=== PATIENT | male | born 1940 | race Caucasian/White ===

== ENCOUNTER 2022-05-02 15:31 | Inpatient (IN) | payer MEDICARE, OTHER ==
[2022-05-02] MEDS ORDERED: Alteplase PER PHARMACY Stroke 1 EACH MISC MISCELLANE PRN (15:47)
--- NOTE | 2022-05-02 15:51 | CT ---
EXAMINATION TYPE: CT brain wo con for TPA DATE OF EXAM: 05/02/2022 COMPARISON: 05/01/2014 HISTORY: 82-year-old male Neuro deficits, code alteplase TECHNIQUE: Examination was done in axial plane without intravenous contrast. Coronal and sagittal r econstructions performed. CT DLP: 1176.6 mGycm Automated exposure control for dose reduction was used. FINDINGS: There is no evidence of acute intracranial hemorrhage, acute ischemic changes, mass, mass-effect, or extra-axial fluid collection. There is no effacement of cerebral sulci or basal subarachnoid cister ns. There is no midline shift. Lee-white matter distinction is preserved. Hyperdense M1 segment left MCA, axial image 23, new from the 2015 exam. Mild ventriculomegaly is unchanged. Mild white matter hypodensities posterior hemispheres. Mastoid air cells are well pneumatized. Visualized paranasal sinuses are well pneumatized. IMPRESSION: Hyperdense M1 segment left MCA, new from 2015. Acute left MCA thrombus not excluded. No acute intracr anial hemorrhage, mass effect, or midline shift seen. Mild ventriculomegaly is unchanged and may part related to central cerebral atrophy.
[2022-05-02] MEDS ORDERED: ALTEPLASE BOLUS FOR STROKE 5 MG in EMPTY SYRINGE 1 SYR IV STA (15:52)
[2022-05-02] MEDS ORDERED: ALTEPLASE IV STA (15:52)
--- NOTE | 2022-05-02 15:53 | ED ---
Neuro HPI - General Stated Complaint: CBA Time Seen by Provider: 05/02/22 15:31 Source: patient, EMS, RN notes reviewed, old records reviewed Mode of arrival: EMS - History of Present Illness Is the patient presenting with stroke symptoms?: Yes Initial Comments: 82-year-old male with a history of ooaed-agd-tfox amputations bilaterally from peripheral vascular disease history of hypertension and hypertensive cardiovascular disease developmental delay and bipolar disorder who apparently took a nap around 12:30 today he was in his normal state he woke up around 2 hours later is found have right facial droop some slurred speech right upper extremity weakness. Patient is a poor historian no further information was available the information gathered this time was from paramedics. - Related Data Home Medications: Home Medications Medication Instructions Recorded Confirmed Metoprolol Succinate [Toprol XL] 25 mg PO DAILY@0800 04/09/05/02/22 QUEtiapine [SEROquel] 50 mg PO HS@199906/03/14 05/02/22 Bacitracin Zinc Oint 1 applic TOPICAL BID@0800,199905/02/22 05/02/22 Cholecalciferol [Vitamin D3 (25 50 mcg PO HS@199905/02/22 05/02/22 Mcg = 1000 Iu)] Melatonin 3 mg PO HS@199905/02/22 05/02/22 Multivitamins, Thera [Multivitamin 1 tab PO HS@199905/02/22 05/02/22 (formulary)] Sertraline [Zoloft] 50 mg PO HS@199905/02/22 05/02/22 Tamsulosin [Flomax] 0.4 mg PO DAILY@1600 05/02/22 05/02/22 amLODIPine [Norvasc] 5 mg PO DAILY@0800 05/02/22 05/02/22 hydrALAZINE HCL [Apresoline] 25 mg PO TID@0800,1600,199905/02/22 05/02/22 Allergies/Adverse Reactions: Allergies Allergy/AdvReac Type Severity Reaction Status Date / Time tuberculin, purified protein Allergy Unknown Verified 05/02/22 17:17 deriva [tuberculin,purif.prot.deriv.] Review of Systems ROS Statement: Those systems with pertinent positive or pertinent negative responses have been documented in the HPI. ROS Other: All systems not noted in ROS Statement are negative. Limitations: ROS unobtainable due to patients medical condition General Exam - General Exam Comments Initial Comments: This a well-developed well-nourished awake alert soda respond male who at times is respond and other times does not really does appear to be awake General appearance: alert, in no apparent distress Head exam: Present: atraumatic, normocephalic, normal inspection Eye exam: Present: normal appearance, PERRL, EOMI. Absent: scleral icterus, conjunctival injection, periorbital swelling ENT exam: Present: other (Right facial asymmetry with forehead sparing) Neck exam: Present: normal inspection, full ROM, other. Absent: tenderness, meningismus, lymphadenopathy Respiratory exam: Present: normal lung sounds bilaterally (No stridor JVD or bruits). Absent: respiratory distress, wheezes, rales, rhonchi, stridor Cardiovascular Exam: Present: regular rate, normal rhythm, normal heart sounds. Absent: systolic murmur, diastolic murmur, rubs, gallop, clicks GI/Abdominal exam: Present: soft, normal bowel sounds. Absent: distended, te nderness, guarding, rebound, rigid Extremities exam: Present: full ROM, normal capillary refill, other (Eqyiv-xtr-qskj agitation bilaterally with no evidence of any wound dehiscence) Neurological exam: Present: altered, motor sensory deficit (Right upper extremity weakness). Absent: CN II-XII intact (Right facial droop) Psychiatric exam: Present: normal affect, normal mood Skin exam: Present: warm, dry, intact, normal color. Absent: rash Stroke MDM - Lab Data Result diagrams: 05/02/22 15:54 05/02/22 15:54 Lab Results 05/02/22 05/02/22 05/02/22 Range/Units 15:54 15:54 15:54 WBC 8.4 (3.8-10.6) k/uL RBC 3.85 L (4.30-5.90) m/uL Hgb 12.2 L (13.0-17.5) gm/dL Hct 35.2 L (39.0-53.0) % MCV 91.4 (80.0-100.0) fL MCH 31.8 (25.0-35.0) pg MCHC 34.8 (31.0-37.0) g/dL RDW 13.0 (11.5-15.5) % Plt Count 96 L (150-450) k/uL MPV 11.6 Neutrophils % 56 % Lymphocytes % 34 % Monocytes % 4 % Eosinophils % 3 % Basophils % 0 % Neutrophils # 4.7 (1.3-7.7) k/uL Lymphocytes # 2.8 (1.0-4.8) k/uL Monocytes # 0.4 (0-1.0) k/uL Eosinophils # 0.3 (0-0.7) k/uL Basophils # 0.0 (0-0.2) k/uL Manual Slide Review Performed PT 10.7 (9.0-12.0) sec INR 1.0 (<1.2) APTT 26.9 (22.0-30.0) sec Sodium 133 L (137-145) mmol/L Potassium 4.2 (3.5-5.1) mmol/L Chloride 101 (98-107) mmol/L Carbon Dioxide 26 (22-30) mmol/L Anion Gap 6 mmol/L BUN 22 H (9-20) mg/dL Creatinine 0.70 (0.66-1.25) mg/dL Est GFR (CKD-EPI)AfAm >90 (>60 ml/min/1.73 sqM) Est GFR (CKD-EPI)NonAf 89 (>60 ml/min/1.73 sqM) Glucose 108 H (74-99) mg/dL POC Glucose (mg/dL) (70-110) mg/dL POC Glu Athletic Instructor ID Calcium 8.2 L (8.4-10.2) mg/dL Total Bilirubin 0.2 (0.2-1.3) mg/dL AST 24 (17-59) U/L ALT 14 (4-49) U/L Alkaline Phosphatase 77 (38-126) U/L Troponin I (0.000-0.034) ng/mL Total Protein 6.4 (6.3-8.2) g/dL Albumin 3.6 (3.5-5.0) g/dL 05/02/22 05/02/22 Range/Units 15:54 15:56 WBC (3.8-10.6) k/uL RBC (4.30-5.90) m/uL Hgb (13.0-17.5) gm/dL Hct (39.0-53.0) % MCV (80.0-100.0) fL MCH (25.0-35.0) pg MCHC (31.0-37.0) g/dL RDW (11.5-15.5) % Plt Count (150-450) k/uL MPV Neutrophils % % Lymphocytes % % Monocytes % % Eosinophils % % Basophils % % Neutrophils # (1.3-7.7) k/uL Lymphocytes # (1.0-4.8) k/uL Monocytes # (0-1.0) k/uL Eosinophils # (0-0.7) k/uL Basophils # (0-0.2) k/uL Manual Slide Review PT (9.0-12.0) sec INR (<1.2) APTT (22.0-30.0) sec Sodium (137-145) mmol/L Potassium (3.5-5.1) mmol/L Chloride (98-107) mmol/L Carbon Dioxide (22-30) mmol/L Anion Gap mmol/L BUN (9-20) mg/dL Creatinine (0.66-1.25) mg/dL Est GFR (CKD-EPI)AfAm (>60 ml/min/1.73 sqM) Est GFR (CKD-EPI)NonAf (>60 ml/min/1.73 sqM) Glucose (74-99) mg/dL POC Glucose (mg/dL) 111 H (70-110) mg/dL POC Glu Athletic Instructor ID Rodriguez, Edgar Calcium (8.4-10.2) mg/dL Total Bilirubin (0.2-1.3) mg/dL AST (17-59) U/L ALT (4-49) U/L Alkaline Phosphatase (38-126) U/L Troponin I <0.012 (0.000-0.034) ng/mL Total Protein (6.3-8.2) g/dL Albumin (3.5-5.0) g/dL - NIH Stroke Scale 1a. Level of Consciousness: (1) not alert, arousable 1b. LOC Questions: (2) answers no questions correctly 1c. LOC Commands: (2) performs no tasks correctly 2. Best Gaze: (0) normal 3. Visual: (0) no visual loss 4. Facial Palsy: (2) partial paralysis 5a. Motor Arm Left: (0) no drift 5b. Motor Arm Right: (3) no gravity effort 6a. Motor Leg Left: (0) no drift 6b. Motor Leg Right: (0) no drift 7. Limb Ataxia: (2) present 2 limbs 8. Sensory: (0) normal 9. Best Language: (1) mild/moderate aphasia 10. Dysarthria: (1) mild/moderate dysarthria 11. Extinction/Inattention: (0) no abnormality - Thrombolytic Inclusion/Exclusion Thrombolytic Inclusion Criteria: Symptom Onset < 4.5 h - Core Measures AMI Core Measures Followed: Yes - Medical Decision Making I did reevaluate patient on multiple occasions he did receive TPA he is a DO NOT RESUSCITATE no code patient but caregiver did request medication be given patient did have TPA/alteplase given ECG responding as improvement in his symptoms since arrival. Was pt. sent in by a medical professional or institution? @ No -[by , PA, COMPUTER HARDWARE DEVELOPER, urgent care, hospital, or senior living] Did you speak to anyone other than the patient for history? @ Paramedics upon arrival -[EMS, parent, family, police, friend?] Did you review nursing and triage notes? @ Gas and agree-[agree or disagree, why?] Were old charts reviewed? @ Yes-[outside hosp., previous admissions, EMS record, old EKG, old radiological studies, urgent care reports/EKGs, senior living records?] Differential Diagnosis? @ And she will bleed versus ischemic stroke versus hypoglycemia blood sugar was adequate no evidence of any bleeding-[chest pain, altered mental status abdominal pain women, abdominal pain men, vaginal bleeding, weakness, fever, d yspnea, syncope, headache, dizziness, GI bleed, back pain, seizure] EKG interpreted by me (3pts min.)? @ S as above as as above yes-[none] X-rays interpreted by me (1pt min.)? @ -[none] CT interpreted by me (1pt min.)? @ Yes as above-[none] U/S interpreted by me (1pt. min.)? @ -[none] What testing was considered but not performed? (CT, X-rays, U/S, labs)? Why? @ [CT, X-rays, U/S, labs? Why?] What meds were considered but not given? Why? @ -[none] Did you discuss the management of the patient with other professionals? @ Dr. Charles, Dr. Leroy, Dr. Joaquin, Dr. Guillaume's service- [professionals i.e. Dr, PA, COMPUTER HARDWARE DEVELOPER, Lab, RT, Psych Nurse, Gaming Worker, Cyanide Furnace Operator, Teacher, Primer Charging Tool Setter, field case manager? Give summary] Did you reconcile home meds? @ -[none] Was smoking cessation discussed for >3mins.? @ -[none] Was critical care preformed (if so, how long)? @ Yes 49 minutes-[none] Were there social determinants of health that impacted care today? How? (Homelessness, low income, unemployed, alcoholism, drug addiction, transportation, low edu. Level, literacy, decrease access to med. care, group home, rehab)? @ No-[Homelessness, low income, unemployed, alcoholism, drug addiction, transportation, low edu. Level, literacy, decrease access to med. care, group home, rehab?] Was there de-escalation of care discussed even if they declined? (Discuss DNR or withdrawal of care, Hospice)? @ Yes patient is a DO NOT RESUSCITATE no resuscitation medication only-[Discuss DNR or withdrawal of care, Hospice?] What co-morbidities impacted this encounter? (DM, HTN, Smoking, COPD, CAD, Cancer, CVA, Hep., AIDS, mental health diagnosis, sleep apnea, morbid obesity)? @ Hypertensive cardiovascular disease, peripheral vascular disease -[DM, HTN, Smoking, COPD, CAD, Cancer, CVA, Hep., AIDS, mental health diagnosis, sleep ap ruthy, morbid obesity?] Was patient admitted / discharged? @ Patient was admitted to this facility to ICU-[hospital course] Undiagnosed new problem with uncertain prognosis? @ -[none] Drug Therapy requiring intensive monitoring for toxicity (Heparin, Nitro, Insulin, Cardizem)? @ -[none] Were any procedures done? @ -[none] Diagnosis/symptom? @ Acute ischemic stroke-[default] Acute, or Chronic, or Acute on Chronic? @ Acute-[default] Uncomplicated (without systemic symptoms) or Complicated (systemic symptoms)? @ Systemic symptoms were positive for facial droop and aphasia and right upper extremity [default] Side effects of treatment? @ -[none] Exacerbation, Progression, or Severe Exacerbation] @ -[no] Poses a threat to life or bodily function? @ Potential-[no] - Radiology Data interpreted by me: I did review the imaging evidence of a left MCA occlusion both seen and evidence of density in the plain CT as well as on the contrast CT. - EKG Data -: EKG Interpreted by Me EKG shows normal: sinus rhythm (EKG read by me sinus rhythm a 69. Interval 181 QRS duration 138 daily since QTC 420/447 red bundle-branch block pattern nonspecific anterior configuration) Past Medical History Past Medical History: COPD, Eye Disorder, GERD/Reflux, Hypertension, Seizure Disorder, Vascular Disorder Additional Past Medical History / Comment(s): developmental delay/mental retardation. Ulcer right ankle, 2010 ULCER, SEIZURES YEARS AGO NOT TAKING MEDS FOR IT SINCE OCTOBER 2013, hypertension, PAD, carotid artery disease, hyponatremia, COPD, GERD. History of Any Multi-Drug Resistant Organisms: None Reported Additional Past Surgical History / Comment(s): L Carotid endarectomy, angiogram was done on 05/24/2014 at [facility]. Past Anesthesia/Blood Transfusion Reactions: No Reported Reaction Additional Psychological History / Comment(s): NOT ON MEDS FOR IT CURRENTLT DF/T LETHARGY - Past Family History Father Family Medical History: Unable to Obtain (Patient is adopted for further information.) Mother Family Medical History: Unable to Obtain (Patient is adopted no further information.) Course Vital Signs 05/02/22 05/02/22 05/02/22 15:35 16:06 16:15 Temperature 98.0 F Pulse Rate 68 67 67 Respiratory 18 19 21 Rate Blood Pressure 112/72 133/79 O2 Sat by Pulse 98 97 97 Oximetry 05/02/22 05/02/22 05/02/22 16:30 16:45 17:00 Temperature Pulse Rate 65 71 69 Respiratory 21 15 20 Rate Blood Pressure 132/77 116/66 126/77 O2 Sat by Pulse 96 95 96 Oximetry 05/02/22 05/02/22 05/02/22 17:30 17:45 18:00 Temperature Pulse Rate 68 68 70 Respiratory 19 17 16 Rate Blood Pressure 107/59 72/52 98/71 O2 Sat by Pulse 97 98 98 Oximetry 05/02/22 18:15 Temperature Pulse Rate 68 Respiratory 15 Rate Blood Pressure 117/70 O2 Sat by Pulse 98 Oximetry - Reevaluation(s) Reevaluation #1: 05/02/22 15:53 The patient was a code alteplase. CT was done with and without contrast. Interpretation by me initially Imaging reveals evidence of density in the right MCA the left side this is confirmed with evidence of a thrombosed on CT angio. Reevaluation #2: 05/02/22 19:15 Reevaluation the patient post alteplase reveals improvement in his facial symptoms as well as he is moving his Reevaluation #3: 05/02/22 19:16 I did discuss the case with Dr. Guillaume service patient is not a candidate for intervention. Reevaluation #4: 05/02/22 19:17 I also discussed case with Dr. Leroy from neurology and Dr. Spence in from ICU. Critical Care Time Critical Care Time: Yes Total Critical Care Time: 49 Critical Care Time: 49 minutes of critical care time which includes initial presentation with hist ory physical discussed with paramedics chart review multiple reevaluation the patient discussed with multiple physicians admission orders documentation the above Disposition Clinical Impression: Cerebrovascular accident (CVA) Disposition: ADMITTED IP TO THIS [facility] Condition: Fair Referrals: None,Stated [Primary Care Provider] - 1-2 days Decision Date: 05/02/22 Decision Time: 18:00
[2022-05-02 15:58] LABS: Glucose,Whole Blood 111 mg/dL (70-110)
--- NOTE | 2022-05-02 16:02 | CT ---
EXAMINATION TYPE: CT angio head neck DATE OF EXAM: 05/02/2022 COMPARISON: CT head same day HISTORY: 82-year-old male neurologic deficit on the right, acute, stroke suspected TECHNIQUE: Contiguous axial scanning of the head and neck performed with IV Contrast, patient injecte d with 70 mL of Isovue 370. Coronal/sagittal reconstructions performed. 3-D reconstructions generated on a dedicated independent workstation. CT DLP: 448.8 mGycm Automated exposure control for dose reduction was used. FINDINGS: NECK: There appears to be a very large hiatal hernia involving the entire stomach and occupying the left gr eater than right lower thoraces, the hernia occupies up to the left mid chest on the left [id number] atherosclerotic changes at the arch vessel origins. Moderate atherosclerotic narrowing proximal subclavian artery on the right. Moderate to severe focal stenosis origin of the right vertebral artery. Left vertebral artery is slightly more dominant. The right vertebral artery becomes even more hypopla stic at the V4 segment. Severe atherosclerotic calcification at the right carotid bifurcation with severe, greater than 80% n arrowing at the origin of both right external and internal carotid arteries by NASCET criteria. Moderate, 50% narrowing distal left common carotid artery and mild, less than 25% involving the left carotid bulb. There appears to be a large 8 mm sialolith left submandibular gland. HEAD: Again, hypoplastic V4 segment right vertebral artery. Otherwise, the left vertebral and basilar arter ies are patent. There is persistent origin left posterior cerebral artery. Otherwise, the poste rior circulation is patent. Moderate atherosclerotic calcifications in the bilateral carotid siphons without significant stenosis . There is cut off of at the distal M1 segment left MCA. One of the branch vessels appears to continue opacification. Refer to coronal image 32 and axial image 672. Remainder of the anterior circulation is patent. No aneurysmal change is seen. IMPRESSION: HEAD: 1. Acute large vessel occlusion at the M1/M2 junction left MCA. One of the M2 branch vessels remain o pacified. Critical findings called to Dr. Nix in the ER at 3:45pm. 2. Persistent origin left EVENT AV OPERATOR. Hypoplastic right vertebral artery. NECK: 3. Severe, greater than 80% proximal right ICA stenosis. 4. Moderate, approximately 50% distal left CCA stenosis. 5. Moderate atherosclerotic narrowing proximal right subclavian artery. Moderate to severe focal sten osis at the origin of the hypoplastic right vertebral artery. 6. Note a very large hiatal hernia. On the left, this occupies the left mid and lower lung. On the ri ght, at least the entire lower lung is occupied.
[2022-05-02 16:14] LABS: Partial Thromboplastin Time 26.9 sec (22.0-30.0); Prothrombin Time 10.7 sec (9.0-12.0)
[2022-05-02 16:17] LABS: Basophils % (A) 0 %; Eosinophils # (A) 0.3 k/uL (0-0.7); Eosinophils % (A) 3 %; HCT 35.2 % (39.0-53.0); HGB 12.2 gm/dL (13.0-17.5); Lymphocytes # (A) 2.8 k/uL (1.0-4.8); Lymphocytes % (A) 34 %; MCH 31.8 pg (25.0-35.0); MCHC 34.8 g/dL (31.0-37.0); MCV 91.4 fL (80.0-100.0); Mean Platelet Volume 11.6; Monocytes # (A) 0.4 k/uL (0-1.0); Monocytes % (A) 4 %; Neutrophils # (A) 4.7 k/uL (1.3-7.7); Neutrophils % (A) 56 %; RBC 3.85 m/uL (4.30-5.90); WBC 8.4 k/uL (3.8-10.6)
[2022-05-02 16:21] LABS: ALT 14 U/L (4-49); AST 24 U/L (17-59); African American GFR (CKD) >90 (>60 ml/min/1.73 sqM); Albumin 3.6 g/dL (3.5-5.0); Alkaline Phosphatase 77 U/L (38-126); Anion Gap 6 mmol/L; Blood Urea Nitrogen 22 mg/dL (9-20); Calcium 8.2 mg/dL (8.4-10.2); Carbon Dioxide 26 mmol/L (22-30); Chloride 101 mmol/L (98-107); Glucose 108 mg/dL (74-99); Non-African American GFR(CKD) 89 (>60 ml/min/1.73 sqM); Potassium 4.2 mmol/L (3.5-5.1); Sodium 133 mmol/L (137-145); Total Bilirubin 0.2 mg/dL (0.2-1.3); Total Protein 6.4 g/dL (6.3-8.2)
[2022-05-02] MEDS ORDERED: SODIUM CHLORIDE 0.9% 50 ML MINI-BAG IV ONE ×2 (16:52→20:36)
[2022-05-02 17:43] LABS: Platelet Count 96 k/uL (150-450)
--- NOTE | 2022-05-02 17:44 | XR ---
EXAMINATION TYPE: XR chest 2V DATE OF EXAM: 05/02/2022 COMPARISON: 05/01/2014 HISTORY: Altered mental status TECHNIQUE: 2 views FINDINGS: There is some patchy infiltrate in the right lung. There is elevated left diaphragm. Thorac ic aorta is atheromatous. There are chest leads. There is large hiatal hernia. IMPRESSION: Patchy right-sided interstitial infiltrate. 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 Patchy density in the right lung is new compared to the old exam.
[2022-05-02] MEDS: SODIUM CHLORIDE 0.9% 1,000 ML IV STA ×3 (19:16→20:58)
[2022-05-02 20:19] LABS: Glucose,Whole Blood 126 mg/dL (70-110)
[2022-05-02] MEDS ORDERED: NALOXONE 0.4 MG/ML 1 ML VIAL IV PRN (20:34)
[2022-05-02] MEDS: MELATONIN 3 MG TABLET PO SCH (20:56)
[2022-05-02] MEDS: hydrALAZINE HCL 25 MG TAB PO SCH (20:56)
[2022-05-02] MEDS: QUEtiapine 50 MG TAB PO SCH (20:56)
[2022-05-02] MEDS: CHOLECALCIFEROL 25 MCG (1000 IU) TABLET PO SCH (20:56)
[2022-05-02] MEDS: MULTIVITAMINS, THERA 1 EACH TAB PO SCH (20:56)
[2022-05-02] MEDS: ATORVASTATIN 80 MG TAB PO SCH (20:57)
[2022-05-02] MEDS: SERTRALINE 50 MG TAB PO SCH (20:57)
[2022-05-02] MEDS: SODIUM CHLORIDE 0.9% 1,000 ML IV SCH (20:59)
[2022-05-02] MEDS: FAMOTIDINE 20 MG/2 ML VIAL IV SCH (22:43)
--- NOTE | 2022-05-03 00:04 | P.HPIM ---
History of Present Illness H&P Date: 05/02/22 The patient is an 82-year-old male with a PMH of peripheral arterial disease with bilateral AKA, COPD, hypertension, seizure disorder, developmental delay who was brought into the emergency room by his grades 7 and 8 teacher due to concerns for stroke. The patient was confused at the time of interview with history obtained from the ED provider and from the patient's grades 7 and 8 teacher at the bedside. The patient had reportedly taken a nap earlier today at around 12:30 PM and when he woke up at around 2, the grades 7 and 8 teacher noticed that the patient now was confused and had a right-sided facial droop as well as slurred speech. He immediately activated EMS who brought the patient emergency room. Code stroke was activated and the case was discussed by the ED physician with neuro second language tutor. CT angiogram revealed an acute large vessel occlusion of the left MCA. The neuro second language tutor recommended TPA which was subsequently administered. The patient was thereafter taken to the medical ICU where he was seen and evaluated. As per the grades 7 and 8 teacher at the bedside, the patient's slurred speech and facial droop had resolved but he continued to be confused albeit improved from presentation. The patient was a very poor historian but denied any active complaints at the time of interview. Chest x-ray in the emergency room revealed patchy right-sided interstitial infiltrate with an elevated left diaphragm suggestive of diaphragmatic paralysis. EKG had revealed sinus rhythm at 69 bpm with right bundle branch blo ck with Q waves in the inferior leads as reviewed by me. Laboratory evaluation was remarkable for platelet count of 96, down from 172 in 2015. Review of systems: Unable to obtain due to mental status Physical examination: General: non toxic, no distress, appears at stated age, normal weight Derm: no unusual rashes/lesions, warm Head: atraumatic, normocephalic, symmetric Eyes: EOMI, no lid lag, anicteric sclera, pupils equal round reactive to light ENT: Nose and ears atraumatic Neck: No cervical lymphadenopathy, trachea midline, supple Mouth: no lip lesion, mucus membranes moist Cardiovascular: S1S2 reg, no murmur, positive dorsalis pedis pulse bilateral, no edema Lungs: CTA bilateral, no rhonchi, no rales, no accessory muscle use Abdominal: soft, nontender to palpation, no guarding Ext: Bilateral AKA, muscle strength 5 out of 5 of bilateral upper extremities, no gross muscle atrophy, no contractures Neuro: CN II-XI grossly intact, no gross focal neuro deficits Psych: Confused, oriented only to self, not oriented to time or place Assessment/plan 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 -Neurology consulted -Follow-up CT brain without contrast post TPA -Neuro checks -GENERAL MILLING SUPERINTENDENT and PT consults -Nothing by mouth for now -Optimal blood pressure control Thrombocytopenia -Unclear etiology -Monitor for now Chronic conditions: Hypertension, hyperlipidemia -Continue with home meds DVT prophylaxis -Bakari AKA, s/p TPA The patient is admitted with an anticipated greater than 2 midnight stay for evaluation of acute CVA CODE STATUS: Full Code Discussed with: Secondary Connector Armature, ED physician Anticipated discharge date: 2-[address]: Home Review of Systems ROS unobtainable: due to mental status Past Medical History Past Medical History: Coronary Artery Disease (CAD), COPD, Eye Disorder, GERD/ Reflux, Hypertension, Seizure Disorder, Vascular Disorder Additional Past Medical History / Comment(s): developmental delay/mental retardation. Ulcer right ankle, 2010 ULCER, SEIZURES YEARS AGO NOT TAKING MEDS FOR IT SINCE OCTOBER 2013, PAD, hyponatremia. History of Any Multi-Drug Resistant Organisms: None Reported Additional Past Surgical History / Comment(s): L Carotid endarectomy, angiogram was done on 05/24/2014 at [facility], bilateral AKA Past Anesthesia/Blood Transfusion Reactions: No Reported Reaction Past Psychological History: Bipolar Additional Psychological History / Comment(s): NOT ON MEDS FOR IT CURRENTLT DF/T LETHARGY Smoking Status: Former smoker Past Alcohol Use History: Rare Past Drug Use History: None Reported Additional Drug Use History / Comment(s): patient drinks 1 NA beer per month - Past Family History Father Family Medical History: Unable to Obtain Mother Family Medical History: Unable to Obtain Additional Family Medical History / Comment(s): Patient confused Medications and Allergies Home Medications Medication Instructions Recorded Confirmed Type Metoprolol Succinate [Toprol XL] 25 mg PO DAILY@0800 04/09/14 05/02/22 History QUEtiapine [SEROquel] 50 mg PO HS@199906/03/14 05/02/22 History Bacitracin Zinc Oint 1 applic TOPICAL BID@799,199905/02/22 05/02/22 History Cholecalciferol [Vitamin D3 (25 50 mcg PO HS@199905/02/22 05/02/22 History Mcg = 1000 Iu)] Melatonin 3 mg PO HS@199905/02/22 05/02/22 History Multivitamins, Thera [Multivitamin 1 tab PO HS@199905/02/22 05/02/22 History (formulary)] Sertraline [Zoloft] 50 mg PO HS@199905/02/22 05/02/22 History Tamsulosin [Flomax] 0.4 mg PO DAILY@1600 05/02/22 05/02/22 History amLODIPine [Norvasc] 5 mg PO DAILY@0800 05/02/22 05/02/22 History hydrALAZINE HCL [Apresoline] 25 mg PO TID@0800,1600,199905/02/22 05/02/22 History Allergies Allergy/AdvReac Type Severity Reaction Status Date / Time tuberculin, purified protein Allergy Unknown Verified 05/02/22 17:17 deriva [tuberculin,purif.prot.deriv.] Physical Exam Vitals: Vital Signs Temp Pulse Resp BP Pulse Ox 05/02/22 23:15 71 19 135/75 96 05/02/22 23:00 71 20 118/64 95 05/02/22 22:45 64 5 L 96 05/02/22 22:30 64 13 115/79 91 L 05/02/22 22:15 68 22 96 05/02/22 22:00 64 21 117/81 95 05/02/22 21:45 65 14 117/81 95 05/02/22 21:30 71 15 113/79 95 05/02/22 21:15 71 14 113/79 95 05/02/22 21:00 74 16 129/71 97 05/02/22 20:45 70 22 129/71 95 05/02/22 20:30 99.0 F 73 13 139/124 94 L 05/02/22 20:21 99.0 F 05/02/22 20:15 71 13 139/124 97 05/02/22 20:11 139/124 05/02/22 19:45 14 121/89 96 05/02/22 19:30 66 28 H 119/78 96 05/02/22 19:15 71 10 L 105/66 97 05/02/22 19:00 67 13 105/53 97 05/02/22 18:45 67 16 91/56 98 05/02/22 18:30 70 17 127/74 97 05/02/22 18:15 68 15 117/70 98 05/02/22 18:00 70 16 98/71 98 05/02/22 17:45 68 17 72/52 98 05/02/22 17:30 68 19 107/59 97 05/02/22 17:00 69 20 126/77 96 05/02/22 16:45 71 15 116/66 95 05/02/22 16:30 65 21 132/77 96 05/02/22 16:15 67 21 133/79 97 05/02/22 16:06 67 19 112/72 97 05/02/22 15:35 98.0 F 68 18 98 Intake and Output 05/02/22 05/02/22 05/03/22 14:59 22:59 06:59 Intake Total 200 100 Output Total 0 Balance 200 100 Intake: IV 200 100 Sodium Chloride 0.9% 1, 200 100 000 ml @ 100 mls/hr IV . Q10H [facility] Rx#:[id number] Output: Urine 0 Other: # Voids 1 Weight 52.526 kg Results CBC & Chem 7: 05/02/22 15:54 05/02/22 15:54 Labs: Abnormal Lab Results - Last 24 Hours (Table) 05/02/22 05/02/22 05/02/22 Range/Units 15:54 15:54 15:56 RBC 3.85 L (4.30-5.90) m/uL Hgb 12.2 L (13.0-17.5) gm/dL Hct 35.2 L (39.0-53.0) % Plt Count 96 L (150-450) k/uL Sodium 133 L (137-145) mmol/L BUN 22 H (9-20) mg/dL Glucose 108 H (74-99) mg/dL POC Glucose (mg/dL) 111 H (70-110) mg/dL Calcium 8.2 L (8.4-10.2) mg/dL 05/02/22 Range/Units 20:17 RBC (4.30-5.90) m/uL Hgb (13.0-17.5) gm/dL Hct (39.0-53.0) % Plt Count (150-450) k/uL Sodium (137-145) mmol/L BUN (9-20) mg/dL Glucose (74-99) mg/dL POC Glucose (mg/dL) 126 H (70-110) mg/dL Calcium (8.4-10.2) mg/dL Thrombosis Risk Factor Assmnt - Choose All That Apply Each Risk Factor Represents 3 Points: Age 75 years or older Other congenital or acquired thrombophilia - If yes, enter type in comment: No Each Risk Factor Represents 5 Points: Stroke (< 1 month) Thrombosis Risk Factor Assessment Total Risk Factor Score: 8 Thrombosis Risk Factor Assessment Level: High Risk
[2022-05-03] MEDS: SODIUM CHLORIDE 0.9% 1,000 ML IV SCH ×2 (04:55→15:30)
[2022-05-03 06:19] LABS: Basophils # (A) 0.1 k/uL (0-0.2); Basophils % (A) 0 %; Eosinophils # (A) 0.2 k/uL (0-0.7); Eosinophils % (A) 1 %; HCT 37.3 % (39.0-53.0); HGB 12.7 gm/dL (13.0-17.5); Lymphocytes # (A) 4.7 k/uL (1.0-4.8); Lymphocytes % (A) 38 %; MCH 31.7 pg (25.0-35.0); MCV 93.2 fL (80.0-100.0); Mean Platelet Volume 11.9; Monocytes # (A) 0.5 k/uL (0-1.0); Monocytes % (A) 4 %; Neutrophils # (A) 6.9 k/uL (1.3-7.7); Neutrophils % (A) 55 %; Platelet Count 102 k/uL (150-450); RBC 4.01 m/uL (4.30-5.90); WBC 12.6 k/uL (3.8-10.6)
[2022-05-03 06:32] LABS: African American GFR (CKD) >90 (>60 ml/min/1.73 sqM); Anion Gap 7 mmol/L; Blood Urea Nitrogen 14 mg/dL (9-20); Calcium 8.3 mg/dL (8.4-10.2); Carbon Dioxide 24 mmol/L (22-30); Chloride 105 mmol/L (98-107); Glucose 93 mg/dL (74-99); Magnesium 1.8 mg/dL (1.6-2.3); Non-African American GFR(CKD) >90 (>60 ml/min/1.73 sqM); Potassium 4.2 mmol/L (3.5-5.1); Sodium 136 mmol/L (137-145)
--- NOTE | 2022-05-03 07:17 | P.CNPUL ---
History of Present Illness Consult date: 05/03/22 Chief complaint: CVA History of present illness: 82-year-old male patient, with multiple medical problems and comorbidities. The patient is quite debilitated and the patient has developmental delay in addition to severe peripheral vascular disease and the patient has undergone previous AKA in addition to that the patient has COPD and hypertension and seizure disorder. The patient was brought to the emergency department by his fashion designer due to concerns of stroke. At that time, the patient was confused. The patient apparently was taking a nap at around 12:30 PM and he woke up at around 2 PM and he was noted to be confused and that has been some right facial droop also. Based on that, he came into the emergency. CAT scan of the brain was done in the form of CT angiogram and the patient had an acute large vessel occlusion involving the left MCA. The neuro male infertility specialist recommended TPA. This was administered in the emergency department and the patient following that was transferred to the intensive care unit for further management. Note that he does have also a component of chronic thrombocytopenia. His platelet count has been 96 yesterday and 102 today. On today's evaluation, the patient has a don't was about 4.6 with a hemoglobin 12.7 and a platelet count of 102. BUN is at 14 with a creatinine of 0.6 and a sodium level is at 136. Troponins are negative. Liver function tests are essentially within normal limits. 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 On today's evaluation,the patient has some residual weakness in his right upper extremity. He also has some residual right facial droop. He is unable to communicate and is unable to provide adequate history because of an underlying developmental delay. No seizure activity has been noted. The blood pressure this morning is 124/66. No issues with hypertension overnight. Review of Systems ROS unobtainable: due to mental status Past Medical History Past Medical History: Coronary Artery Disease (CAD), COPD, Eye Disorder, GERD/Reflux, Hypertension, Seizure Disorder, Vascular Disorder Additional Past Medical History / Comment(s): developmental delay/mental retardation. Ulcer right ankle, 2010 ULCER, SEIZURES YEARS AGO NOT TAKING MEDS FOR IT SINCE OCTOBER 2013, PAD, hyponatremia. History of Any Multi-Drug Resistant Organisms: None Reported Additional Past Surgical History / Comment(s): L Carotid endarectomy, angiogram was done on 05/24/2014 at [facility], bilateral AKA Past Anesthesia/Blood Transfusion Reactions: No Reported Reaction Past Psychological History: Bipolar Additional Psychological History / Comment(s): NOT ON MEDS FOR IT CURRENTLT DF/T LETHARGY Smoking Status: Former smoker Past Alcohol Use History: Rare Past Drug Use History: None Reported Additional Drug Use History / Comment(s): patient drinks 1 NA beer per month - Past Family History Father Family Medical History: Unable to Obtain Mother Family Medical History: Unable to Obtain Additional Family Medical History / Comment(s): Patient confused Medications and Allergies Home Medications Medication Instructions Recorded Confirmed Type Metoprolol Succinate [Toprol XL] 25 mg PO DAILY@0800 04/09/14 05/02/22 History QUEtiapine [SEROquel] 50 mg PO HS@199906/03/14 05/02/22 History Bacitracin Zinc Oint 1 applic TOPICAL BID@0800,199905/02/22 05/02/22 History Cholecalciferol [Vitamin D3 (25 50 mcg PO HS@199905/02/22 05/02/22 History Mcg = 1000 Iu)] Melatonin 3 mg PO HS@199905/02/22 05/02/22 History Multivitamins, Thera [Multivitamin 1 tab PO HS@199905/02/22 05/02/22 History (formulary)] Sertraline [Zoloft] 50 mg PO HS@199905/02/22 05/02/22 History Tamsulosin [Flomax] 0.4 mg PO DAILY@1600 05/02/22 05/02/22 History amLODIPine [Norvasc] 5 mg PO DAILY@0800 05/02/22 05/02/22 History hydrALAZINE HCL [Apresoline] 25 mg PO TID@0800,1600,199905/02/22 05/02/22 History Allergies Allergy/AdvReac Type Severity Reaction Status Date / Time tuberculin, purified protein Allergy Unknown Verified 05/02/22 17:17 deriva [tuberculin,purif.prot.deriv.] Physical Exam Vitals: Vital Signs Temp Pulse Resp BP Pulse Ox 05/03/22 07:00 60 16 132/81 96 05/03/22 06:45 58 L 16 136/75 96 05/03/22 06:30 66 27 H 140/59 96 05/03/22 06:15 64 13 139/73 92 L 05/03/22 06:00 59 L 19 131/77 96 05/03/22 05:45 63 15 152/71 95 05/03/22 05:30 65 16 146/88 89 L 05/03/22 05:15 64 20 122/62 96 05/03/22 05:00 69 16 138/67 96 05/03/22 04:45 62 13 125/69 95 05/03/22 04:30 62 9 L 117/87 95 05/03/22 04:15 62 9 L 104/67 95 05/03/22 04:00 98.2 F 61 10 L 115/60 96 05/03/22 03:45 60 16 104/59 97 05/03/22 03:30 63 12 129/63 96 05/03/22 03:15 70 17 109/60 94 L 05/03/22 03:00 63 14 05/03/22 02:45 66 23 94 L 05/03/22 02:30 64 29 H 98 05/03/22 02:15 73 35 H 94 L 05/03/22 02:00 84 11 L 118/72 93 L 05/03/22 01:45 76 12 91 L 05/03/22 01:30 74 14 114/66 97 05/03/22 01:15 22 94 L 05/03/22 01:00 72 12 112/73 95 05/03/22 00:45 63 12 96 05/03/22 00:30 68 15 118/61 96 05/03/22 00:15 63 15 95 05/03/22 00:03 69 24 94 L 05/03/22 00:00 99.1 F 65 16 123/71 95 05/02/22 23:51 99.1 F 66 12 118/61 93 L 05/02/22 23:45 65 26 H 96 05/02/22 23:30 67 13 135/75 97 05/02/22 23:15 71 19 135/75 96 05/02/22 23:00 71 20 118/64 95 05/02/22 22:45 64 5 L 96 05/02/22 22:30 64 13 115/79 91 L 05/02/22 22:15 68 22 96 05/02/22 22:00 64 21 117/81 95 05/02/22 21:45 65 14 117/81 95 05/02/22 21:30 71 15 113/79 95 05/02/22 21:15 71 14 113/79 95 05/02/22 21:00 74 16 129/71 97 05/02/22 20:45 70 22 129/71 95 05/02/22 20:30 99.0 F 73 13 139/124 94 L 05/02/22 20:21 99.0 F 05/02/22 20:15 71 13 139/124 97 05/02/22 20:11 139/124 05/02/22 19:45 14 121/89 96 05/02/22 19:30 66 28 H 119/78 96 05/02/22 19:15 71 10 L 105/66 97 05/02/22 19:00 67 13 105/53 97 05/02/22 18:45 67 16 91/56 98 05/02/22 18:30 70 17 127/74 97 05/02/22 18:15 68 15 117/70 98 05/02/22 18:00 70 16 98/71 98 05/02/22 17:45 68 17 72/52 98 05/02/22 17:30 68 19 107/59 97 05/02/22 17:00 69 20 126/77 96 05/02/22 16:45 71 15 116/66 95 05/02/22 16:30 65 21 132/77 96 05/02/22 16:15 67 21 133/79 97 05/02/22 16:06 67 19 112/72 97 05/02/22 15:35 98.0 F 68 18 98 Intake and Output 05/02/22 05/03/22 05/03/22 22:59 06:59 14:59 Intake Total 200 700 Output Total 0 100 Balance 200 600 Intake: IV 200 700 Sodium Chloride 0.9% 1, 200 700 000 ml @ 100 mls/hr IV . Q10H [facility] Rx#:[id number] Output: Urine 0 100 Other: Voiding Method External Catheter # Voids 1 1 Weight 52.526 kg 50.2 kg General: non toxic, no distress, appears at stated age, currently on 2 L of O2 nasal cannula Derm: no unusual rashes/lesions, warm Head: atraumatic, normocephalic, symmetric Eyes: EOMI, no lid lag, anicteric sclera, pupils equal round reactive to light ENT: Nose and ears atraumatic Neck: No cervical lymphadenopathy, trachea midline, supple Mouth: no lip lesion, mucus membranes moist Cardiovascular: S1S2 reg, no murmur, positive dorsalis pedis pulse bilateral, no edema Lungs: Diminished breath on lung bases more so on the left lung base Abdominal: soft, nontender to palpation, no guarding Ext: Bilateral AKA, no gross muscle atrophy, no contractures Neuro: Neurologically, the patient is awake. He is unable to follow commands and answering questions and he is or 81. At the same time, there is an obvious facial droop on the right and a right upper extremities weaker compared to the left. I would assume the motor power in the right upper extremity is 4/5 in the motor function left side is 5 over 5. The patient has bilateral amputations and lower activities above the knee. Psych: Confused, oriented only to self, not oriented to time or place Results - Laboratory Findings CBC and BMP: 05/03/22 05:44 05/03/22 05:44 PT/INR, D-dimer PT 10.7 sec (9.0-12.0) 05/02/22 15:54 INR 1.0 (<1.2) 05/02/22 15:54 Abnormal lab findings: Abnormal Labs 05/02/22 05/02/22 05/02/22 15:54 15:54 15:56 WBC RBC 3.85 L Hgb 12.2 L Hct 35.2 L Plt Count 96 L Sodium 133 L BUN 22 H Creatinine Glucose 108 H POC Glucose (mg/dL) 111 H Calcium 8.2 L 05/02/22 05/03/22 05/03/22 20:17 05:44 05:44 WBC 12.6 H RBC 4.01 L Hgb 12.7 L Hct 37.3 L Plt Count 102 L Sodium 136 L BUN Creatinine 0.62 L Glucose POC Glucose (mg/dL) 126 H Calcium 8.3 L Assessment and Plan Plan: Acute CVA post TPA administration. The patient presented with right facial droop and right approximately weakness. The patient had large vessel occlusion involving the M1/M2 junction, left MCA. Note that CVA also showed a persistent origin of the left GRILL ATTENDANT and hypoplastic right vertebral artery. There was also evidence of severe greater than 80% occlusion of the proximal right ICA and moderate 50% distal left GRILL ATTENDANT stenosis. 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 The patient received thrombolytics. There has been some interval neurologic improvement although residual right facial weakness still present. Hemodynamically stable. 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 Neuro checks Neurologic consultation CAT scan of the brain 24 hours post thrombolytic administration and this has been ordered May likely benefit from an MRI of the brain This is likely a thrombotic CVA origin could be the right ICA. Vascular surgery will be also involved. Echocardiogram Fasting lipid profile Will start antiplatelet treatment post 24 hours Start the patient on high-dose statins with Lipitor 80 mg daily speech to evaluate his swallow Aspiration precautions Hold his hydralazine and Norvasc for now. I do not want to drop his blood pressure any further. He does not have any acute hypertensive reaction We'll continue to follow
[2022-05-03] MEDS: hydrALAZINE HCL 25 MG TAB PO SCH ×3 (09:31→20:20)
[2022-05-03] MEDS: METOPROLOL SUCCINATE (ER) 25 MG TAB.ER.24H PO SCH (09:31)
[2022-05-03] MEDS: amLODIPine 5 MG TAB PO SCH (09:31)
[2022-05-03] MEDS: FAMOTIDINE 20 MG/2 ML VIAL IV SCH ×2 (09:33→20:25)
--- NOTE | 2022-05-03 10:59 | P.CNNES ---
History of Present Illness Consult date: 05/03/22 Requesting physician: Haroon Nix Reason for Consult: ischemic stroke status post alteplase History of Present Illness: This is an 82-year-old gentleman with history of the mental delay, left carotid endarterectomy, hypertension, amputation above both knees due to peripheral vascular disease, coronary artery disease who presented emergency department on 05/02/2022 around 15:31 because of right upper extremity weakness, facial droop and slurred speech. Vision presented to our facility at around Patient could not provide a history for me. History is obtained from ED physician and his caregiver. Seems to the patient apparently took a nap around 12:30 in the afternoon yesterday and he was in his normal state then 2 hours later he was found to have right facial droop, some slurred speech, right upper extremity weakness. As a result of it was suspected that the patient had a stroke and was taken to the hospital via EMS. They she is not on any anticoagulation or any antiplatelet. According to his caregiver she is not aware that the patient has history of seizure and she's been taking care of him for 6 month but according to the medical record it seems that he has a history of seizure disorder and he' s not been on any medication since 2013. Some of the workup during this hospital visit consisted of: As a result of his stroke symptoms a stroke code was activated. Initial serum glucose is 108, sodium is 133 calcium is 8.2 magnesium is 1.8 AST and ALT is within normal limits. CT of the head is reported as hyperdense M1 segment left MCA knee from 2015. Acute left MCA thrombus not excluded. No acute intracranial hemorrhage, mass effect or midline shift is seen. Mild ventriculomegaly is unchanged and may be partly related to central cerebral atrophy. I personally reviewed the CT of the head and I agree of the report. CT angiography of the head is reported as acute large vessel occlusion at the M1 and M2 junction of the left MCA. One of the M2 branches vessel remains opacified. Persistent origin of the left MUNICIPAL FIREFIGHTER. Hypoplastic right vertebral artery. CT angiography of the neck is reported as severe greater than 80% proximal right ICA stenosis. Moderate approximate 50% distal left common carotid stenosis. Moderate office carotid narrowing proximal right subclavian artery. 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 Note a very large hiatal hernia. On the left this occupies the left and mid and lower lung. On the right at least the entire lower lung is occupied. EKG is reported as sinus rhythm. Right bundle branch block, anterior myocardial infarction of indeterminate age. Abnormal EKG. NIH stroke scale 12 per ED. The points were 1 for level of consciousness, 2 points for loss of conscious questions, 2 points for loss consciousness commands, 2 points for partial paralysis for the phase, motor arm weakness is 3, limb ataxia was 2, best language is 1 and dysarthria is 1. As a result the ED spoke with the stroke attending (Dr. Guillaume) and it was agreed to pursue with IV TPA. The ED physician notified me that after the IV also place the patient symptoms was improving compared to his initial presentation. Patient received a bolus of 5 mg at around 1600 and the the infusion of 43 mg was completed at 1700. Also per the ED physician called me and stated his legal guardians did not went to pursue with any intervention for the thrombus on the left at MCA and it's noted in the ED physician that the interventional neurologist stated that he is not a candidate for intervention. Review of Systems Review of system: The 12 point system was reviewed and apparent positive and negative per HPI. Past Medical History Past Medical History: Coronary Artery Disease (CAD), COPD, Eye Disorder, GERD/Reflux, Hypertension, Seizure Disorder, Vascular Disorder Additional Past Medical History / Comment(s): developmental delay/mental retardation. Ulcer right ankle, 2011 ULCER, SEIZURES YEARS AGO NOT TAKING MEDS FOR IT SINCE OCTOBER 2013, PAD, hyponatremia. History of Any Multi-Drug Resistant Organisms: None Reported Additional Past Surgical History / Comment(s): L Carotid endarectomy, angiogram was done on 05/24/2014 at [facility], bilateral AKA Past Anesthesia/Blood Transfusion Reactions: No Reported Reaction Past Psychological History: Bipolar Additional Psychological History / Comment(s): NOT ON MEDS FOR IT CURRENTLT DF/T LETHARGY Smoking Status: Former smoker Past Alcohol Use History: Rare Past Drug Use History: None Reported Additional Drug Use History / Comment(s): patient drinks 1 NA beer per month - Past Family History Father Family Medical History: Unable to Obtain Mother Family Medical History: Unable to Obtain Additional Family Medical History / Comment(s): Patient confused Medications and Allergies Home Medications Medication Instructions Recorded Confirmed Type Metoprolol Succinate [Toprol XL] 25 mg PO DAILY@0800 04/09/14 05/02/22 History QUEtiapine [SEROquel] 50 mg PO HS@199906/03/14 05/02/22 History Bacitracin Zinc Oint 1 applic TOPICAL BID@0800,199905/02/22 05/02/22 History Cholecalciferol [Vitamin D3 (25 50 mcg PO HS@199905/02/22 05/02/22 History Mcg = 1000 Iu)] Melatonin 3 mg PO HS@199905/02/22 05/02/22 History Multivitamins, Thera [Multivitamin 1 tab PO HS@199905/02/22 05/02/22 History (formulary)] Sertraline [Zoloft] 50 mg PO HS@199905/02/22 05/02/22 History Tamsulosin [Flomax] 0.4 mg PO DAILY@159905/02/22 05/02/22 History amLODIPine [Norvasc] 5 mg PO DAILY@0800 05/02/22 05/02/22 History hydrALAZINE HCL [Apresoline] 25 mg PO TID@0800,1600,199905/02/22 05/02/22 History Allergies Allergy/AdvReac Type Severity Reaction Status Date / Time tuberculin, purified protein Allergy Unknown Verified 05/02/22 17:17 deriva [tuberculin,purif.prot.deriv.] Physical Examination - Vital Signs Vital Signs: Vital Signs Temp Pulse Resp BP Pulse Ox 05/03/22 07:00 60 16 132/81 96 05/03/22 06:45 58 L 16 136/75 96 05/03/22 06:30 66 27 H 140/59 96 05/03/22 06:15 64 13 139/73 92 L 05/03/22 06:00 59 L 19 131/77 96 05/03/22 05:45 63 15 152/71 95 05/03/22 05:30 65 16 146/88 89 L 05/03/22 05:15 64 20 122/62 96 05/03/22 05:00 69 16 138/67 96 05/03/22 04:45 62 13 125/69 95 05/03/22 04:30 62 9 L 117/87 95 05/03/22 04:15 62 9 L 104/67 95 05/03/22 04:00 98.2 F 61 10 L 115/60 96 05/03/22 03:45 60 16 104/59 97 05/03/22 03:30 63 12 129/63 96 05/03/22 03:15 70 17 109/60 94 L 05/03/22 03:00 63 14 05/03/22 02:45 66 23 94 L 05/03/22 02:30 64 29 H 98 05/03/22 02:15 73 35 H 94 L 05/03/22 02:00 84 11 L 118/72 93 L 05/03/22 01:45 76 12 91 L 05/03/22 01:30 74 14 114/66 97 05/03/22 01:15 22 94 L 05/03/22 01:00 72 12 112/73 95 05/03/22 00:45 63 12 96 05/03/22 00:30 68 15 118/61 96 05/03/22 00:15 63 15 95 05/03/22 00:03 69 24 94 L 05/03/22 00:00 99.1 F 65 16 123/71 95 05/02/22 23:51 99.1 F 66 12 118/61 93 L 05/02/22 23:45 65 26 H 96 05/02/22 23:30 67 13 135/75 97 05/02/22 23:15 71 19 135/75 96 05/02/22 23:00 71 20 118/64 95 05/02/22 22:45 64 5 L 96 05/02/22 22:30 64 13 115/79 91 L 05/02/22 22:15 68 22 96 05/02/22 22:00 64 21 117/81 95 05/02/22 21:45 65 14 117/81 95 05/02/22 21:30 71 15 113/79 95 05/02/22 21:15 71 14 113/79 95 05/02/22 21:00 74 16 129/71 97 05/02/22 20:45 70 22 129/71 95 05/02/22 20:30 99.0 F 73 13 139/124 94 L 05/02/22 20:21 99.0 F 05/02/22 20:15 71 13 139/124 97 05/02/22 20:11 139/124 05/02/22 19:45 14 121/89 96 05/02/22 19:30 66 28 H 119/78 96 05/02/22 19:15 71 10 L 105/66 97 05/02/22 19:00 67 13 105/53 97 05/02/22 18:45 67 16 91/56 98 05/02/22 18:30 70 17 127/74 97 05/02/22 18:15 68 15 117/70 98 05/02/22 18:00 70 16 98/71 98 05/02/22 17:45 68 17 72/52 98 05/02/22 17:30 68 19 107/59 97 05/02/22 17:00 69 20 126/77 96 05/02/22 16:45 71 15 116/66 95 05/02/22 16:30 65 21 132/77 96 05/02/22 16:15 67 21 133/79 97 05/02/22 16:06 67 19 112/72 97 05/02/22 15:35 98.0 F 68 18 98 Intake and Output 05/02/22 05/03/22 05/03/22 22:59 06:59 14:59 Intake Total 200 700 100 Output Total 0 100 0 Balance 200 600 100 Intake: IV 200 700 100 Sodium Chloride 0.9% 1, 200 700 100 000 ml @ 100 mls/hr IV . Q10H [facility] Rx#:[id number] Output: Urine 0 100 0 Other: Voiding Method External Catheter # Voids 1 1 Weight 52.526 kg 50.2 kg GENERAL: The patient is lying in bed and is not in acute distress. CHEST: The heart rate is regular rate rhythm. No murmurs to auscultation. LUNG: Clear to auscultation bilaterally no wheezing noted throughout. Not labored breathing. ABDOMEN/GI: Bowel sounds present in all 4 quadrants. No tenderness to palpation throughout. NEUROLOGICAL: Somewhat limited because of his cooperation. Higher mental function: The patient is awake, alert, oriented to self. He could not tell me the month and year or place and with options he would yes to all options. Patient appears to have expressive aphasia. Patient is following simple commands. No neglect. Cranial nerves: The pupils are round, equal and reactive to light. Visual monteiro is a bit limited since was looking at finger and not nose while examining him but appear full throughout. Extraocular movement is intact no nystagmus is noted. Facial sensation is normal to touch throughout. The facial strength is mild right lower facial weakness. Tongue is midline and moved [id number] without any difficulty. No dysarthria is noted. Shoulder shrug is normal bilaterally. Motor: The strength is somewhat limited because of cooperation but no pronator drift in uppers and appears equal. 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 Has above knee amputation and able to raise proximally bilaterally. Normal tone and bulk. Cerebellum: Normal finger to nose bilaterally. Sensation: Sensation is normal to touch throughout. Reflexes (right/left): 1+ throughout. Plantars: Has above knee amputation bilaterally. Results - Laboratory Findings CBC and BMP: 05/03/22 05:44 05/03/22 05:44 Abnormal Lab Findings: Abnormal Labs 05/02/22 05/02/22 05/02/22 15:54 15:54 15:56 WBC RBC 3.85 L Hgb 12.2 L Hct 35.2 L Plt Count 96 L Sodium 133 L BUN 22 H Creatinine Glucose 108 H POC Glucose (mg/dL) 111 H Calcium 8.2 L 05/02/22 05/03/22 05/03/22 20:17 05:44 05:44 WBC 12.6 H RBC 4.01 L Hgb 12.7 L Hct 37.3 L Plt Count 102 L Sodium 136 L BUN Creatinine 0.62 L Glucose POC Glucose (mg/dL) 126 H Calcium 8.3 L Assessment and Plan Assessment: Acute ischemic stroke status post IV TPA (presented with right sided weakness, facial weakness, speech difficulty and dysarthria with NIH 12 on presentation). Currently symptoms improving but continues to have right facial droop and expressive aphasia Left MCA thrombus (M1/M2 junction). Stroke seems embolic. 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 Continue Lipitor 80 mg daily at bedtime for secondary stroke prophylaxis and as well as help stabilize the plaque. I also ordered MRI of the brain 2-D echo, lipid panel are ordered and pending Vascular surgery team is consulted for the carotid stenosis. Also he has Moderate carotid narrowing proximal right subclavian artery. 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 It seems that the legal guardian declined any intervention for the thrombus of the left MCA according to ED physician and interventional neurologist (Dr. Guillaume) stated no intervention since patient improvement and risk outweigh the benefit. PT OT and SWINE NUTRITIONIST are consulted Continue neuro checks Continue cardiac monitoring Per the IV TPA protocol blood pressure should be less than 185 and a systolic and diastolic less than 110. We'll defer management to the primary team. We'll defer the rest of the medical measure the primary team For DVT prophylaxis continue SCDs and will start subq heparin or Lovenox if negative for bleed on repeat Ct head. The plan was discussed with the patient and his caregiver (Ashely) as well patient's nurse. Thank you for the consultation. Time with Patient: Greater than 30
--- NOTE | 2022-05-03 11:25 | P.GSCN ---
History of Present Illness Consult date: 05/03/22 Reason for Consult: Severe right ICA stenosis Requesting physician: Eric Martinez History of present illness: This is a pleasant 82-year-old male who was brought into the emergency department yesterday for concerns for stroke. Patient has a past medical history including developmental delay, bipolar disorder, peripheral vascular disease status post bilateral [id number] amputations, coronary artery disease, hypertension, COPD and seizure disorder. Apparently yesterday patient had taken a nap and when he woke up the automotive service writer noticed that he had a right facial droop and some slurring of his speech as well as right upper extremity weakness. He was brought into the emergency department and a code stroke was called and patient was started on alteplase. He had a CT of the brain that showed a hyperdense area M1 segment left MCA possible left MCA thrombus. He also had a CT angiogram of the head and neck the neck showed greater than 80% both external and internal carotid arteries on the right and approximately 25% narrowing of the left carotid bulb. He also had a right subclavian artery with moderate narrowing in the head showed a large vessel occlusion M1 M2 junction at left MCA. Vascular surgery was consulted for right ICA stenosis. Patient seen and examined in the ICU. His caretakers at the bedside. Patient is very pleasant she's awake and alert he is oriented to self which seems to be his baseline per automotive service writer. He is able to follow commands. Does appear to have slight right facial droop and minimal weakness of the right upper extremity. No other complaints at this time per patient. He denies chest pain, shortness of breath, abdominal pain, nausea or vomiting. He does not report any visual changes. As he was evaluated by speech this morning who recommended initiation of dysphagia type to ground with nectar thickened liquids and aspiration precautions. Imaging Brain CT: Hyperdense M1 segment of left MCA, new from 2014. Acute left MCA thrombus not excluded. No acute intracranial hemorrhage, mass effect or midline shift seen. Mild ventriculomegaly is unchanged and may part related to central cerebral atrophy CT angiogram head and neck: Head reports acute large vessel occlusion at the M1/M2 junction left MCA. One of the M2 branch vessels remain opacified. Per sistent origin left PHYSICIAN ASSISTANT CERTIFIED. Hypoplastic right vertebral artery. Neck. Severe greater than 80% proximal right ICA stenosis, moderate approximately 50% distal left CCA stenosis. Moderate arthrosclerotic narrowing proximal right subclavian artery. Moderate to severe focal stenosis at the origin of the hypoplastic right vertebral artery. Very large hiatal hernia on left eye twice left mid and lower lung. On the right at least entire lower lung is occupied. Review of Systems A 14 point review systems was completed all pertinent positives and negatives as stated in the HPI. Past Medical History Past Medical History: Coronary Artery Disease (CAD), COPD, Eye Disorder, GERD/Reflux, Hypertension, Seizure Disorder, Vascular Disorder Additional Past Medical History / Comment(s): developmental delay/mental retardation. Ulcer right ankle, 2010 ULCER, SEIZURES YEARS AGO NOT TAKING MEDS FOR IT SINCE OCTOBER 2013, PAD, hyponatremia. History of Any Multi-Drug Resistant Organisms: None Reported Additional Past Surgical History / Comment(s): L Carotid endarectomy, angiogram was done on 05/24/2014 at [facility], bilateral AKA Past Anesthesia/Blood Transfusion Reactions: No Reported Reaction Past Psychological History: Bipolar Additional Psychological History / Comment(s): NOT ON MEDS FOR IT CURRENTLT DF/T LETHARGY Smoking Status: Former smoker Past Alcohol Use History: Rare Past Drug Use History: None Reported Additional Drug Use History / Comment(s): patient drinks 1 NA beer per month - Past Family History Father Family Medical History: Unable to Obtain Mother Family Medical History: Unable to Obtain Additional Family Medical History / Comment(s): Patient confused Medications and Allergies Home Medications Medication Instructions Recorded Confirmed Type Metoprolol Succinate [Toprol XL] 25 mg PO DAILY@0800 04/09/14 05/02/22 History QUEtiapine [SEROquel] 50 mg PO HS@199906/03/14 05/02/22 History Bacitracin Zinc Oint 1 applic TOPICAL BID@0800,199905/02/22 05/02/22 History Cholecalciferol [Vitamin D3 (25 50 mcg PO HS@199905/02/22 05/02/22 History Mcg = 1000 Iu)] Melatonin 3 mg PO HS@199905/02/22 05/02/22 History Multivitamins, Thera [Multivitamin 1 tab PO HS@199905/02/22 05/02/22 History (formulary)] Sertraline [Zoloft] 50 mg PO HS@199905/02/22 05/02/22 History Tamsulosin [Flomax] 0.4 mg PO DAILY@1600 05/02/22 05/02/22 History amLODIPine [Norvasc] 5 mg PO DAILY@0800 05/02/22 05/02/22 History hydrALAZINE HCL [Apresoline] 25 mg PO TID@0800,1600,2000 05/02/22 05/02/22 History Allergies Allergy/AdvReac Type Severity Reaction Status Date / Time tuberculin, purified protein Allergy Unknown Verified 05/02/22 17:17 deriva [tuberculin,purif.prot.deriv.] Surgical - Exam Vital Signs Temp Pulse Resp Pulse Ox 98.0 F 68 18 98 05/02/22 15:35 05/02/22 15:35 05/02/22 15:35 05/02/22 15:35 General appearance: The patient is alert, oriented to self, appears in no acute distress. HET: Head is normocephalic and atraumatic. Pupils are equal and reactive. Neck: Supple without lymphadenopathy. Trachea midline. Right carotid bruit present. Heart: Regular. Lungs: Equal expansion, normal respiratory effort. Abdomen: Soft, nontender, nondistended. Extremities: Bilateral [id number] amputations. Neurological: Alert and oriented 1. Patient able to follow commands to some extent. Show some mild weakness in the right upper extremity, speech is fluent, patient protrudes tongue midline, there appears to be a slight right facial droop. Results - Labs 05/03/22 05:44 05/03/22 05:44 Abnormal Lab Results - Last 24 Hours (Table) 05/02/22 05/02/22 05/02/22 Range/Units 15:54 15:54 15:56 WBC (3.8-10.6) k/uL RBC 3.85 L (4.30-5.90) m/uL Hgb 12.2 L (13.0-17.5) gm/dL Hct 35.2 L (39.0-53.0) % Plt Count 96 L (150-450) k/uL Sodium 133 L (137-145) mmol/L BUN 22 H (9-20) mg/dL Creatinine (0.66-1.25) mg/dL Glucose 108 H (74-99) mg/dL POC Glucose (mg/dL) 111 H (70-110) mg/dL Calcium 8.2 L (8.4-10.2) mg/dL 05/02/22 05/03/22 05/03/22 Range/Units 20:17 05:44 05:44 WBC 12.6 H (3.8-10.6) k/uL RBC 4.01 L (4.30-5.90) m/uL Hgb 12.7 L (13.0-17.5) gm/dL Hct 37.3 L (39.0-53.0) % Plt Count 102 L (150-450) k/uL Sodium 136 L (137-145) mmol/L BUN (9-20) mg/dL Creatinine 0.62 L (0.66-1.25) mg/dL Glucose (74-99) mg/dL POC Glucose (mg/dL) 126 H (70-110) mg/dL Calcium 8.3 L (8.4-10.2) mg/dL Diabetes panel 05/02/22 05/03/22 Range/Units 15:54 05:44 Sodium 133 L 136 L (137-145) mmol/L Potassium 4.2 4.2 (3.5-5.1) mmol/L Chloride 101 105 (98-107) mmol/L Carbon Dioxide 26 24 (22-30) mmol/L BUN 22 H 14 (9-20) mg/dL Creatinine 0.70 0.62 L (0.66-1.25) mg/dL Glucose 108 H 93 (74-99) mg/dL Calcium 8.2 L 8.3 L (8.4-10.2) mg/dL AST 24 (17-59) U/L ALT 14 (4-49) U/L Alkaline Phosphatase 77 (38-126) U/L Total Protein 6.4 (6.3-8.2) g/dL Albumin 3.6 (3.5-5.0) g/dL Calcium panel 05/02/22 05/03/22 Range/Units 15:54 05:44 Calcium 8.2 L 8.3 L (8.4-10.2) mg/dL Albumin 3.6 (3.5-5.0) g/dL Pituitary panel 05/02/22 05/03/22 Range/Units 15:54 05:44 Sodium 133 L 136 L (137-145) mmol/L Potassium 4.2 4.2 (3.5-5.1) mmol/L Chloride 101 105 (98-107) mmol/L Carbon Dioxide 26 24 (22-30) mmol/L BUN 22 H 14 (9-20) mg/dL Creatinine 0.70 0.62 L (0.66-1.25) mg/dL Glucose 108 H 93 (74-99) mg/dL Calcium 8.2 L 8.3 L (8.4-10.2) mg/dL Adrenal panel 05/02/22 05/03/22 Range/Units 15:54 05:44 Sodium 133 L 136 L (137-145) mmol/L Potassium 4.2 4.2 (3.5-5.1) mmol/L Chloride 101 105 (98-107) mmol/L Carbon Dioxide 26 24 (22-30) mmol/L BUN 22 H 14 (9-20) mg/dL Creatinine 0.70 0.62 L (0.66-1.25) mg/dL Glucose 108 H 93 (74-99) mg/dL Calcium 8.2 L 8.3 L (8.4-10.2) mg/dL Total Bilirubin 0.2 (0.2-1.3) mg/dL AST 24 (17-59) U/L ALT 14 (4-49) U/L Alkaline Phosphatase 77 (38-126) U/L Total Protein 6.4 (6.3-8.2) g/dL Albumin 3.6 (3.5-5.0) g/dL Assessment and Plan Assessment: 1. Asymptomatic Right ICA stenosis, greater than 80%, left ICA stenosis 25% per CT angiogram 2. Acute ischemic stroke status post IV TPA 3. Left MCA thrombus M1/M2 junction 4. History left carotid endarterectomy 5. Large hiatal hernia 6. Developmental delay 7. History of hypertension 8. History of coronary artery disease 9. History of peripheral vascular disease status post bilateral [id number] amputations 10. Plan: 1. Continue high-dose statin recommend antiplatelet therapy when cleared by neurology 2. Continue with recommendations from neurology 3. PT/OT 4. No indication for any acute surgical intervention at this time. We will follow along. Patient will need outpatient follow-up for right ICA stenosis. Thank you for this consultation, we will continue to follow. The impression and plan of care has been dictated as directed. Dr. Jerez I performed a history and examination of this patient, discussed the same with the dictator. I agree with the dictator's note ,documented as a scribe. Any additional findings or plans will be noted.
--- NOTE | 2022-05-03 12:22 | US ---
EXAMINATION TYPE: US carotid duplex BILAT DATE OF EXAM: 05/03/2022 COMPARISON: NONE CLINICAL HISTORY: 82-year-old male Ishcemic stroke. TECHNIQUE: Carotid duplex ultrasound examination. Indirect Doppler criteria was utilized. FINDINGS: EXAM MEASUREMENTS: RIGHT: Peak Systolic Velocity (PSV) cm/sec ----- Right CCA: 81.3 ----- Right ICA: 546.3 ----- Right ECA: 290.2 ICA/CCA ratio: 6.7 RIGHT: End Diastole cm/sec ----- Right CCA: 11.5 ----- Right ICA: 188.4 ----- Right ECA: 35.9 LEFT: Peak Systolic Velocity (PSV) cm/sec ----- Left CCA: 66.3 ----- Left ICA: 181.2 ----- Left ECA: 198.5 ICA/CCA ratio: 2.7 LEFT: End Diastole cm/sec ----- Left CCA: 16.9 ----- Left ICA: 43.7 ----- Left ECA: 0.00 VERTEBRALS (direction of flow): Right Vertebral: Antegrade Left Vertebral: Antegrade CLINICAL LAW PROFESSOR NOTES: Significant stenosis visualized Right>Left carotid bulb/ICA proximal/ECA proximal. IMPRESSION: Measurements indicate a significant, severe, greater than 70% proximal right ICA stenosis and modera te (50-69%) proximal left ICA stenosis. There is extensive atherosclerotic change at both bifurcation s. Criteria for Assigning % of Stenosis / Diameter reduction (Estimation based on the indirect measurements of the internal carotid artery velocities (ICA PSV). 1. Normal (no stenosis)=ICA PSV < 125 cm/s: ratio < 2.0: ICA EDV<40 cm/s. 2. Less than 50% stenosis=ICA PSV < 125 cm/s: ratio < 2.0: ICA EDV<40 cm/s. 3. 50 to 69% stenosis=ICA PSV of 125 to 230 cm/s: ration 2.0 ? 4.0: ICA EDV 40-100 cm/s. 4. Greater than 70% stenosis to near occlusion= ICA PSV > 230 cm/s: ratio > 4.0: ICA EDV > 100 cm/s. 5. Near occlusion= ICA PSV velocities may be low or undetectable: variable ratio and ICA EDV. 6. Total occlusion=unable to detect flow.
--- NOTE | 2022-05-03 13:03 | CA ---
Transthoracic Echo Report Name: Indio Mcgee Age: 82 Gender: M : 1940 Exam Date: 05/03/2022 07:45 Exam Location: [facility] Ht (in): 40 Wt (lb): 110 Ordering Physician: Eric Martinez Attending/Referring Phys: Cork Insulator Helper Jennifer Schulz RDCS Procedure CPT: Indications: CVA; evaluate cardiac function Cardiac Hx: Technical Quality: Technically difficult study Contrast 1: Lumason Total Dose (mL): 4 Contrast 2: Total Dose (mL): MEASUREMENTS (Male / Female) Normal Values 2D ECHO LV Diastolic Diameter PLAX 3.1 cm 4.2 - 5.9 / 3.9 - 5.3 cm LV Systolic Diameter PLAX 1.7 cm IVS Diastolic Thickness 1.0 cm 0.6 - 1.0 / 0.6 - 0.9 cm LVPW Diastolic Thickness 1.3 cm 0.6 - 1.0 / 0.6 - 0.9 cm LV Relative Wall Thickness 0.7 LA Volume 80.0 cm??? 18 - 58 / 22 - 52 cm??? DOPPLER AV Peak Velocity 142.9 cm/s AV Peak Gradient 8.2 mmHg AV Mean Velocity 109.1 cm/s AV Mean Gradient 5.0 mmHg AV Velocity Time Integral 39.0 cm MV Peak Velocity 247.5 cm/s MV Peak Gradient 24.5 mmHg MV Mean Velocity 123.0 cm/s MV Mean Gradient 7.2 mmHg MV Velocity Time Integral 50.1 cm MV Area PHT 1.9 cm??? Mitral E Point Velocity 128.5 cm/s Mitral A Point Velocity 187.6 cm/s Mitral E to A Ratio 0.7 MV Deceleration Time 408.7 ms FINDINGS Left Ventricle Mildly increased left ventricular wall thickness. Normal left ventricular systolic function with no obvious regional wall motion abnormalities. Left ventricular ejection fraction is estimated at 55 %. Right Ventricle Right ventricle not well visualized. Right Atrium Right atrium not well visualized. Left Atrium Severely increased left atrial volume. Mildly increased left atrial area. Mitral Valve Mitral valve thickened. Severe mitral annular calcification. Mild mitral stenosis. Moderate mitral regurgitation. Aortic Valve Aortic valve not well visualized. No aortic regurgitation. No aortic stenosis. Tricuspid Valve Tricuspid valve not well visualized. Pulmonic Valve Pulmonic valve not well visualized. Pericardium No pericardial effusion. Aorta Aortic root and proximal ascending aorta not well visualized. CONCLUSIONS Mild increased left ventricular wall thickness Left ventricular ejection fraction 55% Severe mitral and your calcification Mild mitral stenosis Moderate mitral regurgitation No pericardial effusion Previewed by: Dr. Cortez Lawrence DO (Electronically Signed) Final Date: 03 May 2022 13:02
[2022-05-03 14:00] LABS: Chol/HDL Ratio 2.39 Ratio; LDL Cholesterol,Calculated 92.8 mg/dL (0.0-131.0)
--- NOTE | 2022-05-03 14:30 | CT ---
EXAMINATION TYPE: CT brain wo con CT DLP: 1143.4 mGycm, Automated exposure control for dose reduction was used. DATE OF EXAM: 05/03/2022 2:13 PM COMPARISON: CT head 05/02/2022, CTA head and neck 05/02/2022. CLINICAL INDICATION:Male, 82 years old with history of Neuro deficit, acute, stroke suspected, 24 [place] rs post TPA TECHNIQUE: Brain: Multiple axial CT images of the brain were obtained without IV contrast. Coronal and sagittal reformats reviewed. FINDINGS: Brain: Extra-axial spaces: No abnormal extra-axial fluid collections. Ventricular system: Dilatation in proportion to cerebral atrophy. Cerebral parenchyma: Cerebral atrophy. New focus of hyperdensity within the left temporal lobe (serie s 202, image 20). New hypodense regions with loss of carlson-white differentiation within the left parie keith lobe (series 202, image 29 and 36). The remaining carlson-white junction is well differentiated. Sca ttered hypoattenuating areas are seen within the white matter. Cerebellum: Unremarkable. Mass effect: No evidence of midline shift. Intracranial vasculature: Atherosclerotic calcifications of the intracranial vessels. Previously seen hyperdense left MCA is not well visualized on today's exam. Soft tissues: Normal. Calvarium/osseous structures: No depressed skull fracture. Paranasal sinuses and mastoid air cells: Mild scattered paranasal sinus disease. Visualized orbits: The lenses are surgically removed from the globes. IMPRESSION: 1. New focus of hyperdensity within the left upper lobe concerning for intraparenchymal hemorrhage. A ttention on follow-up. 2. New hypodense regions within the left parietal lobe concerning for acute/subacute ischemia. 3. Previously seen hyperdense left MCA is not well-visualized on today's exam. 4. Nonspecific white matter changes likely due to chronic microangiopathy. Findings called to and discussed with the patient's nurse Med at 2:27 PM on 05/03/2022.
--- NOTE | 2022-05-03 15:08 | P.PN ---
Subjective Progress Note Date: 05/03/22 Patient seen and examined at bedside. Instructor Industrial Design was in the room due to patient's learning disability. Patient was up and awake and answering questions appropriately. Patient denies chest pain shortness of breath nausea vomiting fevers or chills. further denies focal neurological deficits dizziness lightheadedness pain or numbness. Patient was given TPA as a result he is in the ICU for further monitoring. Repeat CT of the head did reveal new focus of hyperdensity within the left upper lobe concern for intraparenchymal hemorrhage. New hypodense regions within the left parietal lobe concerning for acute subacute ischemia. Previously seen hyper dense left MCA is not well visualized on repeat CT. Objective - Vital Signs Vital signs: Vital Signs Temp 98.1 F 05/03/22 12:00 Pulse 63 05/03/22 13:00 Resp 16 05/03/22 13:00 BP 107/69 05/03/22 13:00 Pulse Ox 98 05/03/22 13:00 FiO2 Intake & Output 05/02/22 05/03/22 05/03/22 18:59 06:59 18:59 Intake Total 900 860 Output Total 100 350 Balance 800 510 Weight 52.526 kg 50.2 kg Intake: IV 900 700 Sodium Chloride 0.9% 1, 900 700 000 ml @ 100 mls/hr IV . Q10H [facility] Rx#:[id number] Oral 160 Output: Urine 100 350 Other: Voiding Method External Catheter External Catheter # Voids 1 1 - Exam General: [non toxic], [no distress], [appears at stated age] Derm: [warm], [dry] Head: [atraumatic], [normocephalic], [symmetric] Eyes: [EOMI], [no lid lag], [anicteric sclera] Mouth: [no lip lesion], [mucus membranes moist] Cardiovascular: [S1S2 reg], [no murmur], [positive posterior tibial pulse bilateral], Lungs: [CTA bilateral], [no rhonchi, no rales] , [no accessory muscle use] Abdominal: [soft], [ nontender to palpation], [no guarding], [no appreciable organomegaly] Ext: Bilateral AKA Neuro: [ CN II-XI grossly intact], [no focal neuro deficits] Psych: [Alert], [oriented], [appropriate affect] - Labs CBC & Chem 7: 05/03/22 05:44 05/03/22 05:44 Labs: Abnormal Lab Results - Last 24 Hours (Table) 05/02/22 05/02/22 05/02/22 Range/Units 15:54 15:54 15:56 WBC (3.8-10.6) k/uL RBC 3.85 L (4.30-5.90) m/uL Hgb 12.2 L (13.0-17.5) gm/dL Hct 35.2 L (39.0-53.0) % Plt Count 96 L (150-450) k/uL Sodium 133 L (137-145) mmol/L BUN 22 H (9-20) mg/dL Creatinine (0.66-1.25) mg/dL Glucose 108 H (74-99) mg/dL POC Glucose (mg/dL) 111 H (70-110) mg/dL Calcium 8.2 L (8.4-10.2) mg/dL HDL Cholesterol (40.00-60.00) mg/dL 05/02/22 05/03/22 05/03/22 Range/Units 20:17 05:44 05:44 WBC 12.6 H (3.8-10.6) k/uL RBC 4.01 L (4.30-5.90) m/uL Hgb 12.7 L (13.0-17.5) gm/dL Hct 37.3 L (39.0-53.0) % Plt Count 102 L (150-450) k/uL Sodium 136 L (137-145) mmol/L BUN (9-20) mg/dL Creatinine 0.62 L (0.66-1.25) mg/dL Glucose (74-99) mg/dL POC Glucose (mg/dL) 126 H (70-110) mg/dL Calcium 8.3 L (8.4-10.2) mg/dL HDL Cholesterol 75.70 H (40.00-60.00) mg/dL Assessment and Plan Assessment: 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 New hypodense regions within the left parietal lobe concerning for acute subacute ischemia. Previously seen hyperdense left MCA is not well visualized on repeat CT. -Neurology following -Continue neuro assessments -PT OT Mild leukocytosis likely reactive -Monitor CBC Thrombocytopenia -Unclear etiology -Monitor for now Chronic conditions: Hypertension, hyperlipidemia -Continue with home meds DVT prophylaxis -Bakari AKA, s/p TPA The patient is admitted with an anticipated greater than 2 midnight stay for evaluation of acute CVA CODE STATUS: Full Code Discussed with: Automotive Brake Technician Anticipated discharge date: 2-[address]: Home
[2022-05-03] MEDS: TAMSULOSIN 0.4 MG CAP.ER.24H PO SCH (17:51)
[2022-05-03] MEDS: SERTRALINE 50 MG TAB PO SCH (20:24)
[2022-05-03] MEDS: CHOLECALCIFEROL 25 MCG (1000 IU) TABLET PO SCH (20:24)
[2022-05-03] MEDS: ATORVASTATIN 80 MG TAB PO SCH (20:24)
[2022-05-03] MEDS: MELATONIN 3 MG TABLET PO SCH (20:24)
[2022-05-03] MEDS: MULTIVITAMINS, THERA 1 EACH TAB PO SCH (20:24)
[2022-05-03] MEDS: QUEtiapine 50 MG TAB PO SCH (20:24)
[2022-05-04] MEDS: SODIUM CHLORIDE 0.9% 1,000 ML IV SCH ×2 (03:01→11:07)
[2022-05-04 04:35] LABS: Glucose,Whole Blood 114 mg/dL (70-110)
--- NOTE | 2022-05-04 06:38 | CT ---
EXAMINATION TYPE: CT brain wo con DATE OF EXAM: 05/04/2022 HISTORY: brain bleed on latest CT head, recent abnormal CT. CT DLP: 1201.4 mGycm. Automated Exposure Control for Dose Reduction was Utilized. TECHNIQUE: CT scan of the head is performed without contrast. COMPARISON: CT brain from one day earlier and older studies. FINDINGS: Evhq-uy-qzpovtjy ventricular and sulcal prominence redemonstrated. Mild hypodensities in th e periventricular space again seen. There is persistent peripheral area of low attenuation left parie keith lobe posterior watershed region axial image 31 for reference with some focal hyperdense areas jessica ng the periphery. No midline shift. The globes are intact and the visualized sinuses are clear. Pa tchy cerumen in the bilateral external auditory canals is redemonstrated. IMPRESSION: There is [id number] diffuse cerebral atrophy and mild chronic small vessel ischemic change redemonstrated. There is suspected evolving acute/subacute infarct left parietal lobe display manager ior watershed region with hemorrhagic transformation similar in appearance to most recent CT.
[2022-05-04 07:03] LABS: Basophils % (A) 0 %; Eosinophils # (A) 0.1 k/uL (0-0.7); Eosinophils % (A) 1 %; HCT 35.6 % (39.0-53.0); HGB 12.1 gm/dL (13.0-17.5); Lymphocytes # (A) 2.4 k/uL (1.0-4.8); Lymphocytes % (A) 21 %; MCH 31.4 pg (25.0-35.0); MCHC 33.8 g/dL (31.0-37.0); MCV 92.8 fL (80.0-100.0); Mean Platelet Volume 11.8; Monocytes # (A) 0.3 k/uL (0-1.0); Monocytes % (A) 3 %; Neutrophils # (A) 8.5 k/uL (1.3-7.7); Neutrophils % (A) 74 %; RBC 3.84 m/uL (4.30-5.90); RDW 12.9 % (11.5-15.5); WBC 11.5 k/uL (3.8-10.6)
[2022-05-04 07:09] LABS: African American GFR (CKD) >90 (>60 ml/min/1.73 sqM); Anion Gap 5 mmol/L; Blood Urea Nitrogen 17 mg/dL (9-20); Calcium 8.3 mg/dL (8.4-10.2); Carbon Dioxide 26 mmol/L (22-30); Chloride 104 mmol/L (98-107); Glucose 116 mg/dL (74-99); Non-African American GFR(CKD) 87 (>60 ml/min/1.73 sqM); Sodium 135 mmol/L (137-145)
--- NOTE | 2022-05-04 07:11 | P.PN ---
Subjective Progress Note Date: 05/04/22 82-year-old male patient, with multiple medical problems and comorbidities. The patient is quite debilitated and the patient has developmental delay in addition to severe peripheral vascular disease and the patient has undergone previous AKA in addition to that the patient has COPD and hypertension and seizure disorder. The patient was brought to the emergency department by his oil changer due to concerns of stroke. At that time, the patient was confused. The patient apparently was taking a nap at around 12:30 PM and he woke up at around 2 PM and he was noted to be confused and that has been some right facial droop also. Based on that, he came into the emergency. CAT scan of the brain was done in the form of CT angiogram and the patient had an acute large vessel occlusion involving the left MCA. The neuro investment representative recommended TPA. This was administered in the emergency department and the patient following that was transferred to the intensive care unit for further management. Note that he does have also a component of chronic thrombocytopenia. His platelet count has been 96 yesterday and 102 today. On today's evaluation, the patient has a don't was about 4.6 with a hemoglobin 12.7 and a platelet count of 102. BUN is at 14 with a creatinine of 0.6 and a sodium level is at 136. Troponins are negative. Liver function tests are essentially within normal limits. 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 On today's evaluation,the patient has some residual weakness in his right upper extremity. He also has some residual right facial droop. He is unable to communicate and is unable to provide adequate history because of an underlying developmental delay. No seizure activity has been noted. The blood pressure this morning is 124/66. No issues with hypertension overnight. On today's evaluation of 05/04/2022, the neurologically the patient is lethargic and sleepy. He is easily arousable. The left unstimulated, he would go back to sleep. Note that he had to follow-up CAT scans following the thrombolytic administration. Note that the first CAT scan was done yesterday afternoon and it showed new focus of hyperdensity within the left parietal area consistent with hemorrhagic transformation. This was in the left parietal lobe. There was also a new focus of hyperdensity within the left temporal lobe. The remaining carlson-white junction is well-differentiated. The patient does have cerebral atrophy. A subsequent CAT scan of the brain was done this morning at 6:31 AM and it showed cerebral atrophy, chronic small vessel ischemic changes and suspected evolving subacute infarct and left parietal lobe with hemorrhagic transformation similar in appearance and unchanged compared to the earlier CAT scan. The patient is post thrombolytics. No antiplatelet agents haven't provided. He is having second material and is able to tolerate them adequately based on her nursing staff. Hemodynamically stable. Blood pressure is nonelevated. No episodes of hypotension. Carotid Doppler was done and the patient was found to have more than 70% stenosis on the right and 50-70% stenosis on the left. The patient was also seen by vascular surgery. No indication for any acute surgical intervention at this point in time. Meanwhile, an echo of the heart was also done that showed preserved LV function, severe mitral calcification with mild mitral stenosis and moderate degree of regurgitation. Cardiac rhythm is sinus. On today's neurologic evaluation, there is an unchanged motor power in his right upper extremity. His active extremity is weak yet my assessment is unchanged since yesterday. He does have some ongoing facial droop on the right. No agitation. He is on oxygen at 2 L. Objective - Vital Signs Vital signs: Vital Signs Temp 99.2 F 05/04/22 04:00 Pulse 74 05/04/22 06:00 Resp 20 05/04/22 06:00 BP 107/69 05/04/22 06:00 Pulse Ox 94 L 05/04/22 06:00 FiO2 Intake & Output 05/03/22 05/03/22 05/04/22 06:59 18:59 06:59 Intake Total 900 860 700 Output Total 100 350 275 Balance 800 510 425 Weight 50.2 kg 49.5 kg Intake: IV 900 700 600 Sodium Chloride 0.9% 1, 900 700 600 000 ml @ 100 mls/hr IV . Q10H [facility] Rx#:[id number] Oral 160 100 Output: Urine 100 350 275 Other: Voiding Method External Catheter External Catheter External Catheter # Voids 1 1 - Exam General: non toxic, no distress, appears at stated age, currently on 2 L of O2 nasal cannula Derm: no unusual rashes/lesions, warm Head: atraumatic, normocephalic, symmetric Eyes: EOMI, no lid lag, anicteric sclera, pupils equal round reactive to light ENT: Nose and ears atraumatic Neck: No cervical lymphadenopathy, trachea midline, supple Mouth: no lip lesion, mucus membranes moist Cardiovascular: S1S2 reg, no murmur, positive dorsalis pedis pulse bilateral, no edema Lungs: Diminished breath on lung bases more so on the left lung base Abdominal: soft, nontender to palpation, no guarding Ext: Bilateral AKA, no gross muscle atrophy, no contractures Neuro: Neurologically, the patient is awake. He is unable to follow commands and answering questions and he is or 81. At the same time, there is an obvious facial droop on the right and a right upper extremities weaker compared to the left. I would assume the motor power in the right upper extremity is 4/5 in the motor function left side is 5 over 5. The patient has bilateral amputations and lower activities above the knee. Psych: Confused, oriented only to self, not oriented to time or place - Labs CBC & Chem 7: 05/03/22 05:44 05/03/22 05:44 Labs: Abnormal Lab Results - Last 24 Hours (Table) 05/03/22 05/04/22 Range/Units 05:44 04:34 POC Glucose (mg/dL) 114 H (70-110) mg/dL HDL Cholesterol 75.70 H (40.00-60.00) mg/dL Assessment and Plan Plan: Acute CVA post TPA administration. The patient presented with right facial droop and right approximately weakness. The patient had large vessel occlusion involving the M1/M2 junction, left MCA. Note that CVA also showed a persistent origin of the left ORTHO NURSE and hypoplastic right vertebral artery. There was also evidence of severe greater than 80% occlusion of the proximal right ICA and moderate 50% distal left ORTHO NURSE stenosis. 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 The patient received thrombolytics. There has been some interval neurologic improvement although residual right facial weakness still present. Hemodynamically stable. Neurologic functions remain unchanged. On today's evaluation slightly somnolent and sleepy. He is arousable. Limited hemorrhagic transformation of the left parietal CVA. Evolving left parietal stroke with some limited evolving hemorrhagic transformation based on a follow-up CAT scan of the brain. Severe peripheral vascular disease with bilateral above-knee amputations 80% occlusion of the right ICA, 50-70% stenosis on the left Proximal subclavian artery stenosis moderate to severe focal stenosis at the origin of the right vertebral artery Coronary artery disease COPD Left hemidiaphragmatic passes with a possibility of a large diaphragmatic hernia History of seizure disorder Developmental delay and the patient is a poor historian and unable to communicate Acid reflux Plan MRI of the brain today Keep the patient in the ICU for the next 24 hours. Neuro checks Do not use any antiplatelet agents for now May need another CAT scan of the brain within the next 24 hours to assess progression of the hemorrhagic transformation of the brain CVA involving the parietal and temporal lobe No rales for any vascular intervention Neurologic consultation appreciated Echocardiogram noted Fasting lipid profile is at 92 and the patient is currently on Lipitor Aspiration precautions We'll continue to follow
[2022-05-04 07:16] LABS: Platelet Count 94 k/uL (150-450)
[2022-05-04] MEDS: amLODIPine 5 MG TAB PO SCH (08:36)
[2022-05-04] MEDS: hydrALAZINE HCL 25 MG TAB PO SCH ×3 (08:37→21:33)
[2022-05-04] MEDS: METOPROLOL SUCCINATE (ER) 25 MG TAB.ER.24H PO SCH (08:40)
[2022-05-04] MEDS: FAMOTIDINE 20 MG/2 ML VIAL IV SCH ×2 (10:21→21:34)
--- NOTE | 2022-05-04 12:46 | MR ---
EXAMINATION TYPE: MR brain wo con DATE OF EXAM: 05/04/2022 COMPARISON: CT brain 05/04/2022 HISTORY: Right sided weakness, ischemic stroke. CONTRAST: Performed utilizing 0 mL intravenous Gadavist gadolinium contrast. TECHNIQUE: Multiplanar, multiecho imaging on a 3.0 Melisa magnet is performed through the brain. Stud y is performed within 24 hours of arrival to the hospital. The craniovertebral junction is normal. The pituitary is normal. Diffusion-weighted imaging is performed. There is increased cortical signal through the left tempora l lobe and along the insular cortex. Additional hyperintensity is within the left parietal-occipital watershed region and along the cortex of the posterior left parietal lobe. Additional punctate hyperi ntensities are within the bosch radiata on the left. Some cortical increased signal is within the an terior and mid left parietal cortex. Findings are compatible with acute ischemic changes. Diffusion images appears to correlate with the hyperintensities identified on the inversion recovery weighted sequences. The coronal radiata uptake however is not as well visualized. Ventricles and sulci are prominent for the patient age. IMPRESSIONS: 1. Acute ischemic type changes through the left temporal lobe, insular cortex, mid and distal parieta l lobe. Some abnormal diffusion signal is within the left watershed region and left bosch radiata. T hese findings can be compatible with acute ischemic changes. 2. Atrophy
--- NOTE | 2022-05-04 13:21 | P.PN ---
Subjective Progress Note Date: 05/04/22 Principal diagnosis: Ischemic stroke, bilateral carotid stenosis Patient was seen and examined today as follow-up for ischemic stroke with bilateral carotid stenosis. Patient with no acute changes through the night. No antiplatelet therapy had been started. Neurology is following closely. He did have a repeat CT of the brain done yesterday reporting a new focus of hyperdensity within the left upper lobe concerning for intraparenchymal hemorrhage. New hypodense regions within the left parietal lobe concerning for acute/subacute ischemia. Previously seen hyperdense left MCA not well seen. This morning he also had another repeat CT of the brain with suspected evolving acute/subacute infarct left parietal lobe posterior watershed region with hemorrhagic transformation some layering appearance to most recent CT. Patient scheduled for MRI that showed acute ischemic type changes through the left temporal lobe, insular cortex, mid and distal parietal lobe. Some abnormal diffusion signal is within the left watershed region and left bosch radiata. Compatible with acute ischemic changes. Atrophy. Patient underwent carotid duplex yesterday that does report 70% right ICA stenosis however is reporting 50-69% left ICA stenosis compared to reported 25% stenosis of left carotid bulb on CT angiogram. Patient is awake and alert. He is able to follow simple commands. No change in exam from yesterday. Still has some slight facial droop on the right side with some right upper extremity weakness. Objective - Vital Signs Vital signs: Vital Signs Temp 99.2 F 05/04/22 04:00 Pulse 73 05/04/22 07:00 Resp 12 05/04/22 07:00 BP 133/72 05/04/22 07:00 Pulse Ox 94 L 05/04/22 07:00 FiO2 Intake & Output 05/03/22 05/04/22 05/04/22 18:59 06:59 18:59 Intake Total 860 700 Output Total 350 275 Balance 510 425 Weight 49.5 kg Intake: IV 700 600 Sodium Chloride 0.9% 1, 700 600 000 ml @ 100 mls/hr IV . Q10H [facility] Rx#:[id number] Oral 160 100 Output: Urine 350 275 Other: Voiding Method External Catheter External Catheter # Voids 1 - Exam General appearance: The patient is alert, oriented to self, appears in no acute distress. HET: Head is normocephalic and atraumatic. Pupils are equal and reactive. Neck: Supple without lymphadenopathy. Trachea midline. Right carotid bruit present. Heart: Regular. Lungs: Equal expansion, normal respiratory effort. Abdomen: Soft, nontender, nondistended. Extremities: Bilateral otowt-vxm-xhyj amputations. Neurological: Alert and oriented 1. Patient able to follow commands to some extent. Show some mild weakness in the right upper extremity, speech is fluent, patient protrudes tongue midline, there appears to be a slight right facial droop. - Labs CBC & Chem 7: 05/04/22 06:29 05/04/22 06:29 Labs: Abnormal Lab Results - Last 24 Hours (Table) 05/03/22 05/04/22 05/04/22 Range/Units 05:44 04:34 06:29 WBC 11.5 H (3.8-10.6) k/uL RBC 3.84 L (4.30-5.90) m/uL Hgb 12.1 L (13.0-17.5) gm/dL Hct 35.6 L (39.0-53.0) % Plt Count 94 L (150-450) k/uL Neutrophils # 8.5 H (1.3-7.7) k/uL Sodium (137-145) mmol/L Glucose (74-99) mg/dL POC Glucose (mg/dL) 114 H (70-110) mg/dL Calcium (8.4-10.2) mg/dL HDL Cholesterol 75.70 H (40.00-60.00) mg/dL 05/04/22 Range/Units 06:29 WBC (3.8-10.6) k/uL RBC (4.30-5.90) m/uL Hgb (13.0-17.5) gm/dL Hct (39.0-53.0) % Plt Count (150-450) k/uL Neutrophils # (1.3-7.7) k/uL Sodium 135 L (137-145) mmol/L Glucose 116 H (74-99) mg/dL POC Glucose (mg/dL) (70-110) mg/dL Calcium 8.3 L (8.4-10.2) mg/dL HDL Cholesterol (40.00-60.00) mg/dL Assessment and Plan Assessment: 1. Asymptomatic Right ICA stenosis, greater than 80%, left ICA stenosis 50-69% per carotid duplex 2. Acute ischemic stroke status post IV TPA 3. Left MCA thrombus M1/M2 junction 4. History left carotid endarterectomy 5. Large hiatal hernia 6. Developmental delay 7. History of hypertension 8. History of coronary artery disease 9. History of peripheral vascular disease status post bilateral [id number] amputations 10. Plan: 1. Continue high-dose statin 2. Continue with recommendations from neurology 3. PT/OT 4. No indication for any acute surgical intervention at this time. Recommend outpatient follow-up for bilateral ICA stenosis. Thank you for this consultation, we will sign off at this time. The impression and plan of care has been dictated as directed. Dr. Jerez I performed a history and examination of this patient, discussed the same with the dictator. I agree with the dictator's note ,documented as a scribe. Any additional findings or plans will be noted.
--- NOTE | 2022-05-04 15:59 | P.PN ---
Subjective Progress Note Date: 05/04/22 Patient seen and examined at bedside. Patient seems a little more confused today than yesterday. Patient had trouble following commands and answering questions appropriately. Objective - Vital Signs Vital signs: Vital Signs Temp 97.9 F 05/04/22 08:00 Pulse 71 05/04/22 14:00 Resp 23 05/04/22 14:00 BP 99/73 05/04/22 13:00 Pulse Ox 98 05/04/22 14:00 FiO2 Intake & Output 05/03/22 05/04/22 05/04/22 18:59 06:59 18:59 Intake Total 860 700 850 Output Total 350 275 50 Balance 510 425 800 Weight 49.5 kg Intake: IV 700 600 800 Sodium Chloride 0.9% 1, 700 600 800 000 ml @ 100 mls/hr IV . Q10H [facility] Rx#:[id number] Oral 160 100 50 Output: Urine 350 275 50 Other: Voiding Method External Catheter External Catheter External Catheter # Voids 1 - Exam General: [non toxic], [no distress], [appears at stated age] Derm: [warm], [dry] Head: [atraumatic], [normocephalic], [symmetric] Eyes: [EOMI], [no lid lag], [anicteric sclera] Mouth: [no lip lesion], [mucus membranes moist] Cardiovascular: [S1S2 reg], [no murmur], [positive posterior tibial pulse bilateral], Lungs: [CTA bilateral], [no rhonchi, no rales] , [no accessory muscle use] Abdominal: [soft], [ nontender to palpation], [no guarding], [no appreciable organomegaly] Ext: Bilateral [id number] amputee Neuro: [ CN II-XI grossly intact], [no focal neuro deficits] Psych: [Alert confused - Labs CBC & Chem 7: 05/04/22 06:29 05/04/22 06:29 Labs: Abnormal Lab Results - Last 24 Hours (Table) 05/04/22 05/04/22 05/04/22 Range/Units 04:34 06:29 06:29 WBC 11.5 H (3.8-10.6) k/uL RBC 3.84 L (4.30-5.90) m/uL Hgb 12.1 L (13.0-17.5) gm/dL Hct 35.6 L (39.0-53.0) % Plt Count 94 L (150-450) k/uL Neutrophils # 8.5 H (1.3-7.7) k/uL Sodium 135 L (137-145) mmol/L Glucose 116 H (74-99) mg/dL POC Glucose (mg/dL) 114 H (70-110) mg/dL Calcium 8.3 L (8.4-10.2) mg/dL Assessment and Plan Assessment: 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 Some abnormal diffusion signal is within the left watershed region and left bosch radiata. These findings can be compatible with acute ischemic changes. Atrophy noted. -Repeat CT of the brain did reveals new focus of hyperdensity within the left upper lobe concern for intraparenchymal hemorrhage. New hypodense regions within the left parietal lobe concerning for acute subacute ischemia. Previously seen hyperdense left MCA is not well visualized on repeat CT. -Neurology following -Continue neuro assessments -PT OT Mild leukocytosis likely reactive -Monitor CBC -Currently trending down Thrombocytopenia -Unclear etiology -Monitor for now Chronic conditions: Hypertension, hyperlipidemia -Continue with home meds DVT prophylaxis -Bakari AKA, s/p TPA The patient is admitted with an anticipated greater than 2 midnight stay for evaluation of acute CVA CODE STATUS: Full Code Discussed with: Exterminator Anticipated discharge date: 2-[address]: Home
--- NOTE | 2022-05-04 16:17 | P.PN ---
Subjective Progress Note Date: 05/04/22 The patient is seen at bedside and per nurse he continues to have speech findings difficulties. Objective - Vital Signs Vital signs: Vital Signs Temp 97.9 F 05/04/22 08:00 Pulse 71 05/04/22 14:00 Resp 23 05/04/22 14:00 BP 99/73 05/04/22 13:00 Pulse Ox 98 05/04/22 14:00 FiO2 Intake & Output 05/03/22 05/04/22 05/04/22 18:59 06:59 18:59 Intake Total 860 700 850 Output Total 350 275 50 Balance 510 425 800 Weight 49.5 kg Intake: IV 700 600 800 Sodium Chloride 0.9% 1, 700 600 800 000 ml @ 100 mls/hr IV . Q10H [facility] Rx#:[id number] Oral 160 100 50 Output: Urine 350 275 50 Other: Voiding Method External Catheter External Catheter External Catheter # Voids 1 - Exam GENERAL: The patient is lying in bed and is not in acute distress. NEUROLOGICAL: Somewhat limited because of his cooperation. Higher mental function: The patient is awake, alert, oriented to self. He could not tell me the month and year or place and with options he would yes to all options. Patient appears to have expressive aphasia. Patient is following simple commands. No neglect. Cranial nerves: The pupils are round, equal and reactive to light. Visual monteiro is a bit limited since was looking at finger and not nose while examining him but appear full throughout. Extraocular movement is intact no nystagmus is noted. Facial sensation is normal to touch throughout. The facial strength is mild right lower facial weakness. Tongue is midline and moved [id number] without any difficulty. No dysarthria is noted. Shoulder shrug is normal bilaterally. Motor: The strength is somewhat limited because of cooperation but no pronator drift in uppers and appears equal. 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 Has above knee amputation and able to raise proximally bilaterally. Normal tone and bulk. Cerebellum: Normal finger to nose bilaterally. Sensation: Sensation is normal to touch throughout. Reflexes (right/left): 1+ throughout. Plantars: Has above knee amputation bilaterally. Some of the workup during this hospital visit consisted of: Lipid panel: It is reported as triglycerides 62, cholesterol 181, LDL of [address] of the head is reported as hyperdense M1 segment left MCA knee from 2014. Acute left MCA thrombus not excluded. No acute intracranial hemorrhage, mass effect or midline shift is seen. Mild ventriculomegaly is unchanged and may be partly related to central cerebral atrophy. I personally reviewed the CT of the head and I agree of the report. CT angiography of the head is reported as acute large vessel occlusion at the M1 and M2 junction of the left MCA. One of the M2 branches vessel remains opacified. Persistent origin of the left OUTDOOR [employer]SUITS INSTRUCTOR. Hypoplastic right vertebral artery. CT angiography of the neck is reported as severe greater than 80% proximal right ICA stenosis. Moderate approximate 50% distal left common carotid stenosis. Moderate office carotid narrowing proximal right subclavian artery. 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 Note a very large hiatal hernia. On the left this occupies the left and mid and lower lung. On the right at least the entire lower lung is occupied. Carotid duplex is reported as measurements indicate significant severe greater than 70% proximal right ICA stenosis and moderate 50-69 proximal left ICA stenosis. There is extensive atherosclerotic changes in both bifurcation. Repeat CT had 24 hour post-TPA on 05/03/2022: Is reported as new focus of hyperd ensity within the left upper lobe concerning for intraparenchymal hemorrhage. Attention on follow-up. Hypotensive region in the left parietal lobe concerning for acute/subacute ischemia. Previously seen hyperdense left MCA is not well visualized on today's exam. Nonspecific white matter changes likely due to a chronic microangiopathy. I personally reviewed the CT head and I do agree about the hypodensity over the left parietal lobe concerning for stroke acute the subacute regarding the bleed it's such a small minimal focus. Repeat CT of the head on 05/04/2022 is reported as there is mild to moderate diffuse cerebral atrophy and mild chronic small vessel ischemic changes redemonstrated. They're suspected evolving acute subacute infarct over left parietal lobe posterior watershed region with hemorrhagic transformation similar appearance to most recent CT. I personally reviewed the CT and I agree with the reports again the bleed is not significant and is a very small focus MRI brain is reported as acute ischemic type changes throughout the left temporal insular cortex and mid and distal parietal lobe. Some abnormal diffusion the signal in the left watershed region and left bosch radiata. These findings can be compatible with acute ischemic changes. Atrophy EKG is reported as sinus rhythm. Right bundle branch block, anterior myocardial infarction of indeterminate age. Abnormal EKG. 2-D echo was reported as mild increased left ventricular wall thickness. Left ventricular ejection fraction of 55. Severe mitral calcification. Moderate mitral regurgitation. - Labs CBC & Chem 7: 05/04/22 06:29 05/04/22 06:29 Labs: Abnormal Lab Results - Last 24 Hours (Table) 05/04/22 05/04/22 05/04/22 Range/Units 04:34 06:29 06:29 WBC 11.5 H (3.8-10.6) k/uL RBC 3.84 L (4.30-5.90) m/uL Hgb 12.1 L (13.0-17.5) gm/dL Hct 35.6 L (39.0-53.0) % Plt Count 94 L (150-450) k/uL Neutrophils # 8.5 H (1.3-7.7) k/uL Sodium 135 L (137-145) mmol/L Glucose 116 H (74-99) mg/dL POC Glucose (mg/dL) 114 H (70-110) mg/dL Calcium 8.3 L (8.4-10.2) mg/dL Assessment and Plan Assessment: Acute ischemic stroke post IV TPA with small focus of hemorrhagic transformation (very small bleed). Presented with right sided weakness, facial weakness, speech difficulty and dysarthria with NIH 12 on presentation. Currently symptoms improving but continues to have right facial droop and expressive aphasia. MRI Brain is left temporal/parietal and watershed over the left insular. Stroke appear embolic. Possibly has artery to artery (on carotid has 50-69% stenosis on Left ICA). Rule out cardioembolic Left MCA thrombus (M1/M2 junction). Stroke seems embolic. Asymptomatic right ICA stenosis Left ICA stenosis about 50% on CTA but on duplex is 50-69% stenosis Large hiatal hernia History of left carotid endarterectomy Developmental delay History of seizure and the last seizure per medical record stopped medications in 2013 Amputation above both knees due to peripheral vascular disease, Coronary artery disease Bipolar Plan: Patient does not need any reversible factor for bleed since it is such a small/minimal focus and stable on repeat CT head. I will start patient on ASA 81mg daily starting and not dual antiplatelets because of increased risk for bleed. I'll get a repeat CT of the head for tomorrow to make sure the bleed is not any better and if it still stable no fu rther imaging of the brain if the patient is clean exam does not deteriorate. Continue Lipitor 80 mg daily at bedtime for secondary stroke prophylaxis and as well as help stabilize the plaque. Vascular surgery team is consulted for the carotid stenosis. Also he has Moderate carotid narrowing proximal right subclavian artery. 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 Vascular surgery team did not feel like the patient is a surgical candidate and rec ommended outpatient follow-up. PT OT and POLICY ADVISOR are consulted Continue neuro checks Continue cardiac monitoring We'll defer the rest of the medical measure the primary team For DVT prophylaxis with the patient on subcu heparin 5000 units every 8 hours. The plan was discussed with the patient and his nurse. Time with Patient: Less than 30
[2022-05-04] MEDS: ASPIRIN 81 MG PO SCH (17:45)
[2022-05-04] MEDS: HEPARIN SODIUM,PORCINE/PF 5,000 UNIT/0.5 ML SYRINGE SQ SCH (17:45)
[2022-05-04] MEDS: TAMSULOSIN 0.4 MG CAP.ER.24H PO SCH (17:46)
[2022-05-04] MEDS: CHOLECALCIFEROL 25 MCG (1000 IU) TABLET PO SCH (21:33)
[2022-05-04] MEDS: MULTIVITAMINS, THERA 1 EACH TAB PO SCH (21:33)
[2022-05-04] MEDS: MELATONIN 3 MG TABLET PO SCH (21:33)
[2022-05-04] MEDS: ATORVASTATIN 80 MG TAB PO SCH (21:33)
[2022-05-04] MEDS: SERTRALINE 50 MG TAB PO SCH (21:34)
[2022-05-04] MEDS: QUEtiapine 50 MG TAB PO SCH (21:34)
[2022-05-05] MEDS: SODIUM CHLORIDE 0.9% 1,000 ML IV SCH ×3 (00:57→18:58)
[2022-05-05] MEDS: HEPARIN SODIUM,PORCINE/PF 5,000 UNIT/0.5 ML SYRINGE SQ SCH ×3 (00:57→16:08)
[2022-05-05] MEDS: amLODIPine 5 MG TAB PO SCH (08:38)
[2022-05-05] MEDS: METOPROLOL SUCCINATE (ER) 25 MG TAB.ER.24H PO SCH (08:38)
--- NOTE | 2022-05-05 08:58 | CT ---
EXAMINATION TYPE: CT brain wo con DATE OF EXAM: 05/05/2022 HISTORY: Assess size of bleed. CT DLP: 1094.1 mGycm. Automated Exposure Control for Dose Reduction was Utilized. TECHNIQUE: CT scan of the head is performed without contrast. COMPARISON: CT and MRI brain 1 day earlier and older studies. FINDINGS: Eizk-rp-[id number] ventricular and sulcal prominence redemonstrated. Mild hypodensities in the periventricular space are again seen. Area of hypodensity near the parietotemporal junction axial image 24 is redemonstrated. No significant hyperdense component currently. Better visualized hypoden sity involving the left temporal lobe anteriorly superiorly sagittal image 40 on current study corres ponding to area of restricted diffusion on MRI. Tiny hyperdense focus in the left temporal lobe axial image 21 remains present. No midline shift. The globes are intact and the visualized sinuses are cl ear. Cerumen in the bilateral external auditory canals is redemonstrated. IMPRESSION: There is cuer-on-[id number] diffuse age-related cerebral atrophy and mild chronic small ves johanna ischemic change redemonstrated. Evolving left-sided acute infarction in the MCA distribution aga in seen and better appreciated on recent MRI. No new or increasing acute hemorrhagic transformation.
[2022-05-05] MEDS: ASPIRIN 81 MG PO SCH (09:01)
[2022-05-05] MEDS: FAMOTIDINE 20 MG/2 ML VIAL IV SCH ×2 (09:01→20:08)
[2022-05-05] MEDS: hydrALAZINE HCL 25 MG TAB PO SCH ×3 (09:02→20:03)
[2022-05-05 11:38] LABS: African American GFR (CKD) 102.6 (60.0-200.0); Anion Gap 8.7 mmol/L (10.00-18.00); BUN/Creat Ratio 21.57 Ratio (12.00-20.00); Blood Urea Nitrogen 15.1 mg/dL (9.0-27.0); Calcium 8.2 mg/dL (8.7-10.3); Carbon Dioxide 22.3 mmol/L (20.0-27.5); Non-African American GFR(CKD) 88.5 (60.0-200.0); Potassium 3.7 mmol/L (3.5-5.5)
--- NOTE | 2022-05-05 14:00 | P.PN ---
Subjective Progress Note Date: 05/05/22 Patient seen and examined at bedside. Patient is acting more appropriately today. Patient is following commands as directed. Patient denies chest pain shortness of breath. He was coloring his coloring book today. Objective - Vital Signs Vital signs: Vital Signs Temp 97.4 F L 05/05/22 12:37 Pulse 61 05/05/22 12:37 Resp 18 05/05/22 12:37 BP 116/61 05/05/22 12:37 Pulse Ox 99 05/05/22 12:37 FiO2 Intake & Output 05/04/22 05/05/22 05/05/22 18:59 06:59 18:59 Intake Total 1550 1300 180 Output Total 100 50 650 Balance 1450 1250 -470 Intake: IV 900 1100 Sodium Chloride 0.9% 1, 900 1100 000 ml @ 100 mls/hr IV . Q10H [facility] Rx#:[id number] Oral 650 200 180 Output: Urine 100 50 650 Other: Voiding Method External Catheter External Catheter External Catheter # Voids 1 - Exam General: [non toxic], [no distress], [appears at stated age] Derm: [warm], [dry] Head: [atraumatic], [normocephalic], [symmetric] Eyes: [EOMI], [no lid lag], [anicteric sclera] Mouth: [no lip lesion], [mucus membranes moist] Cardiovascular: [S1S2 reg], [no murmur], [positive posterior tibial pulse bilateral], Lungs: [CTA bilateral], [no rhonchi, no rales] , [no accessory muscle use] Abdominal: [soft], [ nontender to palpation], [no guarding], [no appreciable organomegaly] Ext: [no gross muscle atrophy], [no edema], [no contractures] Neuro: [ CN II-XI grossly intact], [no focal neuro deficits] Psych: [Alert], [oriented to person and place developmental delay - Labs CBC & Chem 7: 05/04/22 06:29 05/05/22 07:08 Labs: Abnormal Lab Results - Last 24 Hours (Table) 05/05/22 Range/Units 07:08 Anion Gap 8.70 L (10.00-18.00) mmol/L BUN/Creatinine Ratio 21.57 H (12.00-20.00) Ratio Calcium 8.2 L (8.7-10.3) mg/dL Assessment and Plan Assessment: 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 Some abnormal diffusion signal is within the left watershed region and left bosch radiata. These findings can be compatible with acute ischemic changes. Atrophy noted. -Repeat CT of the brain did reveals new focus of hyperdensity within the left upper lobe concern for intraparenchymal hemorrhage. New hypodense regions within the left parietal lobe concerning for acute subacute ischemia. Previously seen hyperdense left MCA is not well visualized on repeat CT. -Neurology following patient has been started on aspirin 81 mg daily by neurology continue to monitor closely -Continue neuro assessments -PT OT Carotid artery stenosis with Moderate carotid narrowing proximal right subclavian artery. 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 Vascular surgery feels that patient is not a surgical candidate and recommended outpatient follow-up. Mild leukocytosis likely reactive -Monitor CBC -Currently trending down Thrombocytopenia -Unclear etiology -Monitor for now Chronic conditions: Hypertension, hyperlipidemia -Continue with home meds DVT prophylaxis -Bakari AKA, s/p TPA The patient is admitted with an anticipated greater than 2 midnight stay for evaluation of acute CVA CODE STATUS: Do Not Resuscitate Discussed with: Supervisor Intelligence Analyst Anticipated discharge date: 2-[address]: Home
--- NOTE | 2022-05-05 14:07 | P.PN ---
Subjective Progress Note Date: 05/05/22 82-year-old male patient, with multiple medical problems and comorbidities. The patient is quite debilitated and the patient has developmental delay in addition to severe peripheral vascular disease and the patient has undergone previous AKA in addition to that the patient has COPD and hypertension and seizure disorder. The patient was brought to the emergency department by his culinary assistant due to concerns of stroke. At that time, the patient was confused. The patient apparently was taking a nap at around 12:30 PM and he woke up at around 2 PM and he was noted to be confused and that has been some right facial droop also. Based on that, he came into the emergency. CAT scan of the brain was done in the form of CT angiogram and the patient had an acute large vessel occlusion involving the left MCA. The neuro waste reclaimer recommended TPA. This was administered in the emergency department and the patient following that was transferred to the intensive care unit for further management. Note that he does have also a component of chronic thrombocytopenia. His platelet count has been 96 yesterday and 102 today. On today's evaluation, the patient has a don't was about 4.6 with a hemoglobin 12.7 and a platelet count of 102. BUN is at 14 with a creatinine of 0.6 and a sodium level is at 136. Troponins are negative. Liver function tests are essentially within normal limits. 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 On today's evaluation,the patient has some residual weakness in his right upper extremity. He also has some residual right facial droop. He is unable to communicate and is unable to provide adequate history because of an underlying developmental delay. No seizure activity has been noted. The blood pressure this morning is 124/66. No issues with hypertension overnight. On today's evaluation of 05/04/2022, the neurologically the patient is lethargic and sleepy. He is easily arousable. The left unstimulated, he would go back to sleep. Note that he had to follow-up CAT scans following the thrombolytic administration. Note that the first CAT scan was done yesterday afternoon and it showed new focus of hyperdensity within the left parietal area consistent with hemorrhagic transformation. This was in the left parietal lobe. There was also a new focus of hyperdensity within the left temporal lobe. The remaining carlson-white junction is well-differentiated. The patient does have cerebral atrophy. A subsequent CAT scan of the brain was done this morning at 6:31 AM and it showed cerebral atrophy, chronic small vessel ischemic changes and suspected evolving subacute infarct and left parietal lobe with hemorrhagic transformation similar in appearance and unchanged compared to the earlier CAT scan. The patient is post thrombolytics. No antiplatelet agents haven't provided. He is having second material and is able to tolerate them adequately based on her nursing staff. Hemodynamically stable. Blood pressure is nonelevated. No episodes of hypotension. Carotid Doppler was done and the patient was found to have more than 70% stenosis on the right and 50-70% stenosis on the left. The patient was also seen by vascular surgery. No indication for any acute surgical intervention at this point in time. Meanwhile, an echo of the heart was also done that showed preserved LV function, severe mitral calcification with mild mitral stenosis and moderate degree of regurgitation. Cardiac rhythm is sinus. On today's neurologic evaluation, there is an unchanged motor power in his right upper extremity. His active extremity is weak yet my assessment is unchanged since yesterday. He does have some ongoing facial droop on the right. No agitation. He is on oxygen at 2 L. 1 2022, the patient is also the intensive care unit. No active pulmonary or critical care issues for now. The patient is hemodynamically stable. The patient underwent an MRI of the brain and the patient was found to have an acute ischemic Stroke involving the left temporal lobe, is alert and mild to distal parietal lobes. The patient currently is on aspirin. Hemodynamically stable. Electrolytes are all within normal limits. Objective - Vital Signs Vital signs: Vital Signs Temp 97.4 F L 05/05/22 12:37 Pulse 61 05/05/22 12:37 Resp 18 05/05/22 12:37 BP 116/61 05/05/22 12:37 Pulse Ox 99 05/05/22 12:37 FiO2 Intake & Output 05/04/22 05/05/22 05/05/22 18:59 06:59 18:59 Intake Total 1550 1300 180 Output Total 100 50 650 Balance 1450 1250 -470 Intake: IV 900 1100 Sodium Chloride 0.9% 1, 900 1100 000 ml @ 100 mls/hr IV . Q10H [facility] Rx#:[id number] Oral 650 200 180 Output: Urine 100 50 650 Other: Voiding Method External Catheter External Catheter External Catheter # Voids 1 - Exam General: non toxic, no distress, appears at stated age, currently on 2 L of O2 nasal cannula Derm: no unusual rashes/lesions, warm Head: atraumatic, normocephalic, symmetric Eyes: EOMI, no lid lag, anicteric sclera, pupils equal round reactive to light ENT: Nose and ears atraumatic Neck: No cervical lymphadenopathy, trachea midline, supple Mouth: no lip lesion, mucus membranes moist Cardiovascular: S1S2 reg, no murmur, positive dorsalis pedis pulse bilateral, no edema Lungs: Diminished breath on lung bases more so on the left lung base Abdominal: soft, nontender to palpation, no guarding Ext: Bilateral AKA, no gross muscle atrophy, no contractures Neuro: Neurologically, the patient is awake. He is unable to follow commands and answering questions and he is or 80. At the same time, there is an obvious facial droop on the right and a right upper extremities weaker compared to the left. I would assume the motor power in the right upper extremity is 4/5 in the motor function left side is 5 over 5. The patient has bilateral amputations and lower activities above the knee. Psych: Confused, oriented only to self, not oriented to time or place - Labs CBC & Chem 7: 05/04/22 06:29 05/05/22 07:08 Labs: Abnormal Lab Results - Last 24 Hours (Table) 05/05/22 Range/Units 07:08 Anion Gap 8.70 L (10.00-18.00) mmol/L BUN/Creatinine Ratio 21.57 H (12.00-20.00) Ratio Calcium 8.2 L (8.7-10.3) mg/dL Assessment and Plan Plan: Acute CVA post TPA administration. The patient presented with right facial droop and right approximately weakness. The patient had large vessel occlusion involving the M1/M2 junction, left MCA. Note that CVA also showed a persistent origin of the left G[employer] LINE [employer] and hypoplastic right vertebral artery. There was also evidence of severe greater than 80% occlusion of the proximal right ICA and moderate 50% distal left G[employer] LINE [employer]TER stenosis. 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 The patient received thrombolytics. There has been some interval neurologic improvement although residual right facial weakness still present. Hemodynamically stable. Neurologic functions remain unchanged. On today's evaluation slightly somnolent and sleepy. He is arousable. MRI of the brain was noted Evolving left parietal stroke with some limited evolving hemorrhagic transformation based on a follow-up CAT scan of the brain. Severe peripheral vascular disease with bilateral above-knee amputations 80% occlusion of the right ICA, 50-70% stenosis on the left Proximal subclavian artery stenosis moderate to severe focal stenosis at the origin of the right vertebral artery Coronary artery disease COPD Left hemidiaphragmatic passes with a possibility of a large diaphragmatic hernia History of seizure disorder Developmental delay and the patient is a poor historian and unable to communicate Acid reflux Plan Neurologically stable MRI of the brain was noted Patient is also the intensive care unit Aspirate was started Neurologic consultation appreciated Echocardiogram noted Fasting lipid profile is at 92 and the patient is currently on Lipitor Aspiration precautions We will going to sign off the case and leave the rest of the management of the medicine.
[2022-05-05 14:35] LABS: HCT 32.6 % (39.6-50.0); HGB 10.6 g/dL (13.0-17.0); MCH 30.9 pg (27.0-32.0); MCHC 32.5 g/dL (32.0-37.0); Mean Platelet Volume 13.5 fL (9.5-12.2); NRBC Per 100 WBC 0 /100 WBCS (0.0-0.0); Platelet Count 85 X 10*3/uL (140-440); RBC 3.43 X 10*6/uL (4.40-5.60); RDW 12.6 % (11.5-14.5)
[2022-05-05 14:36] LABS: Basophils # (M) 0 X 10*3/uL (0.00-0.10); Neutrophils % (M) 34 %
--- NOTE | 2022-05-05 14:42 | P.PN ---
Subjective Progress Note Date: 05/05/22 The patient is seen at bedside and is about the same. Objective - Vital Signs Vital signs: Vital Signs Temp 97.4 F L 05/05/22 12:37 Pulse 61 05/05/22 12:37 Resp 18 05/05/22 12:37 BP 116/61 05/05/22 12:37 Pulse Ox 99 05/05/22 12:37 FiO2 Intake & Output 05/04/22 05/05/22 05/05/22 18:59 06:59 18:59 Intake Total 1550 1300 180 Output Total 100 50 650 Balance 1450 1250 -470 Intake: IV 900 1100 Sodium Chloride 0.9% 1, 900 1100 000 ml @ 100 mls/hr IV . Q10H AGUSTIN Rx#:[id number] Oral 650 200 180 Output: Urine 100 50 650 Other: Voiding Method External Catheter External Catheter External Catheter # Voids 1 - Exam GENERAL: The patient is lying in bed and is not in acute distress. NEUROLOGICAL: Limited since patient was sleeping. Mild right facial weakness. Some of the workup during this hospital visit consisted of: Lipid panel: It is reported as triglycerides 62, cholesterol 181, LDL of [address] of the head is reported as hyperdense M1 segment left MCA knee from 2015. Acute left MCA thrombus not excluded. No acute intracranial hemorrhage, mass effect or midline shift is seen. Mild ventriculomegaly is unchanged and may be partly related to central cerebral atrophy. I personally reviewed the CT of the head and I agree of the report. CT angiography of the head is reported as acute large vessel occlusion at the M1 and M2 junction of the left MCA. One of the M2 branches vessel remains opacified. Persistent origin of the left HUMAN RESOURCES VICE PRESIDENT. Hypoplastic right vertebral artery. CT angiography of the neck is reported as severe greater than 80% proximal right ICA stenosis. Moderate approximate 50% distal left common carotid stenosis. Moderate office carotid narrowing proximal right subclavian artery. 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 Note a very large hiatal hernia. On the left this occupies the left and mid and lower lung. On the right at least the entire lower lung is occupied. Carotid duplex is reported as measurements indicate significant severe greater than 70% proximal right ICA stenosis and moderate 50-69 proximal left ICA stenosis. There is extensive atherosclerotic changes in both bifurcation. Repeat CT had 24 hour post-TPA on 05/03/2022: Is reported as new focus of hyper density within the left upper lobe concerning for intraparenchymal hemorrhage. Attention on follow-up. Hypotensive region in the left parietal lobe concerning for acute/subacute ischemia. Previously seen hyperdense left MCA is not well visualized on today's exam. Nonspecific white matter changes likely due to a chronic microangiopathy. I personally reviewed the CT head and I do agree about the hypodensity over the left parietal lobe concerning for stroke acute the subacute regarding the bleed it's such a small minimal focus. Repeat CT of the head on 05/04/2022 is reported as there is mild to moderate diffuse cerebral atrophy and mild chronic small vessel ischemic changes redemonstrated. They're suspected evolving acute subacute infarct over left parietal lobe posterior watershed region with hemorrhagic transformation similar appearance to most recent CT. I personally reviewed the CT and I agree with the reports again the bleed is not significant and is a very small focus MRI brain is reported as acute ischemic type changes throughout the left temporal insular cortex and mid and distal parietal lobe. Some abnormal diffusion the signal in the left watershed region and left bosch radiata. These findings can be compatible with acute ischemic changes. Atrophy CT of the head is reported as there is mild to moderate diffuse age-related cerebral atrophy and mild chronic small vessel ischemic changes redemonstrated. Evolving left-sided acute infarction in the MCA distribution again seen and better appreciated on the recent MRI. No new or increased acute hemorrhagic transformation. EKG is reported as sinus rhythm. Right bundle branch block, anterior myocardial infarction of indeterminate age. Abnormal EKG. 2-D echo was reported as mild increased left ventricular wall thickness. Left ventricular ejection fraction of 55. Severe mitral calcification. Moderate mitral regurgitation. - Labs CBC & Chem 7: 05/05/22 07:08 05/05/22 07:08 Labs: Abnormal Lab Results - Last 24 Hours (Table) 05/05/22 05/05/22 Range/Units 07:08 07:08 RBC 3.43 L (4.40-5.60) X 10*6/uL Hgb 10.6 L (13.0-17.0) g/dL Hct 32.6 L (39.6-50.0) % Plt Count 85 L (140-440) X 10*3/uL Plt Count Comment DECREASED A MPV 13.5 H (9.5-12.2) fL Lymphocytes # (Manual) 5.90 H (0.90-5.00) X 10*3/uL Anion Gap 8.70 L (10.00-18.00) mmol/L BUN/Creatinine Ratio 21.57 H (12.00-20.00) Ratio Calcium 8.2 L (8.7-10.3) mg/dL Assessment and Plan Assessment: Acute ischemic stroke post IV TPA with small focus of hemorrhagic transfor mation (very small bleed). Presented with right sided weakness, facial weakness, speech difficulty and dysarthria with NIH 12 on presentation. Currently symptoms improving but continues to have right facial droop and expressive aphasia. MRI Brain is left temporal/parietal and watershed over the left insular. Stroke appear embolic. Possibly has artery to artery (on carotid has 50-69% stenosis on Left ICA). Rule out cardioembolic Left MCA thrombus (M1/M2 junction). Stroke seems embolic. Asymptomatic right ICA stenosis Left ICA stenosis about 50% on CTA but on duplex is 50-69% stenosis Large hiatal hernia History of left carotid endarterectomy Developmental delay History of seizure and the last seizure per medical record stopped medications in 2014 Amputation above both knees due to peripheral vascular disease, Coronary artery disease Bipolar Plan: Patient does not need any reversible factor for bleed since it is such a small/minimal focus and stable on repeat CT head and not evolving. Continue ASA 81mg daily starting and not dual antiplatelets because of increased risk for bleed. Continue Lipitor 80 mg daily at bedtime for secondary stroke prophylaxis and as well as help stabilize the plaque. Vascular surgery team is consulted for the carotid stenosis. Also he has Moderate carotid narrowing proximal right subclavian artery. 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 Vascular surgery team did not feel like the patient is a surgical candidate and recommended outpatient follow-up. PT OT and AUTOMOBILE APPRAISER are consulted Continue neuro checks Continue cardiac monitoring We'll defer the rest of the medical measure the primary team For DVT prophylaxis On subcu heparin 5000 units every 8 hours. Upon discharge the patient needs to follow-up with a neurologist within 1-2 weeks. The plan was discussed with the patient's primary team. No further neurological work-up. He is clear for discharge from neurological perspective. Time with Patient: Less than 30
[2022-05-05] MEDS: TAMSULOSIN 0.4 MG CAP.ER.24H PO SCH (16:08)
[2022-05-05] MEDS: MELATONIN 3 MG TABLET PO SCH (20:08)
[2022-05-05] MEDS: ATORVASTATIN 80 MG TAB PO SCH (20:08)
[2022-05-05] MEDS: MULTIVITAMINS, THERA 1 EACH TAB PO SCH (20:08)
[2022-05-05] MEDS: QUEtiapine 50 MG TAB PO SCH (20:08)
[2022-05-05] MEDS: CHOLECALCIFEROL 25 MCG (1000 IU) TABLET PO SCH (20:08)
[2022-05-05] MEDS: SERTRALINE 50 MG TAB PO SCH (20:13)
[2022-05-06] MEDS: SODIUM CHLORIDE 0.9% 1,000 ML IV SCH ×2 (00:08→08:28)
[2022-05-06] MEDS: HEPARIN SODIUM,PORCINE/PF 5,000 UNIT/0.5 ML SYRINGE SQ SCH ×3 (00:08→15:45)
[2022-05-06] MEDS: METOPROLOL SUCCINATE (ER) 25 MG TAB.ER.24H PO SCH (08:25)
[2022-05-06] MEDS: hydrALAZINE HCL 25 MG TAB PO SCH ×3 (08:25→20:21)
[2022-05-06] MEDS: amLODIPine 5 MG TAB PO SCH (08:25)
[2022-05-06 08:27] LABS: Basophils % (A) 0 %; Eosinophils # (A) 0.2 k/uL (0-0.7); Eosinophils % (A) 2 %; HCT 32.1 % (39.0-53.0); HGB 11.1 gm/dL (13.0-17.5); Lymphocytes # (A) 3.8 k/uL (1.0-4.8); Lymphocytes % (A) 46 %; MCH 32.5 pg (25.0-35.0); MCHC 34.5 g/dL (31.0-37.0); MCV 94.2 fL (80.0-100.0); Mean Platelet Volume 11.5; Monocytes # (A) 0.2 k/uL (0-1.0); Monocytes % (A) 3 %; Neutrophils # (A) 3.8 k/uL (1.3-7.7); Neutrophils % (A) 46 %; RDW 12.6 % (11.5-15.5); WBC 8.2 k/uL (3.8-10.6)
[2022-05-06] MEDS: FAMOTIDINE 20 MG/2 ML VIAL IV SCH ×2 (08:27→20:29)
[2022-05-06] MEDS: ASPIRIN 81 MG PO SCH (08:27)
[2022-05-06 08:39] LABS: Platelet Count 85 k/uL (150-450)
[2022-05-06 08:40] LABS: ALT 16 U/L (4-49); AST 27 U/L (17-59); African American GFR (CKD) >90 (>60 ml/min/1.73 sqM); Albumin 2.9 g/dL (3.5-5.0); Albumin/Globulin Ratio 1.2; Alkaline Phosphatase 61 U/L (38-126); Anion Gap 3 mmol/L; Blood Urea Nitrogen 13 mg/dL (9-20); Calcium 7.7 mg/dL (8.4-10.2); Carbon Dioxide 25 mmol/L (22-30); Chloride 108 mmol/L (98-107); Globulin 2.5 g/dL; Glucose 90 mg/dL (74-99); Non-African American GFR(CKD) >90 (>60 ml/min/1.73 sqM); Sodium 136 mmol/L (137-145); Total Bilirubin 0.3 mg/dL (0.2-1.3); Total Protein 5.4 g/dL (6.3-8.2)
--- NOTE | 2022-05-06 10:56 | P.PN ---
Subjective Progress Note Date: 05/06/22 seen and examined at bedside. Patient denies chest pain shortness of breath. Patient continues to want to get up out of his bed however his wheelchair is not care. She was watching a movie on TV and laughing. Objective - Vital Signs Vital signs: Vital Signs Temp 97.3 F L 05/06/22 07:25 Pulse 63 05/06/22 07:25 Resp 19 05/06/22 07:25 BP 165/72 05/06/22 07:25 Pulse Ox 96 05/06/22 07:27 FiO2 Intake & Output 05/05/22 05/06/22 05/06/22 18:59 06:59 18:59 Intake Total 180 350 Output Total 1050 300 Balance -870 50 Intake: Oral 180 350 Output: Urine 1050 300 Other: Voiding Method External Catheter External Catheter - Exam General: [non toxic], [no distress], [appears at stated age] Derm: [warm], [dry] Head: [atraumatic], [normocephalic], [symmetric] Eyes: [EOMI], [no lid lag], [anicteric sclera] Mouth: [no lip lesion], [mucus membranes moist] Cardiovascular: [S1S2 reg], [no murmur], [positive posterior tibial pulse bilateral], Lungs: [CTA bilateral], [no rhonchi, no rales] , [no accessory muscle use] Abdominal: [soft], [ nontender to palpation], [no guarding], [no appreciable organomegaly] Ext: [no gross muscle atrophy], [no edema], [no contractures] Neuro: [ CN II-XI grossly intact], [no focal neuro deficits] Psych: [Alert], [oriented to person and place developmental delay. - Labs CBC & Chem 7: 05/06/22 07:45 05/06/22 07:45 Labs: Abnormal Lab Results - Last 24 Hours (Table) 05/05/22 05/05/22 05/06/22 Range/Units 07:08 07:08 07:45 RBC 3.43 L 3.40 L (4.40-5.60) X 10*6/uL Hgb 10.6 L 11.1 L (13.0-17.0) g/dL Hct 32.6 L 32.1 L (39.6-50.0) % Plt Count 85 L 85 L (140-440) X 10*3/uL Plt Count Comment DECREASED A MPV 13.5 H (9.5-12.2) fL Lymphocytes # (Manual) 5.90 H (0.90-5.00) X 10*3/uL Sodium (137-145) mmol/L Chloride (98-107) mmol/L Anion Gap 8.70 L (10.00-18.00) mmol/L Creatinine (0.66-1.25) mg/dL BUN/Creatinine Ratio 21.57 H (12.00-20.00) Ratio Calcium 8.2 L (8.7-10.3) mg/dL Total Protein (6.3-8.2) g/dL Albumin (3.5-5.0) g/dL 05/06/22 Range/Units 07:45 RBC (4.40-5.60) X 10*6/uL Hgb (13.0-17.0) g/dL Hct (39.6-50.0) % Plt Count (140-440) X 10*3/uL Plt Count Comment MPV (9.5-12.2) fL Lymphocytes # (Manual) (0.90-5.00) X 10*3/uL Sodium 136 L (137-145) mmol/L Chloride 108 H (98-107) mmol/L Anion Gap (10.00-18.00) mmol/L Creatinine 0.58 L (0.66-1.25) mg/dL BUN/Creatinine Ratio (12.00-20.00) Ratio Calcium 7.7 L (8.7-10.3) mg/dL Total Protein 5.4 L (6.3-8.2) g/dL Albumin 2.9 L (3.5-5.0) g/dL Assessment and Plan Assessment: 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 Some abnormal diffusion signal is within the left watershed region and left bosch radiata. These findings can be compatible with acute ischemic changes. Atrophy noted. -Repeat CT of the brain did reveals new focus of hyperdensity within the left upper lobe concern for intraparenchymal hemorrhage. New hypodense regions within the left parietal lobe concerning for acute subacute ischemia. Previously seen hyperdense left MCA is not well visualized on repeat CT. -Neurology following patient has been started on aspirin 81 mg daily by neuro logy continue to monitor closely -Continue neuro assessments -PT OT Carotid artery stenosis with Moderate carotid narrowing proximal right subclavian artery. 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 Vascular surgery feels that patient is not a surgical candidate and recommended outpatient follow-up. Mild leukocytosis likely reactive -Monitor CBC -Currently trending down Thrombocytopenia -Unclear etiology -Monitor for now Chronic conditions: Hypertension, hyperlipidemia -Continue with home meds DVT prophylaxis -Bakari AKA, s/p TPA Disposition: Discharge in the morning The patient is admitted with an anticipated greater than 2 midnight stay for evaluation of acute CVA CODE STATUS: Do Not Resuscitate Discussed with: Clin Asst Anticipated discharge date: 2-[address]: Home
--- NOTE | 2022-05-06 12:18 | P.PN ---
Subjective Progress Note Date: 05/06/22 Patient seen at the bedside and feels doing a lot better compared to his presentation. According to the nurse his speech is somewhat better today and that he was able to tell her that that he is in the hospital. Objective - Vital Signs Vital signs: Vital Signs Temp 97.3 F L 05/06/22 07:25 Pulse 63 05/06/22 07:25 Resp 19 05/06/22 07:25 BP 165/72 05/06/22 07:25 Pulse Ox 96 05/06/22 07:27 FiO2 Intake & Output 05/05/22 05/06/22 05/06/22 18:59 06:59 18:59 Intake Total 180 350 Output Total 1050 300 Balance -870 50 Intake: Oral 180 350 Output: Urine 1050 300 Other: Voiding Method External Catheter External Catheter - Exam GENERAL: The patient is lying in bed and is not in acute distress. NEUROLOGICAL: Somewhat limited because of his cooperation. Higher mental function: The patient is awake, alert, oriented to self and stated he is in the hospital. He was able to name watch but and correctly for crayons stated colors. He does seems to have expressive aphasia but improving. No neglect. . Cranial nerves: The pupils are round, equal and reactive to light. Visual monteiro is a bit limited since was looking at finger and not nose while examining him but appear full throughout. Extraocular movement is intact no nystagmus is noted. Facial sensation is normal to touch throughout. The facial strength is mild right lower facial weakness. Tongue is midline and moved [id number] without any difficulty. No dysarthria is noted. Shoulder shrug is normal bilaterally. Motor: The strength is somewhat limited because of cooperation but no pronator drift in uppers and appears equal. Equal hand nurse transitional. Has above knee amputation and able to raise proximally bilaterally. Normal tone and bulk. Cerebellum: Normal finger to nose bilaterally. Sensation: Sensation is normal to touch throughout. Reflexes (right/left): 1+ throughout. Plantars: Has above knee amputation bilaterally. Some of the workup during this hospital visit consisted of: Lipid panel: It is reported as triglycerides 62, cholesterol 181, LDL of [address] of the head is reported as hyperdense M1 segment left MCA knee from 2015. Acute left MCA thrombus not excluded. No acute intracranial hemorrhage, mass effect or midline shift is seen. Mild ventriculomegaly is unchanged and may be partly related to central cerebral atrophy. I personally reviewed the CT of the head and I agree of the report. CT angiography of the head is reported as acute large vessel occlusion at the M1 and M2 junction of the left MCA. One of the M2 branches vessel remains opacified. Persistent origin of the left BASE ENGINEER. Hypoplastic right vertebral artery. CT angiography of the neck is reported as severe greater than 80% proximal right ICA stenosis. Moderate approximate 50% distal left common carotid stenosis. Moderate office carotid narrowing proximal right subclavian artery. 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 Note a very large hiatal hernia. On the left this occupies the left and mid and lower lung. On the right at least the entire lower lung is occupied. Carotid duplex is reported as measurements indicate significant severe greater than 70% proximal right ICA stenosis and moderate 50-69 proximal left ICA stenosis. There is extensive atherosclerotic changes in both bifurcation. Repeat CT had 24 hour post-TPA on 05/03/2022: Is reported as new focus of hyperdensity within the left upper lobe concerning for intraparenchymal hemorrhage. Attention on follow-up. Hypotensive region in the left parietal lobe concerning for acute/subacute ische jelani. Previously seen hyperdense left MCA is not well visualized on today's exam. Nonspecific white matter changes likely due to a chronic microangiopathy. I personally reviewed the CT head and I do agree about the hypodensity over the left parietal lobe concerning for stroke acute the subacute regarding the bleed it's such a small minimal focus. Repeat CT of the head on 05/04/2022 is reported as there is mild to moderate diffuse cerebral atrophy and mild chronic small vessel ischemic changes redemonstrated. They're suspected evolving acute subacute infarct over left parietal lobe posterior watershed region with hemorrhagic transformation similar appearance to most recent CT. I personally reviewed the CT and I agree with the reports again the bleed is not significant and is a very small focus MRI brain is reported as acute ischemic type changes throughout the left temporal insular cortex and mid and distal parietal lobe. Some abnormal diffusion the signal in the left watershed region and left bosch radiata. These findings can be compatible with acute ischemic changes. Atrophy CT of the head is reported as there is mild to moderate diffuse age-related cerebral atrophy and mild chronic small vessel ischemic changes redemonstrated. Evolving left-sided acute infarction in the MCA distribution again seen and better appreciated on the recent MRI. No new or increased acute hemorrhagic transformation. EKG is reported as sinus rhythm. Right bundle branch block, anterior myocardial infarction of indeterminate age. Abnormal EKG. 2-D echo was reported as mild increased left ventricular wall thickness. Left ventricular ejection fraction of 55. Severe mitral calcification. Moderate mitral regurgitation. - Labs CBC & Chem 7: 05/06/22 07:45 05/06/22 07:45 Labs: Abnormal Lab Results - Last 24 Hours (Table) 05/05/22 05/06/22 05/06/22 Range/Units 07:08 07:45 07:45 RBC 3.43 L 3.40 L (4.40-5.60) X 10*6/uL Hgb 10.6 L 11.1 L (13.0-17.0) g/dL Hct 32.6 L 32.1 L (39.6-50.0) % Plt Count 85 L 85 L (140-440) X 10*3/uL Plt Count Comment DECREASED A MPV 13.5 H (9.5-12.2) fL Lymphocytes # (Manual) 5.90 H (0.90-5.00) X 10*3/uL Sodium 136 L (137-145) mmol/L Chloride 108 H (98-107) mmol/L Creatinine 0.58 L (0.66-1.25) mg/dL Calcium 7.7 L (8.4-10.2) mg/dL Total Protein 5.4 L (6.3-8.2) g/dL Albumin 2.9 L (3.5-5.0) g/dL Assessment and Plan Assessment: Acute ischemic stroke post IV TPA with small focus of hemorrhagic transformation (very small bleed). Presented with right sided weakness, facial weakness, speech difficulty and dysarthria with NIH 12 on presentation. Currently symptoms improving but continues to have mild right facial droop and expressive aphasia but improving. MRI Brain is left temporal/parietal and watershed over the left insular. Stroke appear embolic. Possibly has artery to artery (on carotid has 50-69% stenosis on Left ICA). Rule out cardioembolic Left MCA thrombus (M1/M2 junction). Stroke seems embolic. Asymptomatic right ICA stenosis Left ICA stenosis about 50% on CTA but on duplex is 50-69% stenosis Large hiatal hernia History of left carotid endarterectomy Developmental delay History of seizure and the last seizure per medical record stopped medications in 2013 Amputation above both knees due to peripheral vascular disease, Coronary artery disease Bipolar Plan: Patient does not need any reversible factor for bleed since it is such a small/minimal focus and stable on repeat CT head and not evolving. Continue ASA 81mg daily starting and not dual antiplatelets because of increased risk for bleed. Continue Lipitor 80 mg daily at bedtime for secondary stroke prophylaxis and as well as help stabilize the plaque. Vascular surgery team is consulted for the carotid stenosis. Also he has Moderate carotid narrowing proximal right subclavian artery. 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 Vascular surgery team did not feel like the patient is a surgical candidate and recommended outpatient follow-up. PT OT and ANIMAL RIDE ATTENDANT are consulted Continue neuro checks Continue cardiac monitoring We'll defer the rest of the medical measure the primary team For DVT prophylaxis On subcu heparin 5000 units every 8 hours. Upon discharge the patient needs to follow-up with a neurologist within 1-2 weeks. The plan was discussed with the patient's nurse. No further neurological work-up. Will sign off. Please notify neurology team if any further concerns. Time with Patient: Less than 30
[2022-05-06] MEDS: TAMSULOSIN 0.4 MG CAP.ER.24H PO SCH (15:45)
[2022-05-06] MEDS: MELATONIN 3 MG TABLET PO SCH (20:29)
[2022-05-06] MEDS: CHOLECALCIFEROL 25 MCG (1000 IU) TABLET PO SCH (20:29)
[2022-05-06] MEDS: MULTIVITAMINS, THERA 1 EACH TAB PO SCH (20:29)
[2022-05-06] MEDS: SERTRALINE 50 MG TAB PO SCH (20:29)
[2022-05-06] MEDS: QUEtiapine 50 MG TAB PO SCH (20:29)
[2022-05-06] MEDS: ATORVASTATIN 80 MG TAB PO SCH (20:29)
[2022-05-07] MEDS: HEPARIN SODIUM,PORCINE/PF 5,000 UNIT/0.5 ML SYRINGE SQ SCH ×2 (00:05→08:00)
[2022-05-07] MEDS: SODIUM CHLORIDE 0.9% 1,000 ML IV SCH ×2 (03:26→12:36)
[2022-05-07 07:31] VITALS: BP 161/83; PULSE 60; RESP 20; TEMP 98.1
[2022-05-07 07:35] LABS: Basophils # (A) 0.1 k/uL (0-0.2); Basophils % (A) 1 %; Eosinophils # (A) 0.3 k/uL (0-0.7); Eosinophils % (A) 3 %; HCT 32.4 % (39.0-53.0); HGB 11.2 gm/dL (13.0-17.5); Lymphocytes # (A) 3.6 k/uL (1.0-4.8); Lymphocytes % (A) 43 %; MCH 32.4 pg (25.0-35.0); MCHC 34.7 g/dL (31.0-37.0); MCV 93.2 fL (80.0-100.0); Mean Platelet Volume 11.5; Monocytes # (A) 0.3 k/uL (0-1.0); Monocytes % (A) 3 %; Neutrophils # (A) 3.9 k/uL (1.3-7.7); Neutrophils % (A) 48 %; RBC 3.47 m/uL (4.30-5.90); RDW 12.5 % (11.5-15.5); WBC 8.2 k/uL (3.8-10.6)
[2022-05-07 07:49] LABS: Platelet Count 89 k/uL (150-450)
[2022-05-07 07:50] LABS: ALT 22 U/L (4-49); AST 34 U/L (17-59); African American GFR (CKD) >90 (>60 ml/min/1.73 sqM); Albumin 2.9 g/dL (3.5-5.0); Albumin/Globulin Ratio 1.1; Alkaline Phosphatase 69 U/L (38-126); Anion Gap 2 mmol/L; Blood Urea Nitrogen 9 mg/dL (9-20); Calcium 7.7 mg/dL (8.4-10.2); Carbon Dioxide 25 mmol/L (22-30); Chloride 109 mmol/L (98-107); Globulin 2.6 g/dL; Glucose 93 mg/dL (74-99); Non-African American GFR(CKD) >90 (>60 ml/min/1.73 sqM); Potassium 3.8 mmol/L (3.5-5.1); Sodium 136 mmol/L (137-145); Total Bilirubin 0.3 mg/dL (0.2-1.3); Total Protein 5.5 g/dL (6.3-8.2)
[2022-05-07] MEDS: amLODIPine 5 MG TAB PO SCH (07:57)
[2022-05-07] MEDS: hydrALAZINE HCL 25 MG TAB PO SCH (07:58)
[2022-05-07] MEDS: METOPROLOL SUCCINATE (ER) 25 MG TAB.ER.24H PO SCH (07:58)
[2022-05-07] MEDS: ASPIRIN 81 MG PO SCH (07:59)
[2022-05-07] MEDS: FAMOTIDINE 20 MG/2 ML VIAL IV SCH (07:59)
--- NOTE | 2022-05-07 10:24 | P.DS ---
Providers Date of admission: 05/02/22 19:34 Attending physician: Issa Charles MD Consults: 05/02/22 19:34 Consult Physician Urgent Consulting Provider: Ba Leroy Consult Reason/Comments: Ischemic stroke status post alteplase Do you want consulting provider notified?: Already Contacted 05/02/22 19:35 Consult Physician Routine Consulting Provider: Nancy Joaquin Consult Reason/Comments: ICU care Do you want consulting provider notified?: Already Contacted 05/03/22 07:14 Consult Physician Urgent Consulting Provider: Ind[place] David Consult Reason/Comments: Severe right ICA stenosis Do you want consulting provider notified?: Yes Primary care physician: Stated None Assessment: Admitting diagnoses: CVA Discharge diagnoses: 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 The patient was confused at the time of interview with history obtained from the ED provider and from the patient's pelletizer operator at the bedside. The patient had reportedly taken a nap earlier today at around 12:30 PM and when he woke up at around 2, the pelletizer operator noticed that the patient now was confused and had a right-sided facial droop as well as slurred speech. He immediately activated EMS who brought the patient emergency room. Code stroke was activated and the case was discussed by the ED physician with neuro service plumber. CT angiogram revealed an acute large vessel occlusion of the left MCA. The neuro service plumber recommended TPA which was subsequently administered. The patient was thereafter taken to the medical ICU where he was seen and evaluated. As per the pelletizer operator at the bedside, the patient's slurred speech and facial droop had resolved but he continued to be confused albeit improved from presentation. The patient was a very poor historian but denied any active complaints at the time of interview. Chest x-ray in the emergency room revealed patchy right-sided interstitial infiltrate with an elevated left diaphragm suggestive of diaphragmatic paralysis. EKG had revealed sinus rhythm at 69 bpm with right bundle branch block with Q waves in the inferior leads as reviewed by me. Laboratory evaluation was remarkable for platelet count of 96, down from 172 in 2015. Physical exam: General: [non toxic], [no distress], [appears at stated age] Derm: [warm], [dry] Head: [atraumatic], [normocephalic], [symmetric] Eyes: [EOMI], [no lid lag], [anicteric sclera] Mouth: [no lip lesion], [mucus membranes moist] Cardiovascular: [S1S2 reg], [no murmur], [positive posterior tibial pulse bilateral], Lungs: [CTA bilateral], [no rhonchi, no rales] , [no accessory muscle use] Abdominal: [soft], [ nontender to palpation], [no guarding], [no appreciable organomegaly] Ext: [no gross muscle atrophy], [no edema], [no contractures]Bakari AKA Neuro: [ CN II-XI grossly intact], [no focal neuro deficits] Psych: [Alert] [appropriate affect] Assessment/Plan 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 Some abnormal diffusion signal is within the left watershed region and left bosch radiata. These findings can be compatible with acute ischemic changes. Atrophy noted. -Repeat CT of the brain did reveals new focus of hyperdensity within the left upper lobe concern for intraparenchymal hemorrhage. New hypodense regions within the left parietal lobe concerning for acute subacute ischemia. Previously seen hyperdense left MCA is not well visualized on repeat CT. -Neurology followed patient Patient has been started on aspirin 81 mg daily by neurology patient is stable for discharge -PT OT provided Carotid artery stenosis with Moderate carotid narrowing proximal right subclavian artery. 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 Vascular surgery feels that patient is not a surgical candidate and recommended outpatient follow-up. Mild leukocytosis likely reactive resolved NC/NC anemia stable at 11.2 Thrombocytopenia stable -Unclear etiology -Monitor for now Chronic conditions: Hypertension, hyperlipidemia -Continue with home meds Bakari AKA Disposition: Home with [facility] and home care Condition: Stable Activity: As tolerated Diet: cardiac Follow-up with PCP in 2-7 days Follow-up with vascular in 1 week Patient Condition at Discharge: Fair Plan - Discharge Summary Discharge Rx Participant: Yes New Discharge Prescriptions: New Aspirin 81 mg PO DAILY #30 tab Atorvastatin [Lipitor] 80 mg PO HS 30 Days #30 tab Continue Metoprolol Succinate [Toprol XL] 25 mg PO DAILY@0800 QUEtiapine [SEROquel] 50 mg PO HS@1999 Melatonin 3 mg PO HS@1999 Cholecalciferol [Vitamin D3 (25 Mcg = 1000 Iu)] 50 mcg PO HS@1999 hydrALAZINE HCL [Apresoline] 25 mg PO TID@0800,1599,1999 Multivitamins, Thera [Multivitamin (formulary)] 1 tab PO HS@1999 Tamsulosin [Flomax] 0.4 mg PO DAILY@1600 Sertraline [Zoloft] 50 mg PO HS@1999 amLODIPine [Norvasc] 5 mg PO DAILY@0800 Bacitracin Zinc Oint 1 applic TOPICAL BID@799,1999 Discharge Medication List Metoprolol Succinate [Toprol XL] 25 mg PO DAILY@0800 04/09/14 [History] QUEtiapine [SEROquel] 50 mg PO HS@199906/03/14 [History] Bacitracin Zinc Oint 1 applic TOPICAL BID@0800,199905/02/22 [History] Cholecalciferol [Vitamin D3 (25 Mcg = 1000 Iu)] 50 mcg PO HS@199905/02/22 [History] Melatonin 3 mg PO HS@199905/02/22 [History] Multivitamins, Thera [Multivitamin (formulary)] 1 tab PO HS@199905/02/22 [History] Sertraline [Zoloft] 50 mg PO HS@199905/02/22 [History] Tamsulosin [Flomax] 0.4 mg PO DAILY@1600 05/02/22 [History] amLODIPine [Norvasc] 5 mg PO DAILY@0800 05/02/22 [History] hydrALAZINE HCL [Apresoline] 25 mg PO TID@0800,1600,199905/02/22 [History] Aspirin 81 mg PO DAILY #30 tab 05/07/22 [Rx] Atorvastatin [Lipitor] 80 mg PO HS 30 Days #30 tab 05/07/22 [Rx] Follow up Appointment(s)/Referral(s): Marguerite Jerez DO [STAFF PHYSICIAN] - 1 Week None,Stated [Primary Care Provider] - 1-2 days Patient Instructions/Handouts: Ischemic Stroke (GEN) Discharge Disposition: OTHER INSTITUTION NOT DEFINED
== END 2022-05-07 14:00 | disposition home health service (06) | DRG 62 ==
LOC: EC 15:31 → 2SICU 19:34 → 5NMEDONC 05-04 20:04
PROVIDERS: ADMIT Family Medicine; ATTEND Family Medicine
DX: I63.412 Cerebral infarction due to embolism of left middle cerebral artery (principal); G81.91 Hemiplegia, unspecified affecting right dominant side; D69.6 Thrombocytopenia, unspecified; J98.6 Disorders of diaphragm; I05.2 Rheumatic mitral stenosis with insufficiency; R47.01 Aphasia; G93.89 Other specified disorders of brain; I11.9 Hypertensive heart disease without heart failure; R54 Age-related physical debility; Z89.611 Acquired absence of right leg above knee; Z89.612 Acquired absence of left leg above knee; F31.9 Bipolar disorder, unspecified; G40.909 Epilepsy, unspecified, not intractable, without status epilepticus; J44.9 Chronic obstructive pulmonary disease, unspecified; I73.89 Other specified peripheral vascular diseases; I65.01 Occlusion and stenosis of right vertebral artery; I65.23 Occlusion and stenosis of bilateral carotid arteries; R29.810 Facial weakness; F81.9 Developmental disorder of scholastic skills, unspecified; R62.50 Unspecified lack of expected normal physiological development in childhood; I25.10 Atherosclerotic heart disease of native coronary artery without angina pectoris; Z66 Do not resuscitate; R47.81 Slurred speech; R29.712 NIHSS score 12; K44.9 Diaphragmatic hernia without obstruction or gangrene; F79 Unspecified intellectual disabilities; D72.828 Other elevated white blood cell count; E78.5 Hyperlipidemia, unspecified; I45.10 Unspecified right bundle-branch block; R29.818 Other symptoms and signs involving the nervous system; R27.0 Ataxia, unspecified; Z79.899 Other long term (current) drug therapy; Z88.7 Allergy status to serum and vaccine; Z87.891 Personal history of nicotine dependence; I25.2 Old myocardial infarction
CPT/HCPCS: 36415; 37195; 70450; 70496; 70498; 70551; 71046; 80048; 80053; 80061; 83735; 84484; 85025; 85610; 85730; 93005; 93306; 93880; 94760; 96360; 96361; 99291

== ENCOUNTER 2022-09-24 11:43 | Emergency (ER) | payer MEDICARE, OTHER ==
[2022-09-24 12:24] LABS: HCT 38.6 % (39.0-53.0); HGB 13.1 gm/dL (13.0-17.5); MCV 94.2 fL (80.0-100.0); Mean Platelet Volume 11.9; RDW 13.3 % (11.5-15.5); WBC 14.6 k/uL (3.8-10.6)
[2022-09-24 12:36] LABS: Partial Thromboplastin Time 28.8 sec (22.0-30.0); Prothrombin Time 10.8 sec (9.0-12.0)
--- NOTE | 2022-09-24 12:36 | ED ---
Altered Mental Status HPI - General Chief Complaint: Altered Mental Status Stated Complaint: AMS Time Seen by Provider: 09/24/22 12:07 Source: patient, EMS Mode of arrival: EMS Limitations: altered mental status - History of Present Illness Initial Comments: This patient is an 82-year-old man here to have evaluation for altered mental status. History is obtained from the patient and from one of the caregivers at his [facility] home. The patient reportedly behaving similar to a previous stroke. They noted when they checked his vital signs at home that is heart rate and blood pressure were little low. His heart rate was in the upper 40s to low 50s, his blood pressure was in the 90-100 systolic range. The patient reportedly was picking at his brief and didn't seem like his usual self. Caregiver states he seems more alert now. When I interview the patient he is denying pain anywhere. He denies dyspnea. He does state that he is hungry and he would like to eat. MD Complaint: altered mental status -: hour(s) Consistency of Symptoms: constant Context: history of similar presentation Associated Symptoms: denies other symptoms - Related Data Home Medications Medication Instructions Recorded Confirmed Metoprolol Succinate [Toprol XL] 25 mg PO DAILY@0800 04/09/14 05/02/22 QUEtiapine [SEROquel] 50 mg PO HS@199906/03/14 05/02/22 Bacitracin Zinc Oint 1 applic TOPICAL BID@0800,199905/02/22 05/02/22 Cholecalciferol [Vitamin D3 (25 50 mcg PO HS@199905/02/22 05/02/22 Mcg = 1000 Iu)] Melatonin 3 mg PO HS@199905/02/22 05/02/22 Multivitamins, Thera [Multivitamin 1 tab PO HS@199905/02/22 05/02/22 (formulary)] Sertraline [Zoloft] 50 mg PO HS@199905/02/22 05/02/22 Tamsulosin [Flomax] 0.4 mg PO DAILY@1600 05/02/22 05/02/22 amLODIPine [Norvasc] 5 mg PO DAILY@0800 05/02/22 05/02/22 hydrALAZINE HCL [Apresoline] 25 mg PO TID@0800,1600,199905/02/22 05/02/22 Previous Rx's Medication Instructions Recorded Aspirin 81 mg PO DAILY #30 tab 05/07/22 Atorvastatin [Lipitor] 80 mg PO HS 30 Days #30 tab 05/07/22 Ciprofloxacin HCl [Cipro] 500 mg PO Q12HR #14 tablet 09/24/22 Allergies Allergy/AdvReac Type Severity Reaction Status Date / Time tuberculin, purified protein Allergy Unknown Verified 09/24/22 11:54 deriva [tuberculin,purif.prot.deriv.] Review of Systems ROS Statement: Those systems with pertinent positive or pertinent negative responses have been documented in the HPI. ROS Other: All systems not noted in ROS Statement are negative. Limitations: ROS unobtainable due to patients medical condition Respiratory: Denies: cough, dyspnea Cardiovascular: Denies: chest pain Gastrointestinal: Denies: abdominal pain, vomiting Neurological: Denies: headache Past Medical History Past Medical History: Coronary Artery Disease (CAD), COPD, Eye Disorder, GERD/Reflux, Hypertension, Seizure Disorder, Vascular Disorder Additional Past Medical History / Comment(s): developmental delay/mental retardation. Ulcer right ankle, 2010 ULCER, SEIZURES YEARS AGO NOT TAKING MEDS FOR IT SINCE OCTOBER 2013, PAD, hyponatremia. History of Any Multi-Drug Resistant Organisms: None Reported Additional Past Surgical History / Comment(s): L Carotid endarectomy, angiogram was done on 05/24/2014 [facility], bilateral AKA Past Anesthesia/Blood Transfusion Reactions: No Reported Reaction Past Psychological History: Bipolar Smoking Status: Former smoker Past Alcohol Use History: Rare Past Drug Use History: None Reported - Past Family History Father Family Medical History: Unable to Obtain Mother Family Medical History: Unable to Obtain Additional Family Medical History / Comment(s): Patient confused General Exam Limitations: altered mental status General appearance: alert, in no apparent distress Head exam: Present: atraumatic, normocephalic Eye exam: Present: normal appearance. Absent: scleral icterus, conjunctival injection ENT exam: Present: mucous membranes dry Neck exam: Present: normal inspection Respiratory exam: Present: normal lung sounds bilaterally. Absent: respiratory distress, wheezes, rales, rhonchi, stridor Cardiovascular Exam: Present: normal rhythm, bradycardia (Heart rate 52 bpm), normal heart sounds. Absent: systolic murmur, diastolic murmur, rubs, gallop GI/Abdominal exam: Present: soft. Absent: distended, tenderness, guarding, rebound, mass Extremities exam: Present: normal capillary refill, other (Lower extremity amp utations) Neurological exam: Present: alert, CN II-XII intact. Absent: oriented X3 (Patient is oriented to person and recognizes he is in clinic setting, not oriented to date), motor sensory deficit Skin exam: Present: warm, dry, intact, normal color. Absent: rash Course Vital Signs 09/24/22 09/24/22 09/24/22 11:49 12:59 14:13 Temperature 98.4 F Pulse Rate 52 L 66 58 L Respiratory 20 20 18 Rate Blood Pressure 111/81 117/88 94/63 O2 Sat by Pulse 96 96 96 Oximetry 09/24/22 16:38 Temperature 98.7 F Pulse Rate 65 Respiratory 18 Rate Blood Pressure 138/87 O2 Sat by Pulse 97 Oximetry Medical Decision Making - Medical Decision Making Patient is an 82-year-old man here to have evaluation for altered mental status The patient had chest x-ray which I interpreted as being negative for acute infiltrates, congestive heart failure and pneumothorax The patient had CT of the brain which I interpreted as being negative for acute bony trauma or intracranial hemorrhage Was pt. sent in by a medical professional or institution (, PA, CONSTRUCTION SUPERINTENDENT, urgent care, hospital, or fci...) When possible be specific @ -[No] Did you speak to anyone other than the patient for history (EMS, parent, family, police, friend...)? What history was obtained from this source @ -[EMS personnel Did you review nursing and triage notes (agree or disagree)? Why? @ -[I reviewed and agree with nursing and triage notes] Were old charts reviewed (outside hosp., previous admission, EMS record, old EKG, old radiological studies, urgent care reports/EKG's, fci records)? Report findings @ -[No old charts were reviewed] Differential Diagnosis (chest pain, altered mental status, abdominal pain women, abdominal pain men, vaginal bleeding, weakness, fever, dyspnea, syncope, headache, dizziness, GI bleed, back pain, seizure, CVA, palpatations, mental health, musculoskeletal)? @ -[Differential Altered Mental Status: Hypoglycemia, DKA, hypercapnia, ETOH, overdose, CO poisoning, trauma, myxedema coma, HTN encephalopathy, infection, encephalitis, psychosis, intercranial hemorrhage, hepatic encephalopathy, meningitis, CVA, this is not meant to be an all-inclusive list EKG interpreted by me (3pts min.). @ -[As above] X-rays interpreted by me (1pt min.). @ -[As above CT interpreted by me (1pt min.). @ -[As above U/S interpreted by me (1pt. min.). @ -[None done] What testing was considered but not performed or refused? (CT, X-rays, U/S, labs)? Why? @ -[None] What meds were considered but not given or refused? Why? @ -[None] Did you discuss the management of the patient with other professionals (professionals i.e. , PA, CONSTRUCTION SUPERINTENDENT, lab, RT, psych nurse, rn social services, welt maker, teacher, supply officer, catalytic case operator)? Give summary @ -[No] Was smoking cessation discussed for >3mins.? @ -[No] Was critical care preformed (if so, how long)? @ -[No] Were there social determinants of health that impacted care today? How? (Homelessness, low income, unemployed, alcoholism, drug addiction, transportation, low edu. Level, literacy, decrease access to med. care, nursing home, rehab)? @ -[No] Was there de-escalation of care discussed even if they declined (Discuss DNR or withdrawal of care, Hospice)? DNR status @ -[No] What co-morbidities impacted this encounter? (DM, HTN, Smoking, COPD, CAD, Cancer, CVA, ARF, Chemo, Hep., AIDS, mental health diagnosis, sleep apnea, morbid obesity)? @ -[None] Was patient admitted / discharged? Hospital course, mention meds given and route, prescriptions, significant lab abnormalities, going to OR and other pertinent info. @ -[Discharged Undiagnosed new problem with uncertain prognosis? @ -[No] Drug Therapy requiring intensive monitoring for toxicity (Heparin, Nitro, Insulin, Cardizem)? @ -[No] Were any procedures done? @ -[No] Diagnosis/symptom? @ -[default] Acute, or Chronic, or Acute on Chronic? @ -[Acute urinary tract infection Altered mental status Uncomplicated (without systemic symptoms) or Complicated (systemic symptoms)? @ -[Complicated Side effects of treatment? @ -[No] Exacerbation, Progression, or Severe Exacerbation? @ -[No] Poses a threat to life or bodily function? How? (Chest pain, [place], [place], pneumonia, PE, COPD, DKA, ARF, appy, cholecystitis, CVA, Diverticulitis, Homicidal, Suicidal, threat to staff... and all critical care pts) @ -[No] - Lab Data Result diagrams: 09/24/22 12:13 09/24/22 12:13 Lab Results 09/24/22 09/24/22 09/24/22 Range/Units 12:13 12:13 12:13 WBC 14.6 H (3.8-10.6) k/uL RBC 4.10 L (4.30-5.90) m/uL Hgb 13.1 (13.0-17.5) gm/dL Hct 38.6 L (39.0-53.0) % MCV 94.2 (80.0-100.0) fL MCH 32.0 (25.0-35.0) pg MCHC 34.0 (31.0-37.0) g/dL RDW 13.3 (11.5-15.5) % Plt Count 93 L (150-450) k/uL MPV 11.9 Neutrophils % (Manual) 38 % Lymphocytes % (Manual) 56 % Monocytes % (Manual) 3 % Eosinophils % (Manual) 3 % Neutrophils # (Manual) 5.55 (1.3-7.7) k/uL Lymphocytes # (Manual) 8.18 H (1.0-4.8) k/uL Monocytes # (Manual) 0.44 (0-1.0) k/uL Eosinophils # (Manual) 0.44 (0-0.7) k/uL Nucleated RBCs 0 (0-0) /100 WBC Manual Slide Review Performed RBC Morphology Normal PT 10.8 (9.0-12.0) sec INR 1.0 (<1.2) APTT 28.8 (22.0-30.0) sec Sodium (137-145) mmol/L Potassium (3.5-5.1) mmol/L Chloride (98-107) mmol/L Carbon Dioxide (22-30) mmol/L Anion Gap mmol/L BUN (9-20) mg/dL Creatinine (0.66-1.25) mg/dL Est GFR (CKD-EPI)AfAm (>60 ml/min/1.73 sqM) Est GFR (CKD-EPI)NonAf (>60 ml/min/1.73 sqM) Glucose (74-99) mg/dL Calcium (8.4-10.2) mg/dL Total Bilirubin (0.2-1.3) mg/dL AST (17-59) U/L ALT (4-49) U/L Alkaline Phosphatase (38-126) U/L Troponin I (0.000-0.034) ng/mL Total Protein (6.3-8.2) g/dL Albumin (3.5-5.0) g/dL Urine Color Light Yellow Urine Appearance Clear (Clear) Urine pH 7.0 (5.0-8.0) Ur Specific [place] 1.004 (1.001-1.035) Urine Protein Negative (Negative) Urine Glucose (UA) Negative (Negative) Urine Ketones Negative (Negative) Urine Blood Negative (Negative) Urine Nitrite Negative (Negative) Urine Bilirubin Negative (Negative) Urine Urobilinogen <2.0 (<2.0) mg/dL Ur Leukocyte Esterase Moderate H (Negative) Urine RBC <1 (0-5) /hpf Urine WBC 39 H (0-5) /hpf Urine Bacteria Few H (None) /hpf 09/24/22 09/24/22 Range/Units 12:13 12:13 WBC (3.8-10.6) k/uL RBC (4.30-5.90) m/uL Hgb (13.0-17.5) gm/dL Hct (39.0-53.0) % MCV (80.0-100.0) fL MCH (25.0-35.0) pg MCHC (31.0-37.0) g/dL RDW (11.5-15.5) % Plt Count (150-450) k/uL MPV Neutrophils % (Manual) % Lymphocytes % (Manual) % Monocytes % (Manual) % Eosinophils % (Manual) % Neutrophils # (Manual) (1.3-7.7) k/uL Lymphocytes # (Manual) (1.0-4.8) k/uL Monocytes # (Manual) (0-1.0) k/uL Eosinophils # (Manual) (0-0.7) k/uL Nucleated RBCs (0-0) /100 WBC Manual Slide Review RBC Morphology PT (9.0-12.0) sec INR (<1.2) APTT (22.0-30.0) sec Sodium 135 L (137-145) mmol/L Potassium 4.3 (3.5-5.1) mmol/L Chloride 100 (98-107) mmol/L Carbon Dioxide 29 (22-30) mmol/L Anion Gap 6 mmol/L BUN 22 H (9-20) mg/dL Creatinine 0.68 (0.66-1.25) mg/dL Est GFR (CKD-EPI)AfAm >90 (>60 ml/min/1.73 sqM) Est GFR (CKD-EPI)NonAf 90 (>60 ml/min/1.73 sqM) Glucose 84 (74-99) mg/dL Calcium 8.4 (8.4-10.2) mg/dL Total Bilirubin 0.6 (0.2-1.3) mg/dL AST 29 (17-59) U/L ALT 18 (4-49) U/L Alkaline Phosphatase 97 (38-126) U/L Troponin I <0.012 (0.000-0.034) ng/mL Total Protein 7.0 (6.3-8.2) g/dL Albumin 3.7 (3.5-5.0) g/dL Urine Color Urine Appearance (Clear) Urine pH (5.0-8.0) Ur Specific [place] (1.001-1.035) Urine Protein (Negative) Urine Glucose (UA) (Negative) Urine Ketones (Negative) Urine Blood (Negative) Urine Nitrite (Negative) Urine Bilirubin (Negative) Urine Urobilinogen (<2.0) mg/dL Ur Leukocyte Esterase (Negative) Urine RBC (0-5) /hpf Urine WBC (0-5) /hpf Urine Bacteria (None) /hpf - EKG Data -: EKG Interpreted by [facility] EKG shows normal: sinus rhythm, intervals (LA interval 162, normal. QRS duration 126, prolonged consistent with right bundle-branch block. QTC 445 ms, normal. Possible old inferior infarct, based on Q waves. Old anterior infarct.), QRS complexes (Right bundle-branch block) Rate: bradycardia (Rate 56 bpm) Disposition Clinical Impression: Urinary tract infection Disposition: HOME SELF-CARE Condition: Good Instructions (If sedation given, give patient instructions): Urinary Tract Infection in Men (ED), Altered Mental Status (ED) Prescriptions: Ciprofloxacin HCl [Cipro] 500 mg PO Q12HR #14 tablet Is patient prescribed a controlled substance at d/c from ED?: No Referrals: Sky Bhandari DO [Primary Care Provider] - 1-2 days
[2022-09-24 12:40] LABS: ALT 18 U/L (4-49); AST 29 U/L (17-59); African American GFR (CKD) >90 (>60 ml/min/1.73 sqM); Albumin 3.7 g/dL (3.5-5.0); Alkaline Phosphatase 97 U/L (38-126); Anion Gap 6 mmol/L; Blood Urea Nitrogen 22 mg/dL (9-20); Calcium 8.4 mg/dL (8.4-10.2); Carbon Dioxide 29 mmol/L (22-30); Chloride 100 mmol/L (98-107); Glucose 84 mg/dL (74-99); Non-African American GFR(CKD) 90 (>60 ml/min/1.73 sqM); Potassium 4.3 mmol/L (3.5-5.1); Sodium 135 mmol/L (137-145); Total Bilirubin 0.6 mg/dL (0.2-1.3)
--- NOTE | 2022-09-24 13:04 | XR ---
EXAMINATION TYPE: XR chest 1V portable DATE OF EXAM: 09/24/2022 COMPARISON: Chest x-ray May 02, 2022 HISTORY: Altered mental status and weakness TECHNIQUE: Single AP portable frontal upright view of the chest is obtained. FINDINGS: Low lung volumes with elevated left hemidiaphragm and large hiatal hernia redemonstrated. There are chronic parenchymal changes bilaterally. The cardiac silhouette size is stable and within normal limits. The osseous structures are intact. IMPRESSION: Chronic changes without new acute pulmonary infiltrate.
[2022-09-24 13:27] LABS: Eosinophils # (M) 0.44 k/uL (0-0.7); Lymphocytes # (M) 8.18 k/uL (1.0-4.8); Monocytes # (M) 0.44 k/uL (0-1.0); Neutrophils # (M) 5.55 k/uL (1.3-7.7); Neutrophils % (M) 38 %; Nucleated Red Blood Cells 0 /100 WBC (0-0); Total Cells Counted 100
[2022-09-24 13:28] LABS: RBC Morphology Normal
--- NOTE | 2022-09-24 13:29 | CT ---
EXAMINATION TYPE: CT brain wo con DATE OF EXAM: 09/24/2022 HISTORY: ams CT DLP: 1172.9 mGycm. Automated Exposure Control for Dose Reduction was Utilized. TECHNIQUE: CT scan of the head is performed without contrast. COMPARISON: CT brain May 05, 2022. FINDINGS: There is no acute intracranial hemorrhage or midline shift identified. There is moderate diffuse ventricular and sulcal prominence redemonstrated. There is mild low-attenuation in the periv entricular white matter redemonstrated. Cerumen in the bilateral external auditory canals is redemon strated. The globes are intact and the visualized sinuses are clear. IMPRESSION: No acute intracranial hemorrhage or midline shift. There is moderate diffuse age-relate d cerebral atrophy and mild chronic small vessel ischemic change redemonstrated. No significant batista e from prior.
[2022-09-24 13:31] LABS: Platelet Count 93 k/uL (150-450)
[2022-09-24 13:37] LABS: Appearance,Urine Clear (Clear); Bacteria,Urine Few /hpf; Bilirubin,Urine Negative (Negative); Blood,Urine Negative (Negative); Color,Urine Light Yellow; Glucose,Urine (UA) Negative (Negative); Ketones,Urine Negative (Negative); Leukocyte Esterase,Urine Moderate (Negative); Nitrite,Urine Negative (Negative); Protein,Urine Negative (Negative); RBC,Urine <1 /hpf (0-5); Specific Gravity,Urine 1.004 (1.001-1.035); Urobilinogen,Urine <2.0 mg/dL (<2.0); WBC,Urine 39 /hpf (0-5)
[2022-09-24 14:24] VITALS: RESP 18
[2022-09-24] MEDS ORDERED: SODIUM CHLORIDE 0.9% 1,000 ML IV ONE (15:04)
[2022-09-24 16:40] VITALS: BP 138/87; PULSE 65; TEMP 98.7
== END 2022-09-24 16:40 | disposition home or self-care (01) ==
LOC: EC 11:43
DX: N39.0 Urinary tract infection, site not specified (principal); I10 Essential (primary) hypertension; I25.10 Atherosclerotic heart disease of native coronary artery without angina pectoris; J44.9 Chronic obstructive pulmonary disease, unspecified; F31.9 Bipolar disorder, unspecified; Z79.899 Other long term (current) drug therapy; Z87.891 Personal history of nicotine dependence
CPT/HCPCS: 36415; 93005; 80053; 84484; 85025; 85610; 85730; 81001; 71045; 70450; 99285; 96365; J0696

== ENCOUNTER 2023-08-26 10:53 | Inpatient (IN) | payer MEDICARE, OTHER ==
--- NOTE | 2023-08-26 11:21 | ED ---
Recheck HPI - General Chief Complaint: Recheck/Abnormal Lab/Rx Stated Complaint: Abnormal Labs Time Seen by Provider: 08/26/23 11:05 Source: patient, RN notes reviewed, old records reviewed Mode of arrival: EMS Limitations: altered mental status - History of Present Illness Initial Comments: This is a 83-year-old male to the ER for evaluation. Patient presents today for evaluation of severe weakness not feeling well as patient today presents for abnormal white blood cell count outpatient. Patient himself has no current complaints here in the ER is a poor historian Complaint: abnormal lab (Elevated white blood cell count) -: unknown Returns Today for: Called Because of Abnormal Lab/Test Symptoms Since Prior Visit: no new symptoms Context: called for abnormal lab result Associated Symptoms: none - Related Data Home Medications Medication Instructions Recorded Confirmed Metoprolol Succinate [Toprol XL] 25 mg PO DAILY@0800 04/09/14 08/26/23 QUEtiapine [SEROquel] 50 mg PO HS@199906/03/14 08/26/23 Bacitracin Zinc Oint 1 applic TOPICAL BID@08,199905/02/22 08/26/23 Cholecalciferol [Vitamin D3 (25 50 mcg PO HS@199905/02/22 08/26/23 Mcg = 1000 Iu)] Multivitamins, Thera [Multivitamin 1 tab PO HS@199905/02/22 08/26/23 (formulary)] Sertraline [Zoloft] 50 mg PO HS@199905/02/22 08/26/23 Tamsulosin [Flomax] 0.4 mg PO DAILY@1600 05/02/22 08/26/23 amLODIPine [Norvasc] 5 mg PO DAILY@0800 05/02/22 08/26/23 Aspirin 81 mg PO DAILY@0808/26/23 08/26/23 Atorvastatin Calcium [Lipitor] 40 mg PO HS@199908/26/23 08/26/23 Melatonin 5 mg PO HS@199908/26/23 08/26/23 Allergies Allergy/AdvReac Type Severity Reaction Status Date / Time tuberculin, purified protein Allergy Unknown Verified 08/26/23 12:39 deriva [tuberculin,purif.prot.deriv.] Review of Systems ROS Statement: Those systems with pertinent positive or pertinent negative responses have been documented in the HPI. ROS Other: All systems not noted in ROS Statement are negative. Past Medical History Past Medical History: Coronary Artery Disease (CAD), COPD, Eye Disorder, GERD/Reflux, Hypertension, Seizure Disorder, Vascular Disorder Additional Past Medical History / Comment(s): developmental delay/mental retardation. Ulcer right ankle, 2010 ULCER, SEIZURES YEARS AGO NOT TAKING MEDS FOR IT SINCE OCTOBER 2013, PAD, hyponatremia. History of Any Multi-Drug Resistant Organisms: None Reported Additional Past Surgical History / Comment(s): L Carotid endarectomy, angiogram was done on 05/24/2014 at [facility], bilateral AKA Past Anesthesia/Blood Transfusion Reactions: No Reported Reaction Past Psychological History: Bipolar Smoking Status: Former smoker Past Alcohol Use History: Rare Past Drug Use History: None Reported - Past Family History Father Family Medical History: Unable to Obtain Mother Family Medical History: Unable to Obtain Additional Family Medical History / Comment(s): Patient confused General Exam Limitations: altered mental status General appearance: alert, in no apparent distress Head exam: Present: atraumatic, normocephalic, normal inspection Eye exam: Present: normal appearance, PERRL, EOMI. Absent: scleral icterus, conjunctival injection, periorbital swelling ENT exam: Present: normal exam, mucous membranes moist Neck exam: Present: normal inspection. Absent: tenderness, meningismus, lymphadenopathy Respiratory exam: Present: normal lung sounds bilaterally. Absent: respiratory distress, wheezes, rales, rhonchi, stridor Cardiovascular Exam: Present: regular rate, normal rhythm, normal heart sounds. Absent: systolic murmur, diastolic murmur, rubs, gallop, clicks GI/Abdominal exam: Present: soft, normal bowel sounds. Absent: distended, tenderness, guarding, rebound, rigid Extremities exam: Present: normal inspection, full ROM, normal capillary refill. Absent: tenderness, pedal edema, joint swelling, calf tenderness Back exam: Present: normal inspection Neurological exam: Present: alert, oriented X3, CN II-XII intact Psychiatric exam: Present: normal affect, normal mood Skin exam: Present: warm, dry, intact, normal color. Absent: rash Course Vital Signs 08/26/23 08/26/23 08/26/23 10:56 13:36 14:59 Temperature 97.8 F 99.0 F Pulse Rate 73 89 54 L Respiratory 20 16 16 Rate Blood Pressure 132/70 119/65 163/89 O2 Sat by Pulse 97 98 99 Oximetry 08/26/23 08/26/23 16:05 18:00 Temperature 98.4 F Pulse Rate 60 66 Respiratory 17 16 Rate Blood Pressure 139/79 94/64 O2 Sat by Pulse 98 94 L Oximetry - Reevaluation(s) Reevaluation #1: 08/26/23 14:17 Medical records reviewed Reevaluation #2: 08/26/23 14:17 Patient symptoms unchanged Reevaluation #3: 08/26/23 14:17 Patient informed of results and questions answered Reevaluation #4: Was pt. sent in by a medical professional or institution (, APRIL, PHARMACY ANALYST, urgent care, hospital, or [facility]...) When possible be specific @ -no Did you speak to anyone other than the patient for history (EMS, parent, family, police, friend...)? What history was obtained from this source @ -no Did you review nursing and triage notes (agree or disagree)? Why? @ -agree Are old charts reviewed (outside hosp., previous admission, EMS record, old EKG, old radiological studies, urgent care reports/EKG's, [facility] records)? Report findings @ -yes Differential Diagnosis (chest pain, altered mental status, abdominal pain women, abdominal pain men, vaginal bleeding, weakness, fever, dyspnea, syncope, headac he, dizziness, GI bleed, back pain, seizure, CVA, palpatations, mental health, musculoskeletal)? @ -prior EKG interpreted by me (3pts min.). @ -yes X-rays interpreted by me (1pt min.). @ -yes negative for acute disease CT interpreted by me (1pt min.). @ -no U/S interpreted by me (1pt. min.). @ -no What testing was considered but not performed or refused? (CT, X-rays, U/S, labs)? Why? @ -none What meds were considered but not given or refused? Why? @ -none Did you discuss the management of the patient with other professionals (professionals i.e. APRIL De La Rosa, PHARMACY ANALYST, lab, RT, psych nurse, social service assistant, vending machine refiller, teacher, donor relations officer, machine adjuster leader case trim)? Give summary @ -no Was smoking cessation discussed for >3mins.? @ -no Was critical care preformed (if so, how long)? @ -no Were there social determinants of health that impacted care today? How? (Homelessness, low income, unemployed, alcoholism, drug addiction, transportation, low edu. Level, literacy, decrease access to med. care, long-term, rehab)? @ -none Was there de-escalation of care discussed even if they declined (Discuss DNR or withdrawal of care, Hospice)? DNR status @ -no What co-morbidities impacted this encounter? (DM, HTN, Smoking, COPD, CAD, Cancer, CVA, ARF, Chemo, Hep., AIDS, mental health diagnosis, sleep apnea, morbi d obesity)? @ -none Was patient admitted / discharged? Hospital course, mention meds given and rout e, prescriptions, significant lab abnormalities, going to OR and other pertinent info. @ - 83 male to the ER for evaluation of significant abnormal lab test increasing white blood cell count patient admitted for oncology evaluation Admitted Undiagnosed new problem with uncertain prognosis? @ -no Drug Therapy requiring intensive monitoring for toxicity (Heparin, Nitro, Insulin, Cardizem)? @ -no Were any procedures done? @ -no Diagnosis/symptom? @ -Severe leukocytosis Acute, or Chronic, or Acute on Chronic? @ -Acute Uncomplicated (without systemic symptoms) or Complicated (systemic symptoms)? @ -Complicated Side effects of treatment? @ -no Exacerbation, Progression, or Severe Exacerbation? @ -exacerbation Poses a threat to life or bodily function? How? (Chest pain, [place], [place], pneumonia, PE, COPD, DKA, ARF, appy, cholecystitis, CVA, Diverticulitis, Homicidal, Suicidal, threat to staff... and all critical care pts) @ -yes with significant extreme of age and cancer - Consultations Consultation #1: With Dr. Quinones agrees to admit this patient Medical Decision Making - Medical Decision Making 83 male to the ER for evaluation of significant abnormal lab test increasing white blood cell count patient admitted for oncology evaluation - Lab Data Result diagrams: 08/27/23 06:20 08/27/23 06:20 Lab Results 08/26/23 08/26/23 08/26/23 Range/Units 11:26 11:26 11:26 WBC 41.0 H (3.8-10.6) k/uL RBC 4.27 L (4.30-5.90) m/uL Hgb 13.3 (13.0-17.5) gm/dL Hct 41.2 (39.0-53.0) % MCV 96.5 (80.0-100.0) fL MCH 31.2 (25.0-35.0) pg MCHC 32.4 (31.0-37.0) g/dL RDW 13.2 (11.5-15.5) % Plt Count 109 L (150-450) k/uL MPV 11.3 Neutrophils % (Manual) 13 % Lymphocytes % (Manual) 84 % Monocytes % (Manual) 2 % Eosinophils % (Manual) 2 % Neutrophils # (Manual) 5.33 (1.3-7.7) k/uL Lymphocytes # (Manual) 34.44 H (1.0-4.8) k/uL Monocytes # (Manual) 0.82 (0-1.0) k/uL Eosinophils # (Manual) 0.82 H (0-0.7) k/uL Nucleated RBCs 0 (0-0) /100 WBC Manual Slide Review Performed Pathologist Review See comment A PT 11.1 (10.0-12.5) sec INR 1.0 (<1.2) APTT 28.2 (22.0-30.0) sec Sodium 136 L (137-145) mmol/L Potassium 5.1 (3.5-5.1) mmol/L Chloride 100 (98-107) mmol/L Carbon Dioxide 29 (22-30) mmol/L Anion Gap 7 mmol/L BUN 24 H (9-20) mg/dL Creatinine 0.74 (0.66-1.25) mg/dL Est GFR (CKD-EPI)AfAm >90 (>60 ml/min/1.73 sqM) Est GFR (CKD-EPI)NonAf 86 (>60 ml/min/1.73 sqM) Glucose 92 (74-99) mg/dL Plasma Lactic Acid Ramu (0.7-2.0) mmol/L Calcium 9.2 (8.4-10.2) mg/dL Phosphorus 4.4 (2.5-4.5) mg/dL Magnesium 2.0 (1.6-2.3) mg/dL Total Bilirubin 0.5 (0.2-1.3) mg/dL AST 39 (17-59) U/L ALT 17 (4-49) U/L Alkaline Phosphatase 87 (38-126) U/L Troponin I (0.000-0.034) ng/mL Total Protein 7.2 (6.3-8.2) g/dL Albumin 3.8 (3.5-5.0) g/dL Urine Color Urine Appearance (Clear) Urine pH (5.0-8.0) Ur Specific [place] (1.001-1.035) Urine Protein (Negative) Urine Glucose (UA) (Negative) Urine Ketones (Negative) Urine Blood (Negative) Urine Nitrite (Negative) Urine Bilirubin (Negative) Urine Urobilinogen (<2.0) mg/dL Ur Leukocyte Esterase (Negative) Influenza Type A (PCR) (Not Detectd) Influenza Type B (PCR) (Not Detectd) RSV (PCR) (Not Detectd) SARS-CoV-2 (PCR) (Not Detectd) Flow Results 08/26/23 08/26/23 08/26/23 Range/Units 11:26 11:26 11:26 WBC (3.8-10.6) k/uL RBC (4.30-5.90) m/uL Hgb (13.0-17.5) gm/dL Hct (39.0-53.0) % MCV (80.0-100.0) fL MCH (25.0-35.0) pg MCHC (31.0-37.0) g/dL RDW (11.5-15.5) % Plt Count (150-450) k/uL MPV Neutrophils % (Manual) % Lymphocytes % (Manual) % Monocytes % (Manual) % Eosinophils % (Manual) % Neutrophils # (Manual) (1.3-7.7) k/uL Lymphocytes # (Manual) (1.0-4.8) k/uL Monocytes # (Manual) (0-1.0) k/uL Eosinophils # (Manual) (0-0.7) k/uL Nucleated RBCs (0-0) /100 WBC Manual Slide Review Pathologist Review PT (10.0-12.5) sec INR (<1.2) APTT (22.0-30.0) sec Sodium (137-145) mmol/L Potassium (3.5-5.1) mmol/L Chloride (98-107) mmol/L Carbon Dioxide (22-30) mmol/L Anion Gap mmol/L BUN (9-20) mg/dL Creatinine (0.66-1.25) mg/dL Est GFR (CKD-EPI)AfAm (>60 ml/min/1.73 sqM) Est GFR (CKD-EPI)NonAf (>60 ml/min/1.73 sqM) Glucose (74-99) mg/dL Plasma Lactic Acid Ramu 1.3 (0.7-2.0) mmol/L Calcium (8.4-10.2) mg/dL Phosphorus (2.5-4.5) mg/dL Magnesium (1.6-2.3) mg/dL Total Bilirubin (0.2-1.3) mg/dL AST (17-59) U/L ALT (4-49) U/L Alkaline Phosphatase (38-126) U/L Troponin I <0.012 (0.000-0.034) ng/mL Total Protein (6.3-8.2) g/dL Albumin (3.5-5.0) g/dL Urine Color Urine Appearance (Clear) Urine pH (5.0-8.0) Ur Specific [place] (1.001-1.035) Urine Protein (Negative) Urine Glucose (UA) (Negative) Urine Ketones (Negative) Urine Blood (Negative) Urine Nitrite (Negative) Urine Bilirubin (Negative) Urine Urobilinogen (<2.0) mg/dL Ur Leukocyte Esterase (Negative) Influenza Type A (PCR) (Not Detectd) Influenza Type B (PCR) (Not Detectd) RSV (PCR) (Not Detectd) SARS-CoV-2 (PCR) (Not Detectd) Flow Results See Path Report 08/26/23 08/26/23 Range/Units 12:11 12:11 WBC (3.8-10.6) k/uL RBC (4.30-5.90) m/uL Hgb (13.0-17.5) gm/dL Hct (39.0-53.0) % MCV (80.0-100.0) fL MCH (25.0-35.0) pg MCHC (31.0-37.0) g/dL RDW (11.5-15.5) % Plt Count (150-450) k/uL MPV Neutrophils % (Manual) % Lymphocytes % (Manual) % Monocytes % (Manual) % Eosinophils % (Manual) % Neutrophils # (Manual) (1.3-7.7) k/uL Lymphocytes # (Manual) (1.0-4.8) k/uL Monocytes # (Manual) (0-1.0) k/uL Eosinophils # (Manual) (0-0.7) k/uL Nucleated RBCs (0-0) /100 WBC Manual Slide Review Pathologist Review PT (10.0-12.5) sec INR (<1.2) APTT (22.0-30.0) sec Sodium (137-145) mmol/L Potassium (3.5-5.1) mmol/L Chloride (98-107) mmol/L Carbon Dioxide (22-30) mmol/L Anion Gap mmol/L BUN (9-20) mg/dL Creatinine (0.66-1.25) mg/dL Est GFR (CKD-EPI)AfAm (>60 ml/min/1.73 sqM) Est GFR (CKD-EPI)NonAf (>60 ml/min/1.73 sqM) Glucose (74-99) mg/dL Plasma Lactic Acid Ramu (0.7-2.0) mmol/L Calcium (8.4-10.2) mg/dL Phosphorus (2.5-4.5) mg/dL Magnesium (1.6-2.3) mg/dL Total Bilirubin (0.2-1.3) mg/dL AST (17-59) U/L ALT (4-49) U/L Alkaline Phosphatase (38-126) U/L Troponin I (0.000-0.034) ng/mL Total Protein (6.3-8.2) g/dL Albumin (3.5-5.0) g/dL Urine Color Colorless Urine Appearance Clear (Clear) Urine pH 7.0 (5.0-8.0) Ur Specific [place] 1.010 (1.001-1.035) Urine Protein Negative (Negative) Urine Glucose (UA) Negative (Negative) Urine Ketones Negative (Negative) Urine Blood Negative (Negative) Urine Nitrite Negative (Negative) Urine Bilirubin Negative (Negative) Urine Urobilinogen <2.0 (<2.0) mg/dL Ur Leukocyte Esterase Negative (Negative) Influenza Type A (PCR) Not Detected (Not Detectd) Influenza Type B (PCR) Not Detected (Not Detectd) RSV (PCR) Not Detected (Not Detectd) SARS-CoV-2 (PCR) Not Detected (Not Detectd) Flow Results - EKG Data -: EKG Interpreted by Me (EKG is sinus bradycardia 58 MD 140 QRS 104 QTc 421) - Radiology Data Radiology results: report reviewed (Chest x-ray is negative for acute disease), image reviewed Disposition Clinical Impression: Weakness, Leukocytosis, Lymphoma Disposition: ADMITTED IP TO THIS HOSP Condition: Good Is patient prescribed a controlled substance at d/c from ED?: No Time of Disposition: 15:35
[2023-08-26 11:53] LABS: HCT 41.2 % (39.0-53.0); HGB 13.3 gm/dL (13.0-17.5); MCH 31.2 pg (25.0-35.0); MCHC 32.4 g/dL (31.0-37.0); MCV 96.5 fL (80.0-100.0); Mean Platelet Volume 11.3; Platelet Count 109 k/uL (150-450); RBC 4.27 m/uL (4.30-5.90); RDW 13.2 % (11.5-15.5)
[2023-08-26] MEDS: SODIUM CHLORIDE 0.9% 1,000 ML IV STA (11:55)
[2023-08-26 12:12] LABS: Partial Thromboplastin Time 28.2 sec (22.0-30.0); Prothrombin Time 11.1 sec (10.0-12.5)
[2023-08-26 12:13] LABS: ALT 17 U/L (4-49); AST 39 U/L (17-59); African American GFR (CKD) >90 (>60 ml/min/1.73 sqM); Albumin 3.8 g/dL (3.5-5.0); Alkaline Phosphatase 87 U/L (38-126); Anion Gap 7 mmol/L; Blood Urea Nitrogen 24 mg/dL (9-20); Calcium 9.2 mg/dL (8.4-10.2); Carbon Dioxide 29 mmol/L (22-30); Chloride 100 mmol/L (98-107); Glucose 92 mg/dL (74-99); Non-African American GFR(CKD) 86 (>60 ml/min/1.73 sqM); Phosphorus 4.4 mg/dL (2.5-4.5); Potassium 5.1 mmol/L (3.5-5.1); Sodium 136 mmol/L (137-145); Total Bilirubin 0.5 mg/dL (0.2-1.3); Total Protein 7.2 g/dL (6.3-8.2)
[2023-08-26 12:39] LABS: Eosinophils # (M) 0.82 k/uL (0-0.7); Lymphocytes # (M) 34.44 k/uL (1.0-4.8); Monocytes # (M) 0.82 k/uL (0-1.0); Neutrophils # (M) 5.33 k/uL (1.3-7.7); Neutrophils % (M) 13 %; Nucleated Red Blood Cells 0 /100 WBC (0-0); Total Cells Counted 200
--- NOTE | 2023-08-26 13:34 | XR ---
EXAMINATION TYPE: XR chest 2V DATE OF EXAM: 08/26/2023 1:08 PM CLINICAL INDICATION:Male, 83 years old with history of weak; [facility] COMPARISON: Chest radiographs from 09/24/2022 TECHNIQUE: XR chest 2V Frontal and lateral views of the chest. FINDINGS: Lungs/Pleura: Elevated left diaphragm. There is no evidence of pleural effusion, focal consolidation, or pneumothorax. Pulmonary vascularity: Unremarkable. Heart/mediastinum: Cardiomediastinal silhouette is unremarkable. Musculoskeletal: No acute osseous pathology. Other findings: Large hiatal hernia. IMPRESSION: 1. Chronic changes, No acute cardiopulmonary disease/process. 2. Large hiatal hernia
[2023-08-26 14:37] LABS: Appearance,Urine Clear (Clear); Bilirubin,Urine Negative (Negative); Blood,Urine Negative (Negative); Color,Urine Colorless; Glucose,Urine (UA) Negative (Negative); Ketones,Urine Negative (Negative); Leukocyte Esterase,Urine Negative (Negative); Nitrite,Urine Negative (Negative); Protein,Urine Negative (Negative); Urobilinogen,Urine <2.0 mg/dL (<2.0)
[2023-08-26] MEDS ORDERED: NALOXONE 0.4 MG/ML 1 ML VIAL IV PRN (15:20)
[2023-08-26] MEDS: SODIUM CHLORIDE 0.9% 1,000 ML IV SCH (16:00)
[2023-08-26] MEDS ORDERED: CALCIUM CARBONATE 500 MG CHEWABLE PO PRN (17:49)
[2023-08-26] MEDS ORDERED: ONDANSETRON 4 MG/2 ML VIAL IVP PRN (17:49)
[2023-08-26] MEDS ORDERED: ACETAMINOPHEN TAB 325 MG TAB PO PRN (17:49)
[2023-08-26] MEDS ORDERED: LACTULOSE 20 GM/30 ML CUP PO PRN (17:49)
[2023-08-26] MEDS ORDERED: ALPRAZolam 0.25 MG TAB PO PRN (17:49)
[2023-08-26] MEDS: ENOXAPARIN 40 MG/0.4 ML SYRINGE SQ SCH (18:22)
[2023-08-26] MEDS: CHOLECALCIFEROL 25 MCG (1000 IU) TABLET PO SCH (21:01)
[2023-08-26] MEDS: ATORVASTATIN 40 MG TAB PO SCH (21:01)
[2023-08-26] MEDS: MULTIVITAMINS, THERA 1 EACH TAB PO SCH (21:01)
[2023-08-26] MEDS: QUEtiapine 50 MG TAB PO SCH (21:01)
[2023-08-26] MEDS: MELATONIN 5 MG TABLET PO SCH (21:02)
[2023-08-26] MEDS: SERTRALINE 50 MG TAB PO SCH (21:02)
--- NOTE | 2023-08-26 21:30 | P.HPIM ---
History of Present Illness H&P Date: 08/26/23 Chief Complaint: Leukocytosis This is a pleasant 83-year-old patient, follows with visiting physician Dr. Casimiro Feldman. Patient was brought in by the EMS. Patient has a bilateral below- knee amputee. He is developmentally delayed able to answer only very simple questions he does not know why he is here in the hospital. He was sent in by his PCP for concern to rule out UTI. Patient denies any urinary symptoms. He is incontinent. Denies any respiratory symptoms. Review of systems: GEN.: None EYES: None HEENT: None NECK: None RESPIRATORY: None CARDIOVASCULAR: None GASTROINTESTINAL: None GENITOURINARY: None MUSCULOSKELETAL: Lateral AKA LYMPHATICS: None HEMATOLOGICAL: None PSYCHIATRY: Forgetful NEUROLOGICAL: None Social history: Former smoker. Drinks 1 beer per month. Has a guardian Physical examination: VITAL SIGNS: 98.4, 66, 16, 94/64, 94% room air GENERAL: BMI 27.1, sitting on bed comfortable watching TV. EYES: Pupils equal. Conjunctiva axel l. HEENT: External appearance of nose and ears normal, oral cavity grossly normal. Missing dentition. NECK: JVD not raised; masses not palpable. HEART: First and second heart sounds are normal; no edema. LUNGS: Respiratory rate normal; clear to auscultation. ABDOMEN: [Soft, nontender, liver spleen not palpable, no masses palpable wearing a diaper PSYCH: Alert and oriented x3; mood and affect axel l. MUSCULOSKELETAL:No Clubbing/cyanosis;muscles-grossly intact. Bilateral below above-knee amputation NEUROLOGICAL: Cranial nerves grossly intact; no facial asymmetry, power and sensation grossly intact. LYMPHATICS: No lymph nodes palpable in the axilla and neck INVESTIGATIONS, reviewed in the clinical context: August 26, 2023: White count 41 hemoglobin 13.3 platelets 109 pro time 11.1 sodium 136 potassium 5.1 BUN 24 creatinine 0.74. Increased lymphocytes. Increase sleep eosinophils. UA: Negative Influenza type A, type B, RSV, COVID-19: Not detected EKG tracing personally reviewed by me-normal sinus rhythm Chest x-ray film personally reviewed by me-large hiatal hernia elevated left diaphragm Assessment plan: -Leukocytosis. 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 Did not see any premature cells reported. Absolute count of lymphocytes and eosinophils both high. No clinical evidence of infection. Consult hematology -Developmental delay, with advanced cognitive impairment -Chronic insomnia Melatonin -BPH with urine incontinence Flomax 0.4 mg a day -Essential hypertension Norvasc 5 mg a day, Toprol-XL 25 mg a day -Bipolar disorder Zoloft 50 mg nightly. Seroquel 50 mg nightly -Full code -Legal guardian Care was discussed with the patient. Has limited understanding. Past Medical History Past Medical History: Coronary Artery Disease (CAD), COPD, Eye Disorder, GERD/Reflux, Hypertension, Seizure Disorder, Vascular Disorder Additional Past Medical History / Comment(s): developmental delay/mental r etardation. Ulcer right ankle, 2010 ULCER, SEIZURES YEARS AGO NOT TAKING MEDS FOR IT SINCE OCTOBER 2013 , PAD, hyponatremia. History of Any Multi-Drug Resistant Organisms: None Reported Additional Past Surgical History / Comment(s): L Carotid endarectomy, angiogram was done on 05/24/[address] [facility], bilateral AKA Past Anesthesia/Blood Transfusion Reactions: No Reported Reaction Past Psychological History: Bipolar Additional Psychological History / Comment(s): NOT ON MEDS FOR IT CURRENTLT DF/T LETHARGY Smoking Status: Former smoker Past Alcohol Use History: Rare Past Drug Use History: None Reported Additional Drug Use History / Comment(s): patient drinks 1 NA beer per month - Past Family History Father Family Medical History: Unable to Obtain Mother Family Medical History: Unable to Obtain Additional Family Medical History / Comment(s): Patient Mentaly delayed Medications and Allergies Home Medications Medication Instructions Recorded Confirmed Type Metoprolol Succinate [Toprol XL] 25 mg PO DAILY@0800 04/09/14 08/26/23 History QUEtiapine [SEROquel] 50 mg PO HS@199906/03/14 08/26/23 History Bacitracin Zinc Oint 1 applic TOPICAL BID@0800,199905/02/22 08/26/23 History Cholecalciferol [Vitamin D3 (25 50 mcg PO HS@199905/02/22 08/26/23 History Mcg = 1000 Iu)] Multivitamins, Thera [Multivitamin 1 tab PO HS@199905/02/22 08/26/23 History (formulary)] Sertraline [Zoloft] 50 mg PO HS@199905/02/22 08/26/23 History Tamsulosin [Flomax] 0.4 mg PO DAILY@1600 05/02/22 08/26/23 History amLODIPine [Norvasc] 5 mg PO DAILY@0800 05/02/22 08/26/23 History Aspirin 81 mg PO DAILY@79908/26/23 08/26/23 History Atorvastatin Calcium [Lipitor] 40 mg PO HS@199908/26/23 08/26/23 History Doxycycline Hyclate 100 mg PO BID@08,199908/26/23 08/26/23 History Melatonin 5 mg PO HS@199908/26/23 08/26/23 History Allergies Allergy/AdvReac Type Severity Reaction Status Date / Time tuberculin, purified protein Allergy Unknown Verified 08/26/23 12:39 deriva [tuberculin,purif.prot.deriv.] Physical Exam Vitals: Vital Signs Temp Pulse Resp BP Pulse Ox 08/26/23 18:00 66 16 94/64 94 L 08/26/23 16:05 98.4 F 60 17 139/79 98 08/26/23 14:59 54 L 16 163/89 99 08/26/23 13:36 99.0 F 89 16 119/65 98 08/26/23 10:56 97.8 F 73 20 132/70 97 Intake and Output 08/26/23 08/26/23 08/26/23 06:59 14:59 22:59 Other: Weight 63 kg 63 kg Results CBC & Chem 7: 08/26/23 11:26 08/26/23 11:26 Labs: Abnormal Lab Results - Last 24 Hours (Table) 08/26/23 08/26/23 Range/Units 11:26 11:26 WBC 41.0 H (3.8-10.6) k/uL RBC 4.27 L (4.30-5.90) m/uL Plt Count 109 L (150-450) k/uL Lymphocytes # (Manual) 34.44 H (1.0-4.8) k/uL Eosinophils # (Manual) 0.82 H (0-0.7) k/uL Sodium 136 L (137-145) mmol/L BUN 24 H (9-20) mg/dL
[2023-08-26] MEDS: BACITRACIN ZINC 500 UNIT/GM OINT 28.4 GM TUBE TOPICAL SCH (23:49)
[2023-08-27 06:30] VITALS: RESP 18
[2023-08-27 07:08] LABS: ALT 15 U/L (4-49); AST 35 U/L (17-59); African American GFR (CKD) >90 (>60 ml/min/1.73 sqM); Albumin 3.3 g/dL (3.5-5.0); Alkaline Phosphatase 86 U/L (38-126); Anion Gap 5 mmol/L; Blood Urea Nitrogen 21 mg/dL (9-20); Calcium 8.5 mg/dL (8.4-10.2); Carbon Dioxide 25 mmol/L (22-30); Chloride 106 mmol/L (98-107); Glucose 90 mg/dL (74-99); Non-African American GFR(CKD) 85 (>60 ml/min/1.73 sqM); Phosphorus 4.5 mg/dL (2.5-4.5); Potassium 4.5 mmol/L (3.5-5.1); Sodium 136 mmol/L (137-145); Total Bilirubin 0.4 mg/dL (0.2-1.3); Total Protein 6.3 g/dL (6.3-8.2)
[2023-08-27 07:18] LABS: HCT 37.7 % (39.0-53.0); MCH 31.8 pg (25.0-35.0); MCHC 31.8 g/dL (31.0-37.0); Mean Platelet Volume 9.6; Platelet Count 103 k/uL (150-450); RBC 3.77 m/uL (4.30-5.90); RDW 13.1 % (11.5-15.5); WBC 47.4 k/uL (3.8-10.6)
[2023-08-27] MEDS: ASPIRIN 81 MG PO SCH (08:33)
[2023-08-27] MEDS: amLODIPine 5 MG TAB PO SCH (08:33)
[2023-08-27] MEDS: METOPROLOL SUCCINATE (ER) 25 MG TAB.ER.24H PO SCH (08:33)
[2023-08-27 08:46] VITALS: BP 121/65; PULSE 52; TEMP 97.8
[2023-08-27 08:55] LABS: Lymphocytes # (M) 42.66 k/uL (1.0-4.8); Monocytes # (M) 0.47 k/uL (0-1.0); Neutrophils # (M) 4.27 k/uL (1.3-7.7); Neutrophils % (M) 9 %; Nucleated Red Blood Cells 0 /100 WBC (0-0); Total Cells Counted 100
--- NOTE | 2023-08-27 11:37 | P.DS ---
Providers Date of admission: 08/26/23 15:24 Expected date of discharge: 08/27/23 Attending physician: Clement Miranda Consults: 08/26/23 15:20 Consult Physician Routine Consulting Provider: Yoana Whitaker Consult Reason/Comments: incWBC Do you want consulting provider notified?: Yes Primary care physician: Angel Feldman MD Hospital Course: Chief Complaint: Leukocytosis This is a pleasant 83-year-old patient, follows with visiting physician Dr. Casimiro Feldman. Patient was brought in by the EMS. Patient has a bilateral below- knee amputee. He is developmentally delayed able to answer only very simple questions he does not know why he is here in the hospital. He was sent in by his PCP for concern to rule out UTI. Patient denies any urinary symptoms. He is incontinent. Denies any respiratory symptoms. August 26: Patient comfortable. No infective symptoms. Spoke to CHELSEY Mcgee from hematology. Sending off some blood work. Patient stable for discharge. Follow-up in office with Dr. Banerjee. 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 Social history: Former smoker. Drinks 1 beer per month. Has a guardian Physical examination: VITAL SIGNS: 97.8, 52, 16, 121/65, 92% room air GENERAL: Sitting on bed, comfortable EYES: Pupils equal. Conjunctiva axel l. HEENT: External appearance of nose and ears normal, oral cavity grossly normal. Missing dentition. NECK: JVD not raised; masses not palpable. HEART: First and second heart sounds are normal; no edema. LUNGS: Respiratory rate normal; clear to auscultation. ABDOMEN: [Soft, nontender, liver spleen not palpable, no masses palpable wearing a diaper PSYCH: Alert and oriented x3; mood and affect axel l. MUSCULOSKELETAL:No Clubbing/cyanosis;muscles-grossly intact. Bilateral below above-knee amputation INVESTIGATIONS, reviewed in the clinical context: August 26: White count 47.4 hemoglobin 12 platelets 103 potassium 4.5 creatinine 0.77 August 26, 2023: White count 41 hemoglobin 13.3 platelets 109 pro time 11.1 sodium 136 potassium 5.1 BUN 24 creatinine 0.74. Increased lymphocytes. Increase eosinophils. UA: Negative Influenza type A, type B, RSV, COVID-19: Not detected EKG tracing personally reviewed by me-normal sinus rhythm Chest x-ray film personally reviewed by me-large hiatal hernia elevated left diaphragm Assessment plan: -Leukocytosis. 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 Absolute count of lymphocytes and eosinophils both high. No clinical evidence of infection. \ Seen by Dr. Banerjee from hematology. They sent some more blood work. Will follow- up outpatient -Developmental delay, with advanced cognitive impairment -Chronic insomnia Melatonin -Mild thrombocytopenia -BPH with urine incontinence Flomax 0.4 mg a day -Essential hypertension Norvasc 5 mg a day, Toprol-XL 25 mg a day -Bipolar disorder Zoloft 50 mg nightly. Seroquel 50 mg nightly -Full code -Legal guardian Disposition: Home care was discussed with the patient. Has limited understanding. Past Medical History Past Medical History: Coronary Artery Disease (CAD), COPD, Eye Disorder, GERD/Reflux, Hypertension, Seizure Disorder, Vascular Disorder Additional Past Medical History / Comment(s): developmental delay/mental retardation. Ulcer right ankle, 2010 ULCER, SEIZURES YEARS AGO NOT TAKING MEDS FOR IT SINCE OCTOBER 2013 , PAD, hyponatremia. History of Any Multi-Drug Resistant Organisms: None Reported Additional Past Surgical History / Comment(s): L Carotid endarectomy, angiogram was done on 05/24/2014 at [facility], bilateral AKA Past Anesthesia/Blood Transfusion Reactions: No Reported Reaction Past Psychological History: Bipolar Additional Psychological History / Comment(s): NOT ON MEDS FOR IT CURRENTLT DF/T LETHARGY Smoking Status: Former smoker Past Alcohol Use History: Rare Past Drug Use History: None Reported Additional Drug Use History / Comment(s): patient drinks 1 NA beer per month Plan - Discharge Summary New Discharge Prescriptions: Continue Metoprolol Succinate [Toprol XL] 25 mg PO DAILY@0800 QUEtiapine [SEROquel] 50 mg PO HS@2000 Cholecalciferol [Vitamin D3 (25 Mcg = 1000 Iu)] 50 mcg PO HS@2000 Multivitamins, Thera [Multivitamin (formulary)] 1 tab PO HS@2000 Aspirin 81 mg PO DAILY@0800 Atorvastatin Calcium [Lipitor] 40 mg PO HS@2000 Tamsulosin [Flomax] 0.4 mg PO DAILY@1600 Sertraline [Zoloft] 50 mg PO HS@2000 amLODIPine [Norvasc] 5 mg PO DAILY@0800 Bacitracin Zinc Oint 1 applic TOPICAL BID@0800,1999 Melatonin 5 mg PO HS@1999 Discontinued Doxycycline Hyclate 100 mg PO BID@ Discharge Medication List Metoprolol Succinate [Toprol XL] 25 mg PO DAILY@0804/09/14 [History] QUEtiapine [SEROquel] 50 mg PO HS@199906/03/14 [History] Bacitracin Zinc Oint 1 applic TOPICAL BID@799,199905/02/22 [History] Cholecalciferol [Vitamin D3 (25 Mcg = 1000 Iu)] 50 mcg PO HS@199905/02/22 [History] Multivitamins, Thera [Multivitamin (formulary)] 1 tab PO HS@199905/02/22 [Hist ory] Sertraline [Zoloft] 50 mg PO HS@199905/02/22 [History] Tamsulosin [Flomax] 0.4 mg PO DAILY@1600 05/02/22 [History] amLODIPine [Norvasc] 5 mg PO DAILY@0800 05/02/22 [History] Aspirin 81 mg PO DAILY@0808/26/23 [History] Atorvastatin Calcium [Lipitor] 40 mg PO HS@199908/26/23 [History] Melatonin 5 mg PO HS@199908/26/23 [History] Follow up Appointment(s)/Referral(s): John Banerjee [STAFF PHYSICIAN] - 10 Days Sky Bhandari DO [REFERRING] - 1-2 days Patient Instructions/Handouts: Leukocytosis (DC), Weakness (DC)
[2023-08-27] MEDS ORDERED: TAMSULOSIN 0.4 MG CAP.ER.24H PO SCH (16:00)
== END 2023-08-27 13:23 | disposition home or self-care (01) | DRG 842 ==
LOC: EC 10:53 → 5NMEDONC 15:24 → 1SOBS 16:57
PROVIDERS: ADMIT Hospitalist; ATTEND Hospitalist
DX: C91.10 Chronic lymphocytic leukemia of B-cell type not having achieved remission (principal); F79 Unspecified intellectual disabilities; G40.909 Epilepsy, unspecified, not intractable, without status epilepticus; I10 Essential (primary) hypertension; F51.04 Psychophysiologic insomnia; I25.10 Atherosclerotic heart disease of native coronary artery without angina pectoris; J44.9 Chronic obstructive pulmonary disease, unspecified; K21.9 Gastro-esophageal reflux disease without esophagitis; N40.1 Benign prostatic hyperplasia with lower urinary tract symptoms; N39.498 Other specified urinary incontinence; Z11.52 Encounter for screening for COVID-19; Z79.82 Long term (current) use of aspirin; Z79.899 Other long term (current) drug therapy; Z87.891 Personal history of nicotine dependence; Z89.611 Acquired absence of right leg above knee; Z89.612 Acquired absence of left leg above knee; Z88.8 Allergy status to other drugs, medicaments and biological substances
CPT/HCPCS: 36415; 71046; 80053; 81003; 83605; 83615; 83735; 84100; 84484; 85025; 85610; 85730; 87636; 93005; 96360; 96361; 96372; 99285